=== PATIENT | female | born 1950 | race Caucasian/White ===

== ENCOUNTER 2017-08-21 13:05 | Day surgery (SDC) | payer MEDICARE, OTHER ==
[~2017-08-21] VITALS: Ht 170.2 cm; Wt 83.5 kg
[~2017-08-21 13:05] MED LIST: AMBIEN5 MG PO; GABAPENTIN600 MG PO; IMODIUM A-D2 M1 PO; PRILOSEC20 MG PO; SYNTHROID200 MCG PO; ZOFRAN4 MG PO
[2017-08-21] MEDS ORDERED: TYLENOL WITH C1 EACH PO (13:32)
[2017-08-21] MEDS ORDERED: ESCITALOPRAM OX20 MG PO (13:32)
[2017-08-21] MEDS ORDERED: BUPROPION XL150 MG PO (13:32)
--- NOTE | 2017-08-21 18:18 | NUR ---
08/21/171817 Phyllis Munroe 1813: PT ARRIVES TO PACU. SHE REPSONDS TO STIMULI.
--- NOTE | 2017-08-22 15:03 | OR ---
[facility] [address] [place], [place] [address] Signed DATE OF OPERATION: 08/21/2017 SURGEON: Nata Blandon MD PREOPERATIVE DIAGNOSIS: Persistent diarrhea since Cecilia fundoplication. POSTOPERATIVE DIAGNOSIS: 1. Sigmoid diverticulosis. 2. Mild proctitis. PROCEDURE: Total colonoscopy to cecum with biopsy of cecum and rectum. ANESTHESIA: Intravenous sedation with fentanyl 100 mcg and Versed 6 mg. INDICATION: This debilitated 66-year-old white woman was known to have significant esophageal dysmotility and reflux type symptoms. She was seen by Chemo Ruby MD in [place] and ultimately underwent laparoscopic Cecilia fundoplication. Her reflux symptoms seem to have improved though she still has some dysphagia as would be expected. Since the operation, however, she has had rather persistent unrelenting diarrhea. She is not known to have blood per rectum, family history of inflammatory bowel disease or colon cancer, and it is uncertain if perhaps there has been some affect on her vagal nerve trunks with operative intervention. She is admitted to undergo colonoscopy to assess for other etiologies of her diarrhea problem. She understands the risks of bleeding, infection, and perforation. FINDINGS: The prep was reasonably good. There was a minimal amount of solid stool still present. Complete colonoscopy was undertaken. Biopsies were taken of the cecum and rectum. There were numerous diverticula of the sigmoid colon. No sign of severe inflammation. There was mild proctitis, possibly bowel prep related. PROCEDURE: The patient was brought to the endoscopy suite and placed in lateral decubitus position, given intravenous sedation to the point of slurred speech and nystagmus. Digital rectal examination was normal. An Olympus video colonoscope was passed in the rectum and manipulated throughout the colon. Numerous diverticula were seen in the sigmoid. The scope was passed beyond the transverse colon to the right colon. There was a fair amount of semisolid stool, which required irrigation and so forth, but ultimately it is believed that the cecum was fully seen. Biopsies were taken through somewhat greenish bowel effluent of the cecum and biopsies obtained to assess for occult colitis. The scope was withdrawn from that point, examination throughout showed no abnormality other than the diverticula of the sigmoid. Retroflexed view of the rectum did show mild proctitis of uncertain and unlikely consequence. Biopsies were obtained there as well. The scope was Electronically Signed By: NATA BLANDON MD 08/22/17 1503 PATIENT NAME: BARBARA ROTHMAN OPERATIVE REPORT DATE OF : 50 PHYSICIAN: NATA BLANDON MD REPORT #: [id number] REPORT IS CONFIDENTIAL AND NOT TO BE RELEASED WITHOUT AUTHORIZATION [address] [address] Signed removed and the patient was taken to recovery room in good condition. CONCLUDING DIAGNOSIS: It is uncertain what the source of her diarrhea is. Notably, she does continue to take Prilosec. I would have her discontinue the Prilosec given her operative intervention and initiate Citrucel 1 tablespoon each day. She will see us back in 6 weeks, if she is not improved. MD MADI Amador/DEBBY /[id number] cc: MARIA G Lazaro Electronically Signed By: NATA BLANDON MD 08/22/17 1503 PATIENT NAME: BARBARA ROTHMAN FAUSTINO OPERATIVE REPORT DATE OF : 50 PHYSICIAN: NATA BLANDON MD REPORT #: [id number] REPORT IS CONFIDENTIAL AND NOT TO BE RELEASED WITHOUT AUTHORIZATION
== END 2017-08-21 19:05 | disposition home or self-care (01) ==
LOC: DS 13:05 → OPS 13:05 → DS 14:00 → OPS 14:00
PROVIDERS: Surgery
PROC: 0DBP8ZX Excision of Rectum, Via Natural or Artificial Opening Endoscopic, Diagnostic (ICD-10-PCS; 2017-08-21)
PROC: 0DBH8ZX Excision of Cecum, Via Natural or Artificial Opening Endoscopic, Diagnostic (ICD-10-PCS; principal; 2017-08-21 14:00)
DX: K52.9 Noninfective gastroenteritis and colitis, unspecified (principal); K57.30 Diverticulosis of large intestine without perforation or abscess without bleeding; K62.89 Other specified diseases of anus and rectum; K44.9 Diaphragmatic hernia without obstruction or gangrene; E66.3 Overweight; K21.9 Gastro-esophageal reflux disease without esophagitis; G47.30 Sleep apnea, unspecified; F32.9 Major depressive disorder, single episode, unspecified; D64.9 Anemia, unspecified; E89.0 Postprocedural hypothyroidism; Z90.49 Acquired absence of other specified parts of digestive tract; Z79.899 Other long term (current) drug therapy; Z98.890 Other specified postprocedural states; Z98.41 Cataract extraction status, right eye; Z98.42 Cataract extraction status, left eye; Z99.89 Dependence on other enabling machines and devices; Z68.29 Body mass index [BMI] 29.0-29.9, adult
CPT/HCPCS: 88305; 99152; 99153; J2250; J3010; J7120

== ENCOUNTER 2019-01-25 13:57 | Day surgery (SDC) | payer MEDICARE, OTHER ==
[~2019-01-25] VITALS: Ht 167.6 cm; Wt 69.4 kg
[~2019-01-25 13:57] MED LIST changes: +BUPROPION XL150 MG PO; +ESCITALOPRAM OX20 MG PO; +HYDROCODON-ACE1 EA10 PO; +IBUPROFEN600 MG PO; +LEVOTHYROXINE88 MCG PO; +MAPAP325 MG PO; +NORCO 5-325 TA1 EACH PO; +TYLENOL WITH C1 EACH PO; +ULTRAM50 MG PO
--- NOTE | 2019-01-25 16:20 | NUR ---
01/25/19 1620 Tali Yañez 1613- PT ARRIVES TO PACU EASILY AROUSABLE ALTHOUGH DROWSY. RESP EVEN AND UNLABORED. OXYGEN SAT HIGH 90'S TO 100% ON 2L VIA NC. 1619- OXYGEN TURNED OFF. OXYGEN SAT HIGH 90'S TO 100% ON RA. RESP EVEN AND UNLABORED. PT IS AROUSABLE AND OPENS EYES PERIODICALLY ON HER OWN, INSTANTLY FALLS BACK TO SLEEP.
--- NOTE | 2019-01-26 18:55 | OR ---
[facility] [address] [place], [place] [address] Signed DATE OF OPERATION: 01/25/2019 SURGEON: Nata Blandon MD PREOPERATIVE DIAGNOSES: 1. Persistent diarrhea. 2. Normal colonoscopy on August 21, 2017 (diverticulosis). 3. Recent CT scan with concentric lesion of mid transverse colon. POSTOPERATIVE DIAGNOSIS: No evidence of lesion of transverse colon or elsewhere; diverticulosis. PROCEDURE: Total colonoscopy to cecum with biopsy of rectum. ANESTHESIA: Intravenous sedation, fentanyl 100 mcg, and Versed 4 mg. INDICATION: This 68-year-old white woman is a patient of MARIA G Lazaro. She is known to have esophageal dysmotility and ultimately underwent laparoscopic Cecilia fundoplication in [place], [place] for intractable reflux problems. Since that time, she has had problems with diarrhea, abdominal pain, and so forth. She shows no evidence of gastroparesis on studies. She has undergone cholecystectomy for chronic cholecystitis in the past several months. She recently underwent CT scan under the direction of MARIA G Lazaro, which showed a concentric lesion of the mid transverse colon, highly suspect for cancer, though no sign of surrounding abnormality is noted. She was admitted at this time to undergo colonoscopy to better characterize this lesion if present. The risks of bleeding, infection, perforation, and so forth were reviewed with her. She understands and wished to proceed. FINDINGS: There was no lesion to correspond to the CT scan findings. I suspect the "high shutter speed" of the CT scan captured a segmental contraction. There were numerous diverticula of sigmoid and left colon. There was no sign of polyps, colitis, cancer, or other issues. DESCRIPTION OF PROCEDURE: The patient was brought to the endoscopy suite and placed in lateral decubitus position, given intravenous sedation to the point of slurred speech and nystagmus. Digital rectal Electronically Signed By: NATA BLANDON MD 01/26/19 8123 PATIENT NAME: BARBARA ROTHMAN OPERATIVE REPORT DATE OF : 50 REPORT #: [id number] PHYSICIAN: NATA BLANDON MD PCP: JANNETTE GARCIA REPORT IS CONFIDENTIAL AND NOT TO BE RELEASED WITHOUT AUTHORIZATION [facility] [address] [place], [place] [address] Signed examination was normal. An Olympus video colonoscope was passed in the rectum and manipulated throughout the colon ultimately intubating the cecum itself. The ileocecal valve and appendiceal orifice were normal. The scope was withdrawn from that point and careful inspection upon withdrawal of scope showed no sign of abnormality. Special care was taken in the transverse colon corresponding to the CT scan spurious findings. Further withdrawal visualized diverticulosis of the left colon and sigmoid. Scope was withdrawn to the rectum, which was biopsied to assess for inflammatory bowel disease or other problem. Retroflexed view was normal as well. The scope was removed and the patient was taken to recovery room in good condition. CONCLUDING DIAGNOSIS: Sigmoid diverticulosis. No evidence of transverse colon lesion. Biopsies obtained to assess for collagenous colitis or lymphocytic colitis. PLAN: She will return to the ongoing care of MARIA G Lazaro. We will review her path reports when they are available. MD MADI Amador/DEBBY /[id number] cc: MARIA G Lazaro Copies: JANNETTE GARCIA ~ Electronically Signed By: NATA BLANDON MD 01/26/19 1855 PATIENT NAME: BARBARA ROTHMAN OPERATIVE REPORT DATE OF : 50 REPORT #: [id number] PHYSICIAN: NATA BLANDON MD PCP: JANNETTE GARCIA REPORT IS CONFIDENTIAL AND NOT TO BE RELEASED WITHOUT AUTHORIZATION
== END 2019-01-25 17:25 | disposition home or self-care (01) ==
LOC: OPS 13:57 → DS 13:57 → OPS 14:45
PROVIDERS: Surgery
PROC: 0DBP8ZX Excision of Rectum, Via Natural or Artificial Opening Endoscopic, Diagnostic (ICD-10-PCS; principal; 2019-01-25 14:45)
DX: R19.7 Diarrhea, unspecified (principal); K57.30 Diverticulosis of large intestine without perforation or abscess without bleeding; K21.9 Gastro-esophageal reflux disease without esophagitis; D64.9 Anemia, unspecified; F32.9 Major depressive disorder, single episode, unspecified; E03.9 Hypothyroidism, unspecified; G47.30 Sleep apnea, unspecified; K22.4 Dyskinesia of esophagus; K81.2 Acute cholecystitis with chronic cholecystitis; Z88.5 Allergy status to narcotic agent; Z88.8 Allergy status to other drugs, medicaments and biological substances; Z99.89 Dependence on other enabling machines and devices
CPT/HCPCS: 99153; G0500; J2250; J3010; J7120

== ENCOUNTER 2019-02-03 05:50 | Day surgery (SDC) | payer MEDICARE, OTHER ==
[~2019-02-03] VITALS: Ht 167.6 cm; Wt 69.4 kg
--- NOTE | ~2019-02-03 | OR ---
[facility] [address] [place], [place] [address] Draft DATE OF OPERATION: 02/03/2019 SURGEON: Luz Maria Rojas MD PREOPERATIVE DIAGNOSIS: Endometrial mass. POSTOPERATIVE DIAGNOSIS: Multiple endometrial polyps. PROCEDURE: Hysteroscopy resection of endometrial polyps. ANESTHESIA: General LMA. ESTIMATED BLOOD LOSS: Minimal. DRAINS: None. INDICATIONS AND FINDINGS: The patient is a 68-year-old female who has been having upper abdominal as well as pelvic pain over the last several months. During the course of her evaluation, she was found to have a very thick endometrial stripe. Endometrial biopsy was not possible in the office. She has had no bleeding. It was felt that further evaluation of the endometrium was needed. At the time of hysteroscopy, the uterus was top-normal size. There was significant uterine descent. The cavity sounded to 9 cm. There were multiple large polyps within the cavity on an atrophic background. DESCRIPTION OF PROCEDURE: The patient was prepped and draped in the dorsal lithotomy position. A weighted speculum was placed and the anterior lip of the cervix was visualized and grasped with a single-tooth tenaculum. The cavity sounded to 9 cm. The endocervical canal was then dilated to a #9 dilator. The MyoSure device was placed and the cavity evaluated, and the multiple large polyps were seen. Hysteroscope was removed and polyp forceps were introduced and several large polyps were removed from the uterus just with the polyp forceps. Replacement of the hysteroscope revealed that there were a few polypoid remnants on the posterior aspect and there was one that was fairly flattened at the PATIENT NAME: BARBARA ROTHMAN OPERATIVE REPORT DATE OF : 50 REPORT #: [id number] PHYSICIAN: LUZ MARIA ROJAS MD PCP: JANNETTE GARCIA REPORT IS CONFIDENTIAL AND NOT TO BE RELEASED WITHOUT AUTHORIZATION [facility] [address] [place] [address] Draft fundus in the midline. The MyoSure LITE device was then used and some of the polyp at the fundus could be excised, but given the angle and the fact that it was at the fundus, made it very difficult to completely excise this. The remaining portions of the polyps posteriorly were removed with a MyoSure LITE as well. Following this, the procedure was terminated. The tenaculum was removed and there was no evidence of any ongoing bleeding from the cervix. The patient was then taken to the recovery room in good condition. MD JUAN M Alvarado/MODL /[id number] cc: MARIA G Lazaro Copies: JANNETTE GARCIA ~ PATIENT NAME: BARBARA ROTHMAN OPERATIVE REPORT DATE OF : 50 REPORT #: [id number] PHYSICIAN: LUZ MARIA ROJAS MD PCP: JANNETTE GARCIA REPORT IS CONFIDENTIAL AND NOT TO BE RELEASED WITHOUT AUTHORIZATION
--- NOTE | 2019-02-03 08:03 | NUR ---
02/03/19 0803 Tami,Maia 0753 PT ARRIVED TO PACU ON 6L VIA MASK AND ORAL AIRWAY IN PLACE. PT REACTIVE TO TACTILE STIMULI. RESP EVEN AND UNLABORED. 0755 PT OPENING EYES AND FOLLOWS COMMANDS TO OPEN EYES, ORAL AIRWAY REMOVED. PT ENCOURAGED TO DEEP BREATHE. 0801 MD AT BEDSIDE TALKING TO PT, O2 MASK REMOVED. PT DENIES PAIN AND NAUSEA. PT BACK TO SLEEP.
--- NOTE | 2019-02-03 08:24 | NUR ---
ICED WATER GIVEN. PATIENT DRINKING AND TOLERATING THAT WELL. CALL LIGHT W/IN REACH.
--- NOTE | 2019-02-03 09:32 | NUR ---
LE 0920: PATIENT UP TO BATHROOM WITH RN STANDBY. PATIENT AMBULATES WELL AND VOIDS 500 ML CLEAR YELLOW URINE AND REQ DC HOME. DISCHARGE INSTRUCTIONS ARE GIVEN IN PRESENCE OF HER SON, SHAHEEN AND BOTH VERBALIZE UNDERSTANDING. PATIENT GETTING DRESSED.
--- NOTE | 2019-02-03 09:50 | NUR ---
PT ALERT, ORIENTED AND SEEMS WELL PREPARED FOR TODAY. FELIZ PEACE HAD JUST LEFT PT'S RM, SHE SEEMED AT EASE WITH HIS CARE. PLEASANT VISIT, EXTENDED BLESSING, DR MCCURDY ENTERED WE FINISHED. WILL FOLLOW NEEDED
== END 2019-02-03 09:30 | disposition home or self-care (01) ==
LOC: DS 05:50
PROVIDERS: Obstetrics & Gynecology
PROC: 0UB98ZZ Excision of Uterus, Via Natural or Artificial Opening Endoscopic (ICD-10-PCS; principal; 2019-02-03 06:45)
DX: N84.0 Polyp of corpus uteri (principal); G47.33 Obstructive sleep apnea (adult) (pediatric); E89.0 Postprocedural hypothyroidism; F43.10 Post-traumatic stress disorder, unspecified; F12.90 Cannabis use, unspecified, uncomplicated; K21.9 Gastro-esophageal reflux disease without esophagitis; Z88.5 Allergy status to narcotic agent; Z88.8 Allergy status to other drugs, medicaments and biological substances; Z79.899 Other long term (current) drug therapy
CPT/HCPCS: 00952; J0330; J1100; J1885; J2250; J2405; J2704; J2765; J3010; J7120

== ENCOUNTER 2019-05-18 22:56 | Emergency (ER) | payer MEDICARE, OTHER ==
[~2019-05-18] VITALS: Ht 167.6 cm; Wt 67.6 kg
--- OUTSIDE RECORDS SUMMARY | 2019-05-18 23:00 | XMS ---
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 Paty has no Care Guidelines for this patient. Too VISIT COUNT (12 MO.) 1 GILMA Alvarenga TOTAL 1 NOTE: Visits indicate total known visits. ED/C VISIT TRACKING (12 MO.) 05/18/2019 22:57 GILMA [place] TYPE: Emergency COMPLAINT: - FALL/FOOT PAIN INPATIENT VISIT TRACKING (12 MO.) No inpatient visits to display in this time frame [email or web address]
[2019-05-19] MEDS ORDERED: TRAMADOL HCL50 MG PO (00:04)
== END 2019-05-19 00:31 | disposition home or self-care (01) ==
LOC: ED 22:56
DX: S93.601A Unspecified sprain of right foot, initial encounter (principal); F32.9 Major depressive disorder, single episode, unspecified; Z88.5 Allergy status to narcotic agent; Z88.8 Allergy status to other drugs, medicaments and biological substances; Z79.899 Other long term (current) drug therapy; W18.30XA Fall on same level, unspecified, initial encounter
CPT/HCPCS: 73630; 99284

== ENCOUNTER 2019-08-21 17:44 | Observation (INO) | payer MEDICARE, OTHER ==
[~2019-08-21] VITALS: Ht 167.6 cm; Wt 67.6 kg
--- OUTSIDE RECORDS SUMMARY | ~2019-08-21 | XMS | Encounter Summary ---
Demographics + + + | Address | [address] | | | [place] [address] | + + + | Home Phone | | + + + | Preferred Language | Unknown | + + + | Marital Status | | + + + | Christian Affiliation | 1077 | + + + | Race | Unknown | + + + | Ethnic Group | Unknown | + + + Author + + + | Author | [facility] | | | and Vladislavana | + + + | Organization | [facility] | | | and Vladislavana | + + + | Address | Unknown | + + + | Phone | Unavailable | + + + Support + + +---------+ + | Name | Relationship | Address | Phone | + + +---------+ + | Devonte Nixon | ECON | Unknown | | + + +---------+ + Care Team Providers + +------+ + | Care Treating Plant Pumper Name | Role | Phone | + +------+ + PCP | Unavailable | + +------+ + Encounter Details +--------+ + + + + | Date | Type | Department | Care Team | Description | +--------+ + + + + | 06/21/ | Hospital | [facility] | | | | 1992 | Encounter | MED CTR XRAY [address] | | | | | | [address] | | | | | | [place] [address] | | | | | | [phone] | | | +--------+ + + + + Social History + +-------+ +--------+------+ | Tobacco Use | Types | Packs/Day | Years | Date | | | | | Used | | + +-------+ +--------+------+ | Never Assessed | | | | | + +-------+ +--------+------+ + + + | Sex Assigned at | Date Recorded | | | | + + + | Not on file | | + + + + + + + | Job Start Date | Occupation | Industry | + + + + | Not on file | Not on file | Not on file | + + + + + + + + | Travel History | Travel Start | Travel End | + + + + + + | No recent travel history available. | + + documented as of this encounter Plan of Treatment +--------+---------+ + + + | Date | Type | Specialty | Care Team | Description | +--------+---------+ + + + | 08/26/ | Office | Gastroenterology | [facility] | | 2019 | Visit | | RAJAN [address] | | | | | | [address] | | | | | | [place] | | | | | | [address] | | | | | | | | +--------+---------+ + + + documented as of this encounter Visit Diagnoses Not on filedocumented in this encounter"
--- OUTSIDE RECORDS SUMMARY | ~2019-08-21 | XMS | Encounter Summary ---
Demographics + + + | Address | [address] | | | [place] [address] | + + + | Home Phone | | + + + | Preferred Language | Unknown | + + + | Marital Status | Single | + + + | Jew Affiliation | Unknown | + + + | Race | White | + + + | Ethnic Group | Not or | + + + Author + + + | Author | [facility] | + + + | Organization | [facility] | + + + | Address | Unknown | + + + | Phone | Unavailable | + + + Support + + +---------+ + | Name | Relationship | Address | Phone | + + +---------+ + | Devonte Mustafaons | ECON | Unknown | | + + +---------+ + | Chuy Mustafaons | ECON | Unknown | | + + +---------+ + Care Team Providers + +------+ + | Care Deposit Refund Clerk Name | Role | Phone | + +------+ + | Akilah Phoenix | PCP | | + +------+ + Encounter Details +--------+ + + + + | Date | Type | Department | Care Team | Description | +--------+ + + + + | 10/03/ | MyChart | Digestive Health | Jacquelin Matta MD | Re: Flu Shot | | 2017 | Encounter | [facility] [address] | [address] | | | | | [address] | [address] [place], | | | | | Mailcode: Center | [place] [address] | | | | | for [facility] and | [phone] | | | | | [facility] | | | | | | [place], [place] | | | | | | [address] | | | | | | [phone] | | | +--------+ + + + + Social History + +-------+ +--------+------+ | Tobacco Use | Types | Packs/Day | Years | Date | | | | | Used | | + +-------+ +--------+------+ | Never Smoker | | | | | + +-------+ +--------+------+ + +---+---+---+ | Smokeless Tobacco: | | | | | Never Used | | | | + +---+---+---+ + + +---------+ + | Alcohol Use | Drinks/Week | oz/Week | Comments | + + +---------+ + | No | | | | + + +---------+ + + + + | Sex Assigned at [...] Description | +--------+---------+ + + + | 11/22/ | Office | Gastroenterology | Bogdan Austin, | | | 2019 | Visit | | [address] | | | | | | [address] | | | | | | [place], [place] | | | | | | [address] | | | | | | [phone] | | | | | | | | +--------+---------+ + + + documented as of this encounter Visit Diagnoses Not on filedocumented in this encounter"
--- OUTSIDE RECORDS SUMMARY | ~2019-08-21 | XMS | Encounter Summary ---
Demographics + + + | Address | [address] | | | [place] [address] | + + + | Home Phone | | + + + | Preferred Language | Unknown | + + + | Marital Status | Single | + + + | Evangelical Affiliation | Unknown | + + + | Race | White | + + + | Ethnic Group | Not or | + + + Author + + + | Author | [facility] | + + + | Organization | [facility] | + + + | Address [...] Team Providers + +------+ + | Care Systems Software Specialist Name | Role | Phone | + +------+ + | Akilah Phoenix | PCP | | + +------+ + Reason for Visit Consultation (Routine) +--------+--------+ + + + + | Status | Reason | Specialty | Diagnoses / | Referred By | Referred To | | | | | Procedures | Contact | Contact | +--------+--------+ + + + + | Closed | | Gastroenterol | Diagnoses | [place], | [facility] | | | | ogy | Dysphagia | MD Jacquelin | [address] | | | | | Procedures | [address] | [address] | | | | | CONSULT TO | [address] | [address] | | | | | GI PROCEDURE | [address] | Mailcode: | | | | | UNIT: | [place], [place] | [address] | | | | | ESOPHAGEAL | [address] | [place] | | | | | MANOMETRY | Phone: | [address] | | | | | | [phone] | [place], | | | | | | Fax: | [place] [address] | | | | | | [phone] | Phone: | | | | | | | [phone] | | | | | | | Fax: | | | | | | | [phone] | +--------+--------+ + + + + Encounter Details +--------+ + + + + | Date | Type | Department | Care Team | Description | +--------+ + + + + | 02/21/ | Hospital | [facility] | Nurse, [address] | | | 2015 | Encounter | [facility] [address] | [facility] | | | | | [address] Mailcode: | Road [place], [place] | | | | | [address] | [address] | | | | | [facility], | | | | | | [address] | | | | | | [place], [place] | | | | | | [address] | | | | | | [phone] | | | +--------+ + + + [...] + + documented as of this encounter Last Filed Vital Signs + + + + + | Vital Sign | Reading | Time Taken | Comments | + + + + + | Blood Pressure | 154/81 | 02/21/2015 4:36 PM | | | | | PDT | | + + + + + | Pulse | 74 | 02/21/2015 4:36 PM | | | | | PDT | | + + + + + | Temperature | 37.1 C (98.7 F) | 02/21/2015 4:36 PM | | | | | PDT | | + + + + + | Respiratory Rate | 16 | 02/21/2015 4:36 PM | | | | | PDT | | + + + + + | Oxygen Saturation | 100% | 02/21/2015 4:36 PM | | | | | PDT | | + + + + + | Inhaled Oxygen | - | - | | | Concentration | | | | + + + + + | Weight | 91.6 kg (202 lb) | 02/21/2015 4:36 PM | | | | | PDT | | + + + + + | Height | - | - | | + + + + + | Body Mass Index | 32.6 | 02/21/2015 3:10 PM | | | | | PDT | | + + + + + documented in this encounter Medications at Time of Discharge + + + +---------+ + + | Medication | Sig | Dispensed | Refills | Start | End Date | | | | | | Date | | + + + +---------+ + + | BUPROPION XL 150 | Take 150 mg by mouth | | 0 | 01/26/20 | | | mg oral tablet | once daily. | | | 15 | | | extended release 24 | | | | | | | hr | | | | | | + + + +---------+ + + | GABAPENTIN 300 mg | 600 mg once daily. | | 1 | 02/18/20 | | | oral capsule | | | | 15 | | + + + +---------+ + + | LEVOTHYROXINE 150 | Take 150 mcg by | | 0 | 02/18/20 | | | mcg oral tablet | mouth once daily. | | | 15 | | + + + +---------+ + + | OMEPRAZOLE 20 mg | Take 20 mg by mouth | | 0 | 12/10/19 | | | oral capsule,delayed | once daily at | | | 15 | | | release(DR/EC) | bedtime. | | | | | + + + +---------+ + + | ZOLPIDEM 5 mg oral | | | 0 | 02/18/20 | | | tablet | | | | 15 | | + + + +---------+ + + documented as of this encounter [...] [address] | | | | | | [place], [place] | | | | | | [address] | | | | | | [phone] | | | | | | | | +--------+---------+ + + + documented as of this encounter Procedures + +--------+ + + + | Procedure Name | Priori | Date/Time | Associated Diagnosis | Comments | | | ty | | | | + +--------+ + + + | ESOPHAGEAL MOTILITY | | 02/21/2015 | | Results for this | | | | 12:00 AM | | procedure are in the | | | | PDT | | results section. | + +--------+ + + + | ESOPHAGEAL MOTILITY | | 02/21/2015 | | Results for this | | | | 12:00 AM | | procedure are in the | | | | PDT | | results section. | + +--------+ + + + documented in this encounter Results ESOPHAGEAL MOTILITY (02/21/2015 12:00 AM PDT) + + + | Narrative | Performed At | + + + | | | + + + ESOPHAGEAL MOTILITY (02/21/2015 12:00 AM PDT) + + + | Narrative | Performed At | + + + | | | + + + documented in this encounter Visit Diagnoses Not on filedocumented in this encounter"
--- OUTSIDE RECORDS SUMMARY | ~2019-08-21 | XMS | Encounter Summary ---
Demographics + + + | Address | [address] | | | [place] [address] | + + + | Home Phone | | + + + | Preferred Language | Unknown | + + + | Marital Status | | + + + | Advent Affiliation | 1077 | + + + | Race | Unknown | + + + | Ethnic Group | Unknown | + + + Author + + + | Author | [facility] | | | and Vladislavana | + + + | Organization | [facility] | | | and Vladislavana | [...] Team Providers + +------+ + | Care Allocations Clerk Name | Role | Phone | + +------+ + PCP | Unavailable | + +------+ + Encounter Details +--------+ + + + + | Date | Type | Department | Care Team | Description | +--------+ + + + + | 06/20/ | Hospital | [facility] | | | | 1992 | Encounter | MED CTR LABORATORY | | | | | | [address] | | | | | | [place] | | | | | | [address] | | | | | | [phone] | | | +--------+ + + + [...] | 08/26/ | Office | Gastroenterology | [facility] | | | 2019 | Visit | | RAJAN [address] | | | | | | [address] | | | | | | [place] | | | | | | [id number] | | | | | | | | +--------+---------+ + + + documented as of this encounter Visit Diagnoses Not on filedocumented in this encounter"
--- OUTSIDE RECORDS SUMMARY | ~2019-08-21 | XMS | Encounter Summary ---
Demographics + + + | Address | [address] | | | [place] [address] | + + + | Home Phone | | + + + | Preferred Language | Unknown | + + + | Marital Status | Single | + + + | Hoahaoism Affiliation | Unknown | + + + | Race | White | + + + | Ethnic Group | Not or | + + + Author + + + | Author | [facility] | + + + | Organization | [facility] | + + + | Address | [...] Team Providers + +------+ + | Care Casino Floor Runner Name | Role | Phone | + [...] Closed | | Gastroenterol | Diagnoses | [place], | Gas Endo | | | | ogy | Dysphagia | MD Jacquelin | [address] | | | | | Procedures | [address] | [address] | | | | | CONSULT TO | [address] | [address] | | | | | GI PROCEDURE | [address] | Mailcode: | | | | | UNIT: | [place], [place] | [address] | | | | | ESOPHAGEAL | [address] | [place] | | | | | MANOMETRY | Phone: | [address] [employer] [address] | | | | | | [phone] | [place], | | | | | | Fax: | [place] [address] | | | | | | [phone] | Phone: | | | | | | | [phone] | | | | | | | Fax: | | | | | | | [phone] | +--------+--------+ + + + + Encounter Details +--------+ + + + + | Date | Type | Department | Care Team | Description | +--------+ + + + + | 02/21/ | Hospital | [facility] | Nurse, Gip [address] | | | 2015 | Encounter | [address] | [facility] | | | | | Jarred Lee Mailcode: | Road [place], [place] | | | | | [address] | [address] | | | | | Health and Healing, | | | | | | [address] | | | | | | [place], [place] | | | | | | [address] | | | | | | [phone] | | | +--------+ + + + [...] Rd | | | | | | [place], [place] | | | | | | [address] | | | | | | [phone] | | | | | | | [...]
--- OUTSIDE RECORDS SUMMARY | ~2019-08-21 | XMS | Encounter Summary ---
Demographics + + + | Address | [address] | | | [place] [address] | + + + | Home Phone | | + + + | Preferred Language | Unknown | + + + | Marital Status | | + + + | Uatsdin Affiliation | 1077 | + + + | Race | Unknown | + + + | Ethnic Group | Unknown | + + + Author + + + | Author | [facility] | | | and Vladislavana | + + + | Organization | [facility] | | | and [...] Team Providers + +------+ + | Care Corrugator Machine Operator Name | Role | Phone | + +------+ + PCP | Unavailable | + +------+ + Encounter Details +--------+ + + + + | Date | Type | Department | Care Team | Description | +--------+ + + + + | 09/01/ | Hospital | [facility] | | | | 1993 | Encounter | MED CTR EMERGENCY | | | | | | CENTER [address] | | | | | | [place] | | | | | | [address] | | | | | | [phone] | | | +--------+ + + + [...] | 08/26/ | Office | Gastroenterology | [facility] | | | 2019 | Visit | | RAJAN Ramirez [address] | | | | | | [address] | | | | | | [place] | | | | | | [id number] | | | | | | | | +--------+---------+ + + + documented as of this encounter Visit Diagnoses Not on filedocumented in this encounter"
--- OUTSIDE RECORDS SUMMARY | ~2019-08-21 | XMS | Encounter Summary ---
Demographics + + + | Address | [address] | | | [place] [address] | + + + | Home Phone | | + + + | Preferred Language | Unknown | + + + | Marital Status | | + + + | Scientologist Affiliation | 1077 | + + + | Race | Unknown | + + + | Ethnic Group | Unknown | + + + Author + + + | Author | [facility] | | | and Vladislavana | + + + | Organization | [facility] | | | and [...] Team Providers + +------+ + | Care Mdm Developer Name | Role | Phone | + +------+ + PCP | Unavailable | + +------+ + Encounter Details +--------+ + + + + | Date | Type | Department | Care Team | Description | +--------+ + + + + | 09/01/ | Hospital | [facility] | | | | 1993 | Encounter | MED CTR EMERGENCY | | | | | | CENTER [address] | | | | | | [place] | | | | | | [address] | | | | | | [phone] | | | +--------+ + + + [...] | 08/26/ | Office | Gastroenterology | [facility] | | | 2019 | Visit | | RAJAN [address] | | | | | | [address] | | | | | | [place] | | | | | | [phone] | | | | | | | | +--------+---------+ + + + documented as of this encounter Visit Diagnoses Not on filedocumented in this encounter"
--- OUTSIDE RECORDS SUMMARY | ~2019-08-21 | XMS | Encounter Summary ---
Demographics + + + | Address | [address] | | | [place] [address] | + + + | Home Phone | | + + + | Preferred Language | Unknown | + + + | Marital Status | | + + + | Moravian Affiliation | 1077 | + + + | Race | Unknown | + + + | Ethnic Group | Unknown | + + + Author + + + | Author | [facility] | | | and Vladislavana | + + + | Organization | [facility] | | | and Vladislavana [...] Team Providers + +------+ + | Care Paper Cutting Machine Operator Name | Role | Phone | + +------+ + PCP | Unavailable | + +------+ + Encounter Details +--------+ + + + + | Date | Type | Department | Care Team | Description | +--------+ + + + + | 05/10/ | Hospital | [facility] | | | | 1992 | Encounter | MED CTR EMERGENCY | | | | | | CENTER [address] | | | | | | [place] | | | | | | [address] | | | | | | [phone] | | | +--------+ + + + [...] | 08/26/ | Office | Gastroenterology | [facility] | | | 2019 | Visit | | RAJAN [address] | | | | | | [address] | | | | | | [place] | | | | | | [id number] | | | | | | | | +--------+---------+ + + + documented as of this encounter Visit Diagnoses Not on filedocumented in this encounter"
--- OUTSIDE RECORDS SUMMARY | ~2019-08-21 | XMS | Encounter Summary ---
Demographics + + + | Address | [address] | | | [place] [address] | + + + | Home Phone | | + + + | Preferred Language | Unknown | + + + | Marital Status | Single | + + + | Rastafarian Affiliation | Unknown | + + + | Race | White | + + + | Ethnic Group | Not or | + + + Author + + + | Author | [facility] | + + + | Organization | [facility] | + + + | Address | [...] Team Providers + +------+ + | Care Residential Interior Designer Name | Role | Phone | + +------+ + | Akilah Phoenix | PCP | | + +------+ + Reason for Referral Consultation (Routine) +--------+--------+ + + + + | Status | Reason | Specialty | Diagnoses / | Referred By | Referred To | | | | | Procedures | Contact | Contact | +--------+--------+ + + + + | Closed | | Gastroenterol | Diagnoses | Sigrid, | Gas Endo | | | | ogy | Dysphagia | MD Jacquelin | [address] | | | | | Procedures | [address] | [address] | | | | | CONSULT TO | [address] | [address] | | | | | GI PROCEDURE | [address] | Mailcode: | | | | | UNIT: | [place], [place] | [address] | | | | | ESOPHAGEAL | [address] | [place] | | | | | MANOMETRY | Phone: | [employer] | | | | | | [phone] | [place], | | | | | | Fax: | [place] [address] | | | | | | [phone] | Phone: | | | | | | | [phone] | | | | | | | Fax: | | | | | | | [phone] | +--------+--------+ + + + + Reason for Visit + + + | Reason | Comments | + + + | New patient | | | consultation | | + + + Intake Referral (Routine) +--------+--------+ + + + + | Status | Reason | Specialty | Diagnoses / | Referred By | Referred To | | | | | Procedures | Contact | Contact | +--------+--------+ + + + + | Closed | | Gastroenterol | Diagnoses | Lance, | Gas Faculty | | | | ogy | Dysphagia, | Huy Nunn MD | [facility] [address] | | | | | unspecified( | [address] | | | | | [phone]) | [address] | Mailcode: | | | | | Esophageal | [address] | Center for | | | | | reflux | [place], | Health and | | | | | | [place] [address] | Healing, | | | | | | Phone: | [facility] [address] | | | | | | [phone] | [place], [place] | | | | | | Fax: | [address] | | | | | | [phone] | Phone: | | | | | | | [phone] | | | | | | | Fax: | | | | | | | [phone] | +--------+--------+ + + + + Encounter Details +--------+---------+ + + + | Date | Type | Department | Care Team | Description | +--------+---------+ + + + | 02/21/ | Office | Digestive Health | Jacquelin Matta MD | Dysphagia (Primary | | 2015 | Visit | [facility] at [facility] [address] | [address] | Dx); | | | | [address] | [address] [place], | Gastroesophageal | | | | Mailcode: [place] | [place] [address] | reflux disease with | | | | for Health and | [phone] | esophagitis; Hiatal | | | | Healing, [address] | | hernia with | | | | [place], [place] | | gastroesophageal | | | | [address] | | reflux | | | | [phone] | | | +--------+---------+ + + + Social History + +-------+ [...] + + + | Blood Pressure | 142/76 | 02/21/2015 3:10 PM | | | | | PDT | | + + + + + | Pulse | 77 | 02/21/2015 3:10 PM | | | | | PDT | | + + + + + | Temperature | 37.1 C (98.7 F) | 02/21/2015 3:10 PM | | | | | PDT | | + + + + + | Respiratory Rate | 18 | 02/21/2015 3:10 PM | | | | | PDT | | + + + + + | Oxygen Saturation | 99% | 02/21/2015 3:10 PM | | | | | PDT | | + + + + + | Inhaled Oxygen | - | - | | | Concentration | | | | + + + + + | Weight | 91.7 kg (202 lb 3.2 | 02/21/2015 3:10 PM | | | | oz) | PDT | | + + + + + | Height | 167.6 cm (5' 6") | 02/21/2015 3:10 PM | | | | | PDT | | + + + + + | Body Mass Index | 32.64 | 02/21/2015 3:10 PM | | | | | PDT | | + + + + + documented in this encounter Progress Notes Nikolai Millan MD - 02/22/2015 11:16 AM [facility] have seen and examined the patient o n 02/21/15 and affirmed the julien elements of the history and performed the julien elements of the physical examination. I formulated the assessment and plan with the resident. I agree with Atiya Matta documentation. Jacquelin Walsh MD - 02/20/2015 11:10 AM [facility] - Initial Visit Author: Jacquelin Matta MD Attending: Pete Millan MD IMPRESSION 64 yo female with a known 10 cm hiatal hernia here referred here for high res manometry alexandra or to hernia repair with symptoms of GERD and dysphagia. Able to arrange for high resolution manometry today to evaluate for esophageal motility disorder. RECOMMENDATIONS High res manometry today This plan was discussed and formulated with the gastroenterology attending of record, Dr. Faby jackson, who agrees with the above assessment and recommendations. Reason for Consult: dysphagia, esophageal dysmotility HPI: Patient has 10 cm hiatal hernia, has been seeing Dr. Lucas in [place] who is planning magda stiven to fix the hernia but is requesting work up for esophageal motility disorder prior. Feels like food gets stuck in her mid sternum, food often comes back up. Wakes up at night with GERD. Symptoms have been going on for couple years. Wondering if GERD originated from p urging when she had eating disorder, which she has had for 20 years. Often chokes on meat. S ometimes feels like liquids gets stuck in her chest as well, can't get her breath. Has been intentionally altering her diet to try and lose weight, purges and restricts sometimes. Has lost 12# since September, but thinks it is related to grief from losing her . Appetite is unchanged. Cold foods don't make symptoms worse. More with solids. Often has to purge wh en she feels like the food get stuck. No odynophagia. Takes omeprazole 20 mg BID, before meals. Has had colonoscopy in the past but can't remember when. Has BM every couple days, dependin g on how much she eats. No blood in the stool. GI Relevant PMH / Prior Endoscopy: 11/2008 esophagram 10 cm hiatal hernia and corckscrew esophagus 09/2013 EGD Tortuous esophagus, mild distal esophagitis, mild antral gastritis, large hiatal hernia PATH: mild esophagitis, mild gastritis, no HP, normal small bowel 01/2014 Esophagram Hiatal hernia, corck screwing of esophagus with dysmotility PAST MEDICAL HISTORY Arthritis Hypothyroid HOME MEDICATIONS Ambien Omeprazole 20 mg BID Gabapentin Thyroid ALLERGIES Benadryl SURGICAL HISTORY Low back, neck Appendectomy cataract FAMILY HISTORY No family history of colon cancer SOCIAL HISTORY [facility] in [facility] No tobacco No etoh No drugs REVIEW OF SYSTEMS CONSTITUTIONAL: negative for fatigue, fever, chills, poor appetite, weight gain, and weight loss HEENT: negative for headache, hearing changes, ear pain, rhinorrhea, nasal congestion, sore throat, blurry vision, double vision, and dysphagia RESPIRATORY: negative for shortness of breath, dyspnea on exertion, cough, wheezing, and pl euritic chest pain CARDIOVASCULAR: negative for chest pain, irregular heart beat, rapid heart rate, palpitatio ns, syncope, paroxysmal nocturnal dyspnea and orthopnea GASTROINTESTINAL: negative for abdominal pain, nausea, vomiting, constipation, diarrhea, bl oody stools, melena, BRBPR, and reflux symptoms GENITOURINARY: negative for urinary incontinence, nocturia, painful urination, frequent uri nation, blood in urine and change in urinary volume MUSCULOSKELETAL: negative for joint swelling, joint stiffness, muscle pain and muscular wea kness NEUROLOGICAL: negative for headache, weakness, paralysis, parasthesias, visual changes, beh avior changes, vertigo, and parathesia SKIN: negative for rash and wounds ALLERGY:negative for seasonal/environmental allergies HEME/LYMPH: negative for pallor, bruising, bleeding problems, petechiae, blood clots ENDOCRINE: negative for weight gain, cold intolerance, heat intolerance, polyuria and polyd ipsia PSYCHIATRIC: eating disorder PHYSICAL EXAM BP 142/76 | Pulse 77 | Temp (Src) 37.1 C (98.7 F) (Oral) | RR 18 | Ht 1.676 m (5' 6") | Wt 91.717 kg (202 lb 3.2 oz) | SpO2 99% | BMI 32.65 kg/(m^2) General: Awake, alert, oriented. No distress. Well-appearing. HEENT: Mucous membranes moist. No oral lesions. No scleral incterus. No conjuctival injecti on. Neck: Full painless ROM. No lymphadenopathy, masses or thyromegaly. Cardiovascular: Regular rhythm, normal rate. No murmurs, clicks, or rubs. 2+ pulses. No JVD . Chest:Clear to auscultation bilateral with good air entry. No accessory muscle use. Abdomen: Soft non-tender, non-distended. Normoactive bowel sounds. No hepatosplenomegaly. Extremities: Full painless ROM. No joint swelling or erythema. Skin: No rashes or lesions. documented in this encoun ter Plan of Treatment +--------+---------+ + + + | Date | Type | Specialty | Care Team | Description | +--------+---------+ + + + | 11/22/ | Office | Gastroenterology | Bogdan Austin, | | | 2019 | Visit | | [address] | | | | | | [facility] | | | | | | [place], [place] | | | | | | [address] | | | | | | [phone] | | | | | | | | +--------+---------+ + + + documented as of this encounter Visit Diagnoses + + | Diagnosis | + + | Dysphagia - Primary | + + | Gastroesophageal reflux disease with esophagitis | + + | Hiatal hernia with gastroesophageal reflux Esophageal reflux | + + documented in this encounter
--- OUTSIDE RECORDS SUMMARY | ~2019-08-21 | XMS | Encounter Summary ---
Demographics + + + | Address | [address] | | | [place] [address] | + + + | Home Phone | | + + + | Preferred Language | Unknown | + + + | Marital Status | | + + + | Oriental Orthodox Affiliation | 1077 | + + + | Race | Unknown | + + + | Ethnic Group | Unknown | + + + Author + + + | Author | [facility] | | | and [place]isl[place]ana | + + + | Organization | [facility] | | | and [place]isl[place] [...] Team Providers + +------+ + | Care Climbing Guide Name | Role | Phone | + +------+ + PCP | Unavailable | + +------+ + Encounter Details +--------+ + + + + | Date | Type | Department | Care Team | Description | +--------+ + + + + | 05/21/ | Hospital | [facility] | | | | 1993 - | Encounter | MED CTR GENERIC PSY | | | | | | CONV DEPT [address] | | | | 06/03/ | | [address] [place], | | | | 1993 | | [place] [address] | | | | | | [phone] | | | +--------+ + + + [...] | 08/26/ | Office | Gastroenterology | [facility], | | | 2019 | Visit | | RAJAN [address] | | | | | | [address] | | | | | | [place] | | | | | | [address] | | | | | | | | +--------+---------+ + + + documented as of this encounter Visit Diagnoses Not on filedocumented in this encounter"
--- OUTSIDE RECORDS SUMMARY | ~2019-08-21 | XMS | Encounter Summary ---
Demographics + + + | Address | [address] | | | [place] [address] | + + + | Home Phone | | + + + | Preferred Language | Unknown | + + + | Marital Status | | + + + | Buddhist Affiliation | 1077 | + + + | Race | Unknown | + + + | Ethnic Group | Unknown | + + + Author + + + | Author | [facility] | | | and [place]isl[place] | + + + | Organization | [facility] | | | and [place] [...] Team Providers + +------+ + | Care Board Catcher Name | Role | Phone | + +------+ + PCP | Unavailable | + +------+ + Encounter Details +--------+ + + + + | Date | Type | Department | Care Team | Description | +--------+ + + + + | 11/10/ | Hospital | [facility] | | | | 1993 - | Encounter | MED CTR GENERIC PSY | | | | | | CONV DEPT [address] | | | | 11/16/ | | [address], | | | | 1993 | | [place] [address] | | | | | | [phone] | | | +--------+ + + + [...] | 08/26/ | Office | Gastroenterology | [facility], | | | 2019 | Visit | | RAJAN [address] | | | | | | [address] | | | | | | [place] | | | | | | [address] | | | | | | | | +--------+---------+ + + + documented as of this encounter Visit Diagnoses Not on filedocumented in this encounter"
--- OUTSIDE RECORDS SUMMARY | ~2019-08-21 | XMS | Encounter Summary ---
Demographics + + + | Address | [address] | | | [place] [address] | + + + | Home Phone | | + + + | Preferred Language | Unknown | + + + | Marital Status | | + + + | Orthodoxy Affiliation | 1077 | + + + | Race | Unknown | + + + | Ethnic Group | Unknown | + + + Author + + + | Author | [facility] | | | and [place] | + + + | Organization | [facility] | | | and [place] [...] Team Providers + +------+ + | Care Cytogenetic Technologist Name | Role | Phone | + +------+ + | Valentine Oh MD | PCP | | + +------+ + Encounter Details +--------+ + + + + | Date | Type | Department | Care Team | Description | +--------+ + + + + | 04/09/ | Hospital | [address] | Elham Burkett, | | | 1999 - | Encounter | [facility] | MD Mario Jernigan | | | | | GENERIC OP CONV DEPT | [place] [address] | | | 04/10/ | | [address] | [phone] | | | 1999 | | [place] | | | | | | [address] | | | | | | [phone] | | | +--------+ + + + [...] | 08/26/ | Office | Gastroenterology | [facility], | | | 2019 | Visit | | RAJAN [address] | | | | | | [address] | | | | | | [place] | | | | | | [address] | | | | | | | | +--------+---------+ + + + documented as of this encounter Visit Diagnoses Not on filedocumented in this encounter"
--- OUTSIDE RECORDS SUMMARY | ~2019-08-21 | XMS | Encounter Summary ---
Demographics + + + | Address | [address] | | | [place] [address] | + + + | Home Phone | | + + + | Preferred Language | Unknown | + + + | Marital Status | Single | + + + | Christian Affiliation | Unknown | + + + | Race | White | + + + | Ethnic Group | Not or | + + + Author + + + | Author | [facility] | + + + | Organization | [facility] | + + + | [...] Team Providers + +------+ + | Care Debone Supervisor Name | Role | Phone | + +------+ + | Akilah Phoenix | PCP | | + +------+ + Encounter Details +--------+ + + + + | Date | Type | Department | Care Team | Description | +--------+ + + + + | 08/04/ | MyChart | Digestive Health | Bogdan Austin, | Loperamide | | 2019 | Encounter | [facility] [address] | [address] | | | | | [address] | [address] | | | | | Mailcode: Center | [place], [place] | | | | | for Health and | [address] | | | | | [place] [address] | [phone] | | | | | [place], [place] | | | | | | [address] | | | | | | [phone] | | | +--------+ + + + [...] Rd | | | | | | [place], [place] | | | | | | [address] | | | | | | [phone] | | | | | | | | +--------+---------+ + + + documented as of this encounter Visit Diagnoses Not on filedocumented in this encounter"
--- OUTSIDE RECORDS SUMMARY | ~2019-08-21 | XMS | Encounter Summary ---
Demographics + + + | Address | [address] | | | [place] [address] | + + + | Home Phone | | + + + | Preferred Language | Unknown | + + + | Marital Status | | + + + | Lutheran Affiliation | 1077 | + + + | Race | Unknown | + + + | Ethnic Group | Unknown | + + + Author + + + | Author | [facility] | | | and [place]isl[place] | + + + | Organization | [facility] | | | and [place] | [...] Team Providers + +------+ + | Care Clinical Quality Assurance Specialist Name | Role | Phone | + +------+ + PCP | Unavailable | + +------+ + Encounter Details +--------+ + + + + | Date | Type | Department | Care Team | Description | +--------+ + + + + | 09/12/ | Hospital | [facility] | | | | 1996 | Encounter | MED CTR LABORATORY | | | | | | [address] | | | | | | [place] | | | | | | [address] | | | | | | [phone] | | | +--------+ + + + [...] | 08/26/ | Office | Gastroenterology | [facility] | | | 2019 | Visit | | RAJAN [address] | | | | | | [address] | | | | | | [place] | | | | | | [phone] | | | | | | | | +--------+---------+ + + + documented as of this encounter Visit Diagnoses Not on filedocumented in this encounter"
--- OUTSIDE RECORDS SUMMARY | ~2019-08-21 | XMS | Encounter Summary ---
Demographics + + + | Address | [address] | | | [place] [address] | + + + | Home Phone | | + + + | Preferred Language | Unknown | + + + | Marital Status | | + + + | Jew Affiliation | 1077 | + + + | Race | Unknown | + + + | Ethnic Group | Unknown | + + + Author + + + | Author | [facility] | | | and Vladisl[place]ana | + + + | Organization | [facility] | | | and [place] [...] Team Providers + +------+ + | Care Monitor Car Operator Name | Role | Phone | + +------+ + PCP | Unavailable | + +------+ + Encounter Details +--------+ + + + + | Date | Type | Department | Care Team | Description | +--------+ + + + + | 04/02/ | Hospital | [facility] | | | | 1992 - | Encounter | MED CTR GENERIC IP | | | | | | CONV DEPT [address] | | | | 04/03/ | | [address], | | | | 1992 | | [place] [address] | | | | | | [phone] | | | +--------+ + + + [...] | 08/26/ | Office | Gastroenterology | [facility], | | | 2019 | Visit | | RAJAN [address] | | | | | | [address] | | | | | | [place] | | | | | | [address] | | | | | | | | +--------+---------+ + + + documented as of this encounter Visit Diagnoses Not on filedocumented in this encounter"
--- OUTSIDE RECORDS SUMMARY | ~2019-08-21 | XMS | Encounter Summary ---
Demographics + + + | Address | [address] | | | [place] [address] | + + + | Home Phone | | + + + | Preferred Language | Unknown | + + + | Marital Status | | + + + | Shinto Affiliation | 1077 | + + + | Race | Unknown | + + + | Ethnic Group | Unknown | + + + Author + + + | Author | [facility] | | | and Vladislavana | + + + | Organization | [facility] | | | and Vladislavana [...] Team Providers + +------+ + | Care Leather Etcher Name | Role | Phone | + +------+ + | Valentine Oh MD | PCP | | + +------+ + Encounter Details +--------+ + + + + | Date | Type | Department | Care Team | Description | +--------+ + + + + | 08/26/ | Hospital | [facility] | Adriano, | | | 2000 | Encounter | [facility] | MD [address] | | | | | GENERIC OP CONV DEPT | [address] | | | | | [address] | [place], [place] | | | | | [place], [place] | [address] | | | | | [address] | [phone] | | | | | [phone] | | | +--------+ + + + [...] | 08/26/ | Office | Gastroenterology | [facility], | | | 2019 | Visit | | RAJAN [address] | | | | | | [address] | | | | | | [place] | | | | | | [address] | | | | | | | | +--------+---------+ + + + documented as of this encounter Visit Diagnoses Not on filedocumented in this encounter"
--- OUTSIDE RECORDS SUMMARY | ~2019-08-21 | XMS | Encounter Summary ---
Demographics + + + | Address | [address] | | | [place] [address] | + + + | Home Phone | | + + + | Preferred Language | Unknown | + + + | Marital Status | | + + + | Gnosticism Affiliation | 1077 | + + + | Race | Unknown | + + + | Ethnic Group | Unknown | + + + Author + + + | Author | [facility] | | | and Vladislavana | + + + | Organization | [facility] | | | and Vladislavana [...] Team Providers + +------+ + | Care Editing Computer Publisher Name | Role | Phone | + +------+ + PCP | Unavailable | + +------+ + Encounter Details +--------+ + + + + | Date | Type | Department | Care Team | Description | +--------+ + + + + | 01/13/ | Hospital | [facility] | | | | 1992 | Encounter | MED CTR GENERIC IP | | | | | | CONV DEPT [address] | | | | | | [address], | | | | | | [place] [address] | | | | | | [phone] | | | +--------+ + + + [...] | 08/26/ | Office | Gastroenterology | [facility] | | | 2019 | Visit | | RAJAN [address] | | | | | | [address] | | | | | | [place] | | | | | | [id number] | | | | | | | | +--------+---------+ + + + documented as of this encounter Visit Diagnoses Not on filedocumented in this encounter"
--- OUTSIDE RECORDS SUMMARY | ~2019-08-21 | XMS | Encounter Summary ---
Demographics + + + | Address | [address] | | | [place] [address] | + + + | Home Phone | | + + + | Preferred Language | Unknown | + + + | Marital Status | | + + + | Baptist Affiliation | 1077 | + + + | Race | Unknown | + + + | Ethnic Group | Unknown | + + + Author + + + | Author | [facility] | | | and Vladislavana | + + + | Organization | [facility] | | | and [...] Team Providers + +------+ + | Care Pocket Flap Creasing Machine Operator Name | Role | Phone | + +------+ + PCP | Unavailable | + +------+ + Encounter Details +--------+ + + + + | Date | Type | Department | Care Team | Description | +--------+ + + + + | 08/14/ | Hospital | [facility] | | | | 1996 - | Encounter | MED CTR ICU [address] | | | | | | [address], | | | | 08/16/ | | [place] [address] | | | | 1996 | | [phone] | | | +--------+ + + + [...] | 08/26/ | Office | Gastroenterology | [facility] | | | 2019 | Visit | | RAJAN [address] | | | | | | [address] | | | | | | [place] | | | | | | [id number] | | | | | | | | +--------+---------+ + + + documented as of this encounter Visit Diagnoses Not on filedocumented in this encounter"
--- OUTSIDE RECORDS SUMMARY | ~2019-08-21 | XMS | Encounter Summary ---
Demographics + + + | Address | [address] | | | [place] [address] | + + + | Home Phone [...] + | Organization | [facility] | | | and [...] Team Providers + +------+ + | Care Junior Oracle Dba Name | Role | Phone | + +------+ + | Valentine Oh MD | PCP | | + +------+ + Encounter Details +--------+ + + + + | Date | Type | Department | Care Team | Description | +--------+ + + + + | 05/02/ | Hospital | [facility] [address] | Remigio Irizarry | | | 1999 - | Encounter | [facility] | MD Ferderick [address] | | | | | GENERIC OP CONV DEPT | [place] | | | 07/07/ | | [address] | [id number] | | | 1999 | | [place] | | | | | | [address] | | | | | | [phone] | | | +--------+ + + + [...] | 08/26/ | Office | Gastroenterology | [place], | | | 2019 | Visit | | RAJAN [address] | | | | | | [address] | | | | | | [place] | | | | | | [address] | | | | | | | | +--------+---------+ + + + documented as of this encounter Visit Diagnoses Not on filedocumented in this encounter"
--- OUTSIDE RECORDS SUMMARY | ~2019-08-21 | XMS | Clinical Summary ---
Demographics + + + | Address | [address] | | | [place] [address] | + + + | Home Phone | | + + + | Preferred Language | Unknown | + + + | Marital Status | Single | + + + | Restoration Affiliation | Unknown | + + + | Race | White | + + + | Ethnic Group | Not or | + + + Author + + + | Author | [facility] | + + + | Organization | [facility] | + + + | Address | [...] Team Providers + +------+ + | Care Retail Area Manager Name | Role | Phone | + +------+ + | Akilah Phoenix | PCP | | + +------+ + Source Comments RANI is fully live on both EpicCare Ambulatory and EpicCare InPatient.[facility] Allergies + + + + + + | Active Allergy | Reactions | Severity | Noted | Comments | | | | | Date | | + + + + + + | Diphenhydramine Hcl | Unknown | | 02/22/20 | Pt states "hypes | | | | | 15 | me up" | + + + + + + | Morphine | Nausea and Vomiting | High | 05/23/20 | | | | | | 16 | | + + + + + + Medications + + + +---------+------+------+-------+ | Medication | Sig | Dispensed | Refills | Star | End | Statu | | | | | | t | Date | s | | | | | | Date | | | + + + +---------+------+------+-------+ | LEVOTHYROXINE 150 | Take 150 mcg by | | 0 | 01/21 | | Activ | | mcg oral tablet | mouth once daily. | | | 06/11 | | e | | | | | | 15 | | | + + + +---------+------+------+-------+ | BUPROPION XL 150 | Take 150 mg by mouth | | 0 | 05/0 | | Activ | | mg oral tablet | once daily. | | | 620 | | e | | extended release 24 | | | | 15 | | | | hr | | | | | | | + + + +---------+------+------+-------+ | ZOLPIDEM 5 mg oral | | | 0 | 05/2 | | Activ | | tablet | | | | 20 | | e | | | | | | 15 | | | + + + +---------+------+------+-------+ | GABAPENTIN 300 mg | 600 mg once daily. | | 1 | 05/2 | | Activ | | oral capsule | | | | 920 | | e | | | | | | 15 | | | + + + +---------+------+------+-------+ | OMEPRAZOLE 20 mg | Take 20 mg by mouth | | 0 | 03/2 | | Activ | | oral capsule,delayed | once daily at | | | 0/20 | | e | | release(/MILY) | bedtime. | | | 15 | | | + + + +---------+------+------+-------+ | gabapentin 300 mg | Take 1,200 mg by | | 0 | | | Activ | | oral capsule | mouth once daily. | | | | | e | + + + +---------+------+------+-------+ | ESCITALOPRAM | Take by mouth. | | 0 | | | Activ | | OXALATE ORAL | | | | | | e | + + + +---------+------+------+-------+ | loperamide 2 mg | Take 1 capsule by | 120 | 3 | 10/ | | Activ | | oral | mouth four times | capsule | | 06/11 | | e | | capsuleIndications: | daily. Indications: | | | 19 | | | | diarrhea | diarrhea | | | | | | + + + +---------+------+------+-------+ Active Problems Not on file Encounters +--------+ + + + + | Date | Type | Specialty | Care Team | Description | +--------+ + + + + | 08/04/ | Abstract | Gastroenterology | Bogdan Austin, | Medical Records | | 2018 | | | MD | Review | +--------+ + + + + | 08/04/ | MyChart | Gastroenterology | Bogdan Austin, | Loperamide | | 2018 | Encounter | | MD | | +--------+ + + + + | 07/22/ | Abstract | Gastroenterology | Bogdan Austin, | Medical Records | | 2018 | | | MD | Review | +--------+ + + + + | 07/20/ | Office | Gastroenterology | Bogdan Austin, | Chronic abdominal | | 2018 | Visit | | MD | pain (Primary Dx); | | | | | | Chronic diarrhea | +--------+ + + + + | 07/20/ | Travel | | | | | 2018 | | | | | +--------+ + + + + from Last 3 Months Social History + +-------+ +--------+------+ | Tobacco [...] recent travel history available. | + + Last Filed Vital Signs + + + + + | Vital Sign | Reading | Time Taken | Comments | + + + + + | Blood Pressure | 129/77 | 07/20/2019 1:02 PM | | | | | PDT | | + + + + + | Pulse | 77 | 07/20/2019 1:02 PM | | | | | PDT | | + + + + + | Temperature | 37.1 C (98.7 F) | 07/20/2019 1:02 PM | | | | | PDT | | + + + + + | Respiratory Rate | 16 | 07/20/2019 1:02 PM | | | | | PDT | | + + + + + | Oxygen Saturation | 100% | 02/21/2015 4:36 PM | | | | | PDT | | + + + + + | Inhaled Oxygen | - | - | | | Concentration | | | | + + + + + | Weight | 66.5 kg (146 lb 9.6 | 07/20/2019 1:02 PM | | | | oz) | PDT | | + + + + + | Height | 167.6 cm (5' 6") | 07/20/2019 1:02 PM | | | | | PDT | | + + + + + | Body Mass Index | 23.66 | 07/20/2019 1:02 PM | | | | | PDT | | + + + + + Plan of Treatment +--------+---------+ + + + | Date | Type | Specialty | Care Team | Description | +--------+---------+ + + + | 11/22/ | Office | Gastroenterology | AustinBogdan Aline, | | | 2019 | Visit | | [address] | | | | | | [address] | | | | | | [place], [place] | | | | | | [address] | | | | | | [phone] | | | | | | | | +--------+---------+ + + + + + + + + | Health Maintenance | Due Date | Last Done | Comments | + + + + + | Pneumococcal | | 01/22/2017 | | | vaccination (2 of 2 | 5 | | | | - PPSV23) | | | | + + + + + | Influenza (Flu) | | 07/15/2018, 05/26/2017, | | | vaccination (#1) | 9 | 07/02/2016, Additional history | | | | | exists | | + + + + + Results Not on filefrom Last 3 Months Insurance + +--------+ +--------+ + +--------+ | Payer | Benefi | Subscriber | Effect | Phone | Address | Type | | | t Plan | ID | eva | | | | | | / | | Dates | | | | | | Group | | | | | | + +--------+ +--------+ + +--------+ | MEDICARE | MEDICA | xxxxxxxxxxx | 05/23/19 | [phone] | [address] | | | RE A & | | [address] | [address] | [phone] | re | | | B | | sent | | [place] | | | | | | | | [address] | | + +--------+ +--------+ + +--------+ | | CHAMPV | [phone] | Effect | [phone] | | Indemn | | | A | | eva | 7 | | ity | | | | | for | | | | | | | | all | | | | | | | | dates | | | | + +--------+ +--------+ + +--------+ + +--------+ +--------+ + + | Guarantor Name | Accoun | Relation to | Date | Phone | Billing Address | | | t Type | Patient | of | | | | | | | | | | + +--------+ +--------+ + + | Corrina Nixon O | Person | Self | [birth year] | [address] | | | al/Fam | | 1950 | [phone] | [place] [address] | | | johnathan | | | 8 (Home) | | + +--------+ +--------+ + +
--- OUTSIDE RECORDS SUMMARY | ~2019-08-21 | XMS | Encounter Summary ---
Demographics + + + | Address | [address] | | | [place] [address] | + + + | Home Phone | | + + + | Preferred Language | Unknown | + + + | Marital Status | | + + + | Episcopal Affiliation | 1077 | + + + | Race | Unknown | + + + | Ethnic Group | Unknown | + + + Author + + + | Author | [facility] | | | and Vladislavana | + + + | Organization | [facility] | | | and Vladislavana | [...] Providers + +------+ + | Care Residential Construction Instructor Name | Role | Phone | + +------+ + PCP | Unavailable | + +------+ + Encounter Details +--------+ + + + + | Date | Type | Department | Care Team | Description | +--------+ + + + + | 07/08/ | Hospital | [facility] | | | | 1991 | Encounter | MED CTR EMERGENCY | | | | | | CENTER [address] | | | | | | [place] | | | | | | [address] | | | | | | [phone] | | | +--------+ + + + [...] [place] | | | | | | [id number] | | | | | | | | +--------+---------+ + + + documented as of this encounter Visit Diagnoses Not on filedocumented in this encounter"
--- OUTSIDE RECORDS SUMMARY | ~2019-08-21 | XMS | Encounter Summary ---
Demographics + + + | Address | [address] | | | [place] [address] | + + + | Home Phone | | + + + | Preferred Language | Unknown | + + + | Marital Status | | + + + | Baptism Affiliation | 1077 | + + + | Race | Unknown | + + + | Ethnic Group | Unknown | + + + Author + + + | Author | [facility] | | | and Vladislavana | + + + | Organization | [facility] | | | and [...] Team Providers + +------+ + | Care Offshore Wind Turbine Technician Name | Role | Phone | + +------+ + | Valentine Oh MD | PCP | | + +------+ + Encounter Details +--------+ + + + + | Date | Type | Department | Care Team | Description | +--------+ + + + + | 06/02/ | Hospital | [facility] | Adriano, | | | 2001 | Encounter | [facility] | MD [address] | | | | | GENERIC OP CONV DEPT | [address] | | | | | [address] | [place], [place] | | | | | [place], [place] | [address] | | | | | [address] | [phone] | | | | | [phone] | | | +--------+ + + + [...] | 08/26/ | Office | [facility] | [facility] | | | [facility] | Visit | | RAJAN [address] | | | | | | [address] | | | | | | [place] | | | | | | [address] | | | | | | | | +--------+---------+ + + + documented as of this encounter Visit Diagnoses Not on filedocumented in this encounter"
--- OUTSIDE RECORDS SUMMARY | ~2019-08-21 | XMS | Encounter Summary ---
Demographics + + + | Address | [address] | | | [place] [address] | + + + | Home Phone | | + + + | Preferred Language | Unknown | + + + | Marital Status | Single | + + + | Caodaism Affiliation | Unknown | + + + | Race | White | + + + | Ethnic Group | Not or | + + + Author + + + | Author | [facility] | + + + | Organization | [facility] | + + + | Address [...] Team Providers + +------+ + | Care Mock Up Assembler Name | Role | Phone | + +------+ + | Akilah Phoenix | PCP | | + +------+ + Encounter Details +--------+ + + + + | Date | Type | Department | Care Team | Description | +--------+ + + + + | 03/02/ | MyChart | Digestive Health | Jacquelin Matta MD | RE: Results from GI | | 2015 | Encounter | Center at [facility] [address] | [address] | test | | | | [address] | [address] [place], | | | | | Mailcode: [place] | [place] [address] | | | | | for [facility] and | [phone] | | | | | [facility] [address] | | | | | | [place], [place] | | | | | | [address] | | | | | | [phone] | | | +--------+ + + + [...] [address] | | | | | | [place], [place] | | | | | | [address] | | | | | | [phone] | | | | | | | | +--------+---------+ + + + documented as of this encounter Visit Diagnoses Not on filedocumented in this encounter"
--- OUTSIDE RECORDS SUMMARY | ~2019-08-21 | XMS | Encounter Summary ---
Demographics + + + | Address | [address] | | | [place] [address] | + + + | Home Phone | | + + + | Preferred Language | Unknown | + + + | Marital Status | | + + + | Restorationist Affiliation | 1077 | + + + | Race | Unknown | + + + | Ethnic Group | Unknown | + + + Author + + + | Author | [facility] | | | and Vladislavana | + + + | Organization | [facility] | | | and Vladisl[place]ana [...] Team Providers + +------+ + | Care Information Systems Security Developer Name | Role | Phone | + +------+ + PCP | Unavailable | + +------+ + Encounter Details +--------+ + + + + | Date | Type | Department | Care Team | Description | +--------+ + + + + | 03/31/ | Hospital | [facility] | | | | 1992 | Encounter | MED CTR LABORATORY | | | | | | [address] | | | | | | [place] | | | | | | [address] | | | | | | [phone] | | | +--------+ + + + [...] | 08/26/ | Office | Gastroenterology | [facility] | | | 2019 | Visit | | RAJAN [address] | | | | | | [address] | | | | | | [place] | | | | | | [address] | | | | | | | | +--------+---------+ + + + documented as of this encounter Visit Diagnoses Not on filedocumented in this encounter"
--- OUTSIDE RECORDS SUMMARY | ~2019-08-21 | XMS | Encounter Summary ---
Demographics + + + | Address | [address] | | | [place] [address] | + + + | Home Phone | | + + + | Preferred Language | Unknown | + + + | Marital Status | | + + + | Mandaeism Affiliation | 1077 | + + + | Race | Unknown | + + + | Ethnic Group | Unknown | + + + Author + + + | Author | [facility] | | | and Vladislavana | + + + | Organization | [facility] | | | and [...] Team Providers + +------+ + | Care Mine Exploration Engineer Name | Role | Phone | + +------+ + PCP | Unavailable | + +------+ + Encounter Details +--------+ + + + + | Date | Type | Department | Care Team | Description | +--------+ + + + + | 06/11/ | Hospital | [facility] | | | | 1992 | Encounter | MED CTR XRAY [address] | | | | | | [address] | | | | | | [place] [address] | | | | | | [phone] | | | +--------+ + + + [...] | 08/26/ | Office | Gastroenterology | [facility] | | 2019 | Visit | | RAJAN [address] | | | | | | [address] | | | | | | [place] | | | | | | [address] | | | | | | | | +--------+---------+ + + + documented as of this encounter Visit Diagnoses Not on filedocumented in this encounter"
--- OUTSIDE RECORDS SUMMARY | ~2019-08-21 | XMS | Encounter Summary ---
Demographics + + + | Address | [address] | | | [place] [address] | + + + | Home Phone | | + + + | Preferred Language | Unknown | + + + | Marital Status | | + + + | Mu-Ism Affiliation | 1077 | + + + | Race | Unknown | + + + | Ethnic Group | Unknown | + + + Author + + + | Author | [facility] | | | and [place]isl[place] | + + + | Organization | [facility] | | | and Vladisl[place]ana [...] Team Providers + +------+ + | Care Fisher Line Name | Role | Phone | + +------+ + PCP | Unavailable | + +------+ + Encounter Details +--------+ + + + + | Date | Type | Department | Care Team | Description | +--------+ + + + + | 08/16/ | Hospital | [facility] | | | | 1996 - | Encounter | MED CTR GENERIC PSY | | | | | | CONV DEPT [address] | | | | 08/22/ | | [address], | | | | 1996 | | [place] [address] | | | | | | [phone] | | | +--------+ + + + [...] | 08/26/ | Office | Gastroenterology | [facility], | | | 2019 | Visit | | RAJAN [address] | | | | | | [address] | | | | | | [place] | | | | | | [address] | | | | | | | | +--------+---------+ + + + documented as of this encounter Visit Diagnoses Not on filedocumented in this encounter"
--- OUTSIDE RECORDS SUMMARY | ~2019-08-21 | XMS | Encounter Summary ---
Demographics + + + | Address | [address] | | | [place] [address] | + + + | Home Phone | | + + + | Preferred Language | Unknown | + + + | Marital Status | | + + + | Gnosticist Affiliation | 1077 | + + + | Race | Unknown | + + + | Ethnic Group | Unknown | + + + Author + + + | Author | [facility] | | | and Vladislavana | + + + | Organization | [facility] | | | and [place]isl[place] | [...] Team Providers + +------+ + | Care Adjunct Professor Of Voice Name | Role | Phone | + +------+ + | Valentine Oh MD | PCP | | + +------+ + Encounter Details +--------+ + + + + | Date | Type | Department | Care Team | Description | +--------+ + + + + | 08/26/ | Hospital | [facility] | Adriano, | | | 2000 | Encounter | [facility] | MD [address] | | | | | GENERIC OP CONV DEPT | [address] | | | | | [address] | [place], [place] | | | | | [place], [place] | [address] | | | | | [address] | [phone] | | | | | [phone] | | | +--------+ + + + [...] | 08/26/ | Office | [facility]enterology | [facility] | | | 2019 | Visit | | RAJAN [address] | | | | | | [address] | | | | | | [place] | | | | | | [address] | | | | | | | | +--------+---------+ + + + documented as of this encounter Visit Diagnoses Not on filedocumented in this encounter"
--- OUTSIDE RECORDS SUMMARY | ~2019-08-21 | XMS | Encounter Summary ---
Demographics + + + | Address | [address] | | | [place] [address] | + + + | Home Phone | | + + + | Preferred Language | Unknown | + + + | Marital Status | | + + + | Pentecostal Affiliation | 1077 | + + + | Race | Unknown | + + + | Ethnic Group | Unknown | + + + Author + + + | Author | [facility] | | | and Vladislavana | + + + | Organization | [facility] | | | and [place]isl[place]ana [...] Team Providers + +------+ + | Care Website Designer Name | Role | Phone | + +------+ + | Valentine Oh MD | PCP | | + +------+ + Encounter Details +--------+ + + + + | Date | Type | Department | Care Team | Description | +--------+ + + + + | 04/09/ | Hospital | [facility] [address] | Elham Burkett, | | | 1999 - | Encounter | [facility] | MD Mario Jernigan | | | | | GENERIC OP CONV DEPT | [place] [address] | | | 04/10/ | | [address] | [phone] | | | 1999 | | [place] | | | | | | [address] | | | | | | [phone] | | | +--------+ + + + [...] | 08/26/ | Office | [facility]astroenterology | [facility] | | | 2019 | Visit | | RAJAN [address] | | | | | | [address] | | | | | | [place] | | | | | | [address] | | | | | | | | +--------+---------+ + + + documented as of this encounter Visit Diagnoses Not on filedocumented in this encounter"
--- OUTSIDE RECORDS SUMMARY | ~2019-08-21 | XMS | Encounter Summary ---
Demographics + + + | Address | [address] | | | [place] [address] | + + + | Home Phone | | + + + | Preferred Language | Unknown | + + + | Marital Status | | + + + | Buddhist Affiliation | 1077 | + + + | Race | Unknown | + + + | Ethnic Group | Unknown | + + + Author + + + | Author | [facility] | | | and Vladislavana | + + + | Organization | [facility] | | | and [...] Team Providers + +------+ + | Care Legislative Correspondent Name | Role | Phone | + +------+ + PCP | Unavailable | + +------+ + Encounter Details +--------+ + + + + | Date | Type | Department | Care Team | Description | +--------+ + + + + | 11/05/ | Hospital | [facility] | | | | 1993 | Encounter | MED CTR XRAY [address] | | | | | | [address] | | | | | | [place] [address] | | | | | | [phone] | | | +--------+ + + + [...] | 08/26/ | Office | Gastroenterology | [facility] | | 2019 | Visit | | [address] | | | | | | [address] | | | | | | [place] | | | | | | [phone] | | | | | | | | +--------+---------+ + + + documented as of this encounter Visit Diagnoses Not on filedocumented in this encounter"
--- OUTSIDE RECORDS SUMMARY | ~2019-08-21 | XMS | Encounter Summary ---
Demographics + + + | Address | [address] | | | [place] [address] | + + + | Home Phone | | + + + | Preferred Language | Unknown | + + + | Marital Status | | + + + | Congregational Affiliation | 1077 | + + + | Race | Unknown | + + + | Ethnic Group | Unknown | + + + Author + + + | Author | [facility] | | | and Vladislavana | + + + | Organization | [facility] | | | and Vladislavana [...] Team Providers + +------+ + | Care Carbon Grinder Name | Role | Phone | + +------+ + PCP | Unavailable | + +------+ + Encounter Details +--------+ + + + + | Date | Type | Department | Care Team | Description | +--------+ + + + + | 12/23/ | Hospital | [facility] | | | | 1994 | Encounter | MED CTR EMERGENCY | | | | | | CENTER [address] | | | | | | [place] | | | | | | [address] | | | | | | [phone] | | | +--------+ + + + [...] | 08/26/ | Office | Gastroenterology | [facility] | | | 2019 | Visit | | [address] | | | | | | [address] | | | | | | [place] | | | | | | [phone] | | | | | | | | +--------+---------+ + + + documented as of this encounter Visit Diagnoses Not on filedocumented in this encounter"
--- OUTSIDE RECORDS SUMMARY | ~2019-08-21 | XMS | Encounter Summary ---
Demographics + + + | Address | [address] | | | [place] [address] | + + + | Home Phone | | + + + | Preferred Language | Unknown | + + + | Marital Status | | + + + | Yarsani Affiliation | 1077 | + + + | Race | Unknown | + + + | Ethnic Group | Unknown | + + + Author + + + | Author | [facility] | | | and Vladisl[place]ana | + + + | Organization | [facility] | | | and Vladisl[place]ana [...] Team Providers + +------+ + | Care Rivet Sticker Name | Role | Phone | + +------+ + | Valentine Oh MD | PCP | | + +------+ + Encounter Details +--------+ + + + + | Date | Type | Department | Care Team | Description | +--------+ + + + + | 09/23/ | Hospital | [facility] | Huy Daniels MD | | | 2001 | Encounter | [facility] | | | | | | GENERIC OP CONV DEPT | | | | | | [address] | | | | | | [place] | | | | | | [address] | | | | | | [phone] | | | +--------+ + + + [...] | Office | Gastroenterology | [facility], | | | 2019 | Visit | | [address] | | | | | [address] | | | | | | [place] | | | | | | [address] | | | | | | | | +--------+---------+ + + + documented as of this encounter Visit Diagnoses Not on filedocumented in this encounter"
--- OUTSIDE RECORDS SUMMARY | ~2019-08-21 | XMS | Encounter Summary ---
Demographics + + + | Address | [address] | | | [place] [address] | + + + | Home Phone | | + + + | Preferred Language | Unknown | + + + | Marital Status | Single | + + + | Mormon Affiliation | Unknown | + + + | Race | White | + + + | Ethnic Group | Not or | + + + Author + + + | Organization | Unknown | + + + | Address | Unknown | + + + | Phone | Unavailable | + + + Support + + +---------+ + | Name | Relationship | Address | Phone | + + +---------+ + | Devonte Nixon | ECON | Unknown | | + + +---------+ + | Chuy Nixon | ECON | Unknown | | + + +---------+ + Care Team Providers + +------+ + | Care Customer Account Technician Name | Role | Phone | + +------+ + | Akilah Phoenix | PCP | | + +------+ + Encounter Details +--------+--------+ + + + | Date | Type | Department | Care Team | Description | +--------+--------+ + + + | 07/20/ | Travel | | | | | 2018 | | | | | +--------+--------+ + + + Social History + +-------+ [...] [address] | | | | | | [place], [place] | | | | | | [address] | | | | | | [phone] | | | | | | | | +--------+---------+ + + + documented as of this encounter Visit Diagnoses Not on filedocumented in this encounter"
--- OUTSIDE RECORDS SUMMARY | ~2019-08-21 | XMS | Encounter Summary ---
Demographics + + + | Address | [address] | | | [place] [address] | + + + | Home Phone | | + + + | Preferred Language | Unknown | + + + | Marital Status | | + + + | Tenriism Affiliation | 1077 | + + + | Race | Unknown | + + + | Ethnic Group | Unknown | + + + Author + + + | Author | [facility] | | | and [place]isl[place] | + + + | Organization | [facility] | | | and Vladislavana [...] Team Providers + +------+ + | Care Patent Leather Sorter Name | Role | Phone | + +------+ + PCP | Unavailable | + +------+ + Encounter Details +--------+ + + + + | Date | Type | Department | Care Team | Description | +--------+ + + + + | 01/13/ | Hospital | [facility] | | | | 1992 | Encounter | MED CTR GENERIC IP | | | | | | CONV DEPT [address] | | | | | | [address] [place], | | | | | | [place] [address] | | | | | | [phone] | | | +--------+ + + + [...] | 08/26/ | Office | Gastroenterology | [facility] | | | 2019 | Visit | | RAJAN [address] | | | | | | [address] | | | | | | [place] | | | | | | [phone] | | | | | | | | +--------+---------+ + + + documented as of this encounter Visit Diagnoses Not on filedocumented in this encounter"
--- OUTSIDE RECORDS SUMMARY | ~2019-08-21 | XMS | Encounter Summary ---
Demographics + + + | Address | [address] | | | [place] [address] | + + + | Home Phone | | + + + | Preferred Language | Unknown | + + + | Marital Status | | + + + | Methodist Affiliation | 1077 | + + + | Race | Unknown | + + + | Ethnic Group | Unknown | + + + Author + + + | Author | [facility] | | | and Vladislavana | + + + | Organization | [facility] | | | and Vladislavana [...] Team Providers + +------+ + | Care Houseperson Name | Role | Phone | + +------+ + | Hilary Chowdhury PA-C | PCP | | + +------+ + Reason for Visit Auth/Cert +--------+--------+ + + + + | Status | Reason | Specialty | Diagnoses / | Referred By | Referred To | | | | | Procedures | Contact | Contact | +--------+--------+ + + + + | | | | Diagnoses | | Devika, | | | | | Diarrhea, | | Magnus Son, | | | | | unspecified | | [address] | | | | | type | | [address] | | | | | Unintentiona | | [place], | | | | | l weight | | [place] [address] | | | | | loss | | Phone: | | | | | Abdominal | | [phone] | | | | | pain, | | Fax: | | | | | generalized | | [phone] | | | | | Procedures | | | | | | | HI | | | | | | | COLONOSCOPY | | | | | | | FLX DX | | | | | | | W/COLLJ SPEC | | | | | | | WHEN PFRMD | | | | | | | HI | | | | | | | COLONOSCOPY | | | | | | | W/BIOPSY | | | | | | | SINGLE/MULTI | | | | | | | PLE HI | | | | | | | COLSC FLX | | | | | | | W/RMVL OF | | | | | | | TUMOR POLYP | | | | | | | LESION SNARE | | | | | | | TQ | | | | | | | COLONOSCOPY | | | +--------+--------+ + + + + Encounter Details +--------+---------+ + + + | Date | Type | Department | Care Team | Description | +--------+---------+ + + + | 07/05/ | Surgery | [facility] | [facility] | COLONOSCOPY | | 2019 | | [facility] | MD Huy [address] | | | | [address] | [address] [place] | | | | | [place], [place] | [place] [address] | | | | | [address] | [phone] | | | | | [phone] | | | +--------+---------+ + + + [...] Comments | + + +---------+ + | Never | | | | + + +---------+ + + + + + | Alcohol Habits | Answer | Date Recorded | + + + + | How often do you have a drink containing | Never | 05/10/2019 | | alcohol? | | | + + + + | How many drinks containing alcohol do you | Not asked | | | have on a typical day when you are | | | | drinking? | | | + + + + | How often do you have six or more drinks on | Not asked | | | one occasion? | | | + + + + + + + | Sex Assigned [...] + + + | Blood Pressure | 135/65 | 07/05/2019 11:30 AM | | | | | PDT | | + + + + + | Pulse | 67 | 07/05/2019 11:37 AM | | | | | PDT | | + + + + + | Temperature | 36.6 C (97.9 F) | 07/05/2019 9:29 AM | | | | | PDT | | + + + + + | Respiratory Rate | 17 | 07/05/2019 11:00 AM | | | | | PDT | | + + + + + | Oxygen Saturation | 100% | 07/05/2019 11:37 AM | | | | | PDT | | + + + + + | Inhaled Oxygen | - | - | | | Concentration | | | | + + + + + | Weight | 66.3 kg (146 lb 2.6 | 07/05/2019 9:29 AM | | | | oz) | PDT | | + + + + + | Height | 167.6 cm (5' 6") | 07/05/2019 9:29 AM | | | | | PDT | | + + + + + | Body Mass Index | 23.59 | 07/05/2019 9:29 AM | | | | | PDT | | + + + + + documented in this encounter Discharge Instructions Instructions Cassandra Persaud RN - 07/05/2019 Recovery After Procedural Sedation (Adult) You have been given medicine by vein to make you sleep during your procedure. This may have included both a pain medicine and sleeping medicine. Most of the effects have worn off. But you may still have some drowsiness for the next 6 to 8 hours. Home care Follow these guidelines when you get home: For the next 8 hours, you should be watched by a responsible adult. This person should m franco sure your condition is not getting worse. Don't drink any alcoholfor the next [address], operate dangerous machinery,make important business or personal decisions , or sign legal documentsduring the next 24 hours. Note: Your healthcare provider may tell you not to take any medicine by mouth for pain or s leep in the next 4 hours. These medicines may react with the medicines you were given in the hospital. This could cause a much stronger response than usual. Follow-up care Follow up with your healthcare provider if you are not alert and back to your usual level o f activity within 12 hours. When to seek medical advice Call your healthcare provider right away if any of these occur: Drowsiness gets worse Weakness or dizziness gets worse Repeated vomiting You can't be awakened Date Last Reviewed: 07/09/201619996822-5379 [employer]. [address] [place] [address], [place] [address]. All righ ts reserved. This information is not intended as a substitute for professional medical care. Always follow your healthcare professional's instructions. documented in this encounter Medications at Time of Discharge + + + +---------+ + + | Medication | Sig | Dispensed | Refills | Start | End Date | | | | | | Date | | + + + +---------+ + + | albuterol | Inhale 2 puffs into | | 0 | | | | (VENTOLIN HFA) 90 | the lungs every 6 | | | | | | mcg/puff inhaler | hours as needed for | | | | | | | Wheezing. | | | | | + + + +---------+ + + | buPROPion | Take by mouth every | | 0 | 01/26/20 | | | (WELLBUTRIN XL) 150 | morning. | | | 15 | | | mg 24 hr tablet | | | | | | + + + +---------+ + + | colestipol | Take 2 tablets by | 120 | 2 | 06/08/20 | | | (COLESTID) 1 g | mouth 2 times daily. | tablet | | 19 | | | tablet | | | | | | + + + +---------+ + + | escitalopram | Take 20 mg by mouth | | 0 | | | | (LEXAPRO) 10 mg | Daily. | | | | | | tablet | | | | | | + + + +---------+ + + | gabapentin | Take 600 mg by mouth | | 0 | 02/18/20 | | | (NEURONTIN) 300 mg | every morning. | | | 15 | | | capsule | | | | | | + + + +---------+ + + | levothyroxine | | | 0 | 05/17/20 | | | (SYNTHROID) 88 mcg | | | | 19 | | | tablet | | | | | | + + + +---------+ + + | omeprazole | Take 20 mg by mouth | | 0 | 12/10/19 | | | (PRILOSEC) 20 mg | nightly. | | | 15 | | | capsule | | | | | | + + + +---------+ + + | traMADol (ULTRAM) | Take 50 mg by mouth | | 0 | | | | 50 mg tablet | every 6 hours as | | | | | | | needed. | | | | | + + + +---------+ + + | zolpidem (AMBIEN) | Take 5 mg by mouth | | 0 | 02/18/20 | | | 5 mg tablet | nightly as needed. | | | 15 | | + + + +---------+ + + documented as of this encounter Plan of Treatment +--------+---------+ + + + | Date | Type | Specialty | Care Team | Description | +--------+---------+ + + + | 08/26/ | Office | Gastroenterology | [facility], | | | 2018 | Visit | | RAJAN Ramirez [address] | | | | | [address] | | | | | | [place] | | | | | | [address] | | | | | | | | +--------+---------+ + + + documented as of this encounter Procedures + +--------+ + + + | Procedure Name | Priori | Date/Time | Associated Diagnosis | Comments | | | ty | | | | + +--------+ + + + | COLONOSCOPY | | 07/05/2019 | Diarrhea, | | | | | 10:20 AM | unspecified type | | | | | PDT | Unintentional weight | | | | | | loss Abdominal | | | | | | pain, generalized | | + +--------+ + + + | COLONOSCOPY | Routin | 07/05/2019 | | Results for this | | | e | 10:17 AM | | procedure are in the | | | | PDT | | results section. | + +--------+ + + + | SURGICAL PATHOLOGY | Routin | 07/05/2019 | | Results for this | | EXAM | e | 12:00 AM | | procedure are in the | | | | PDT | | results section. | + +--------+ + + + documented in this encounter Results COLONOSCOPY (07/05/2019 10:17 AM PDT) + + | Specimen | + + | | + + + + ----+ | Narrative | Performed At | + + ----+ | | [facility] | | GastroenterologyPatient Name: Corrina Grover Date: | PROVATION | | 07/05/2019 10:17 AMMRN: [id number] #: [id number] of | | | : 1950Admit Type: AmbulatoryAge: 68Room: Endo Room 2Gender: | | | FemaleNote Status: FinalizedAttending MD: MAGNUS SMITH , | | | MDProcedure: ColonoscopyIndications: Chronic | | | diarrhea, Rectal painProviders: MAGNUS SMITH MD, | | | Tova Yuen, OLIVIA, Brisa Olmedo RN, | | | Loni Arambula, Pharmacy Care Coordinator, Tc Soto, TechnicianReferring MD: | | | Hilary Chowdhury (Referring MD), RAJAN Juarez | | | (Referring MD)Medicines: Fentanyl 150 | | | micrograms IV, Midazolam 4 mg IVComplications: No immediate | | | complications.Procedure: Pre-Anesthesia Assessment: - | | | Prior to the procedure, a History and Physical was performed, and | | | patient medications and allergies were reviewed. The patient is | | | competent. The risks and benefits of the procedure and the | | | sedation options and risks were discussed with the patient. All | | | questions were answered and informed consent was obtained. | | | Patient identification and proposed procedure were verified by | | | the physician and the nurse in the pre-procedure area in the | | | procedure room. Mental Status Examination: alert and oriented. | | | Airway Examination: Mallampati Class II (the uvula but not | | | tonsillar pillars visualized). Respiratory Examination: clear to | | | auscultation. CV Examination: normal. Prophylactic Antibiotics: The | | | patient does not require prophylactic antibiotics. Prior | | | Anticoagulants: The patient has taken no previous anticoagulant | | | or antiplatelet agents. ASA Grade Assessment: II - A patient | | | with mild systemic disease. After reviewing the risks and | | | benefits, the patient was deemed in satisfactory condition to | | | undergo the procedure. The anesthesia plan was to use moderate | | | sedation / analgesia (conscious sedation). Immediately prior to | | | administration of medications, the patient was re-assessed for | | | adequacy to receive sedatives. The heart rate, respiratory | | | rate, oxygen saturations, blood pressure, adequacy of pulmonary | | | ventilation, and response to care were monitored throughout | | | the procedure. The physical status of the patient was | | | re-assessed after the procedure. After I obtained informed | | | consent, the scope was passed under direct vision. Throughout | | | the procedure, the patient's blood pressure, pulse, and oxygen | | | saturations were monitored continuously. The Colonoscope was | | | introduced through the anus and advanced to the terminal ileum. The | | | colonoscopy was performed without difficulty. The patient | | | tolerated the procedure well. The quality of the bowel | | | preparation was evaluated using the BBPS ([place] Bowel | | | Preparation Scale) with scores of: Right Colon = 3, Transverse | | | Colon = 3 and Left Colon = 3 (entire mucosa seen well with no | | | residual staining, small fragments of stool or opaque liquid). The | | | total BBPS score equals 9.Findings: The digital rectal exam | | | findings include decreased sphincter tone. There is no | | | noticeable rectal prolapse at this time. The terminal ileum | | | appeared normal. Biopsies were taken with a cold forceps for | | | histology. An area of granular mucosa was found appendiceal | | | orifice. Biopsies were taken with a cold forceps for histology. | | | The transverse colon, ascending colon and cecum appeared | | | normal. Multiple small-mouthed diverticula were found in the | | | sigmoid colon and descending colon. Biopsies for | | | histology were taken with a cold forceps from the right colon | | | and left colon for evaluation of microscopic colitis. A diffuse | | | area of mildly erythematous mucosa was found in the rectum. | | | Biopsies were taken with a cold forceps for histology. | | | Non-bleeding internal hemorrhoids were found during retroflexion. The | | | hemorrhoids were small and Grade I (internal hemorrhoids that | | | do not prolapse).Moderate Sedation: Moderate (conscious) | | | sedation was administered by the endoscopy nurse and supervised | | | by the endoscopist. The patient's oxygen saturation, heart | | | rate, blood pressure and response to care were monitored. Total | | | physician intraservice time was 35 minutes.Impression: - | | | Decreased sphincter tone found on digital rectal exam. No rectal | | | prolapse visible on this examination. - The examined portion | | | of the ileum was normal. Biopsied. - Granularity at the | | | appendiceal orifice. Biopsied. - The transverse colon, ascending | | | colon and cecum are normal. - Diverticulosis in the sigmoid | | | colon and in the descending colon. - Erythematous mucosa (mild) | | | in the rectum. Biopsied. This could be from prep trauma. | | | - Non-bleeding internal hemorrhoids. - Biopsies were taken with | | | a cold forceps from the right colon and left colon for | | | evaluation of microscopic colitis.Recommendation: - Await | | | pathology results. - Repeat colonoscopy in 10 years for | | | screening purposes. - Return to GI clinic. - Resume | | | previous diet.MAGNUS SMTIH MD07/05/2019 11:10:08 AMThis report | | | has been signed electronically.Number of Addenda: 0Note Initiated On: | | | 07/05/2019 10:17 AMScope Withdrawal Time: 0 hours 18 minutes 7 seconds | | | Scope In: 10:33:01 AMScope Out: 11:02:11 AM [facility] | | | [facility], [facility] [place] [address] | | | [phone] | | | - Biopsies were taken with a cold forceps from the right colon and left | | | colon for evaluation of microscopic colitis. | | |Recommendation: | | | - Await pathology results. | | | - Repeat colonoscopy in 10 years for screening purposes. | | | - Return to GI clinic. | | | - Resume previous diet. | | |MAGNUS SMITH MD | | |07/05/2019 11:10:08 AM | | |This report has been signed electronically. | | |Number of Addenda: 0 | | |Note Initiated On: 07/05/2019 10:17 AM | | |Scope Withdrawal Time: 0 hours 18 minutes 7 seconds | | |Scope In: 10:33:01 AM | | |Scope Out: 11:02:11 AM | | | [facility], [address] [facility], [place], [place] | | | [address] | | + + ----+ + +---------+ + + | Performing | Address | City/State/[place] Service Unitcode | Phone Number | | Organization | | | | + +---------+ + + | [facility] | | | | + +---------+ + + Surgical Pathology Exam (07/05/2019 12:00 AM PDT) + + | Specimen | + + | | + + + + + | Narrative | Performed At | + + + | SPECIMEN(S): A APPENDICEAL ORIFICE SPECIMEN(S): B TERMINAL ILEUM | [facility] | | SPECIMEN(S): C RIGHT COLON ASCENDING CECUM TRANSVERSE SPECIMEN(S): D | [facility] | | LEFT COLON DESCENDING SIGMOID, RECTUM SPECIMEN(S): E RECTAL | | | SPECIMEN SOURCE: A. APPENDICEAL ORIFICE B. TERMINAL ILEUM C. RIGHT | | | COLON ASCENDING CECUM TRANSVERSE D. LEFT COLON DESCENDING SIGMOID, | | | RECTUM E. RECTAL CLINICAL HISTORY: R19.7 (diarrhea, | | | unspecified), R63.4 (unintentional weight loss), R10.84 (generalized | | | abdominal pain). Rule out MC MICROSCOPIC DESCRIPTION: Histologic | | | sections of all submitted blocks are examined by light microscopy. | | | These findings, together with the gross examination, support the | | | pathologic diagnosis. FINAL PATHOLOGIC DIAGNOSIS: A. Colon, | | | appendiceal orifice, biopsy: - Fragments of hyperplastic polyp(s). | | | B. Small bowel, terminal ileum, biopsy: - Fragments of small | | | bowel mucosa with no significant diagnostic abnormality. C. Colon, | | | right ascending cecum transverse, biopsy: - Fragments of colonic | | | mucosa with no significant diagnostic abnormality. D. Colon, left | | | descending sigmoid rectum, biopsy: - Fragments of colonic mucosa | | | with no significant diagnostic abnormality. E. Rectal biopsy: - | | | Fragments of colonic mucosa with no significant diagnostic | | | abnormality. CLR:[facility]:C2NR GROSS DESCRIPTION: Five specimens | | | are received in five containers, labeled "MP." A. The specimen, | | | labeled "MP, appendiceal orifice," is received in formalin and | | | consists of a 0.2 cm in greatest dimension irregular hutchinson-white soft | | | tissue fragment. The specimen is entirely submitted in cassette | | | (A1). B. The specimen, labeled "MP, terminal ileum," is received | | | in formalin and consists of a 0.2 cm in greatest dimension irregular | | | hutchinson-white soft tissue fragment. The specimen is entirely submitted | | | in cassette (B1). C. The specimen, labeled "MP, right colon BX: | | | Ascending, cecum, transverse," is received in formalin and consists | | | of five hutchinson-white soft tissue fragments ranging from 0.1-0.3 cm in | | | greatest dimension. The specimen is entirely submitted in cassette | | | (C1). D. The specimen, labeled "MP, left colon: Descending, | | | sigmoid, rectum," is received in formalin and consists of six | | | hutchinson-white soft tissue fragments ranging from your 0.1-0.3 cm in | | | greatest dimension. The specimen is entirely submitted in cassette | | | (D1). E. The specimen, labeled "MP, rectum," is received in | | | formalin and consists of four hutchinson-white soft tissue fragments ranging | | | from 0.1-0.2 cm in greatest dimension. The specimen is entirely | | | submitted in cassette (E1). AR (under the direct supervision of a | | | pathologist) The Gross Description was prepared using a voice | | | recognition system. The report was reviewed for accuracy; however, | | | sound-alike word errors, addition and/or deletions may occur. If | | | there is any question about this report, please contact Client | | | Services. PERFORMING LABORATORY: The technical component was | | | performed by [facility], [address] [place] [address] | | | (Curtain Drier: Lurdes Saul MD; CLIA# [id number]). Professional | | | interpretation was performed by [facility], [facility]. | | | [facility], [address] [place] [address] | | | (Curtain Drier: Thom Bright M.D.; IA#: | | | [id number]). Diagnostician: Thom Bright MD | | | Pathologist Electronically Signed 07/06/2019 | | + + + + +---------+ + + | Performing | Address | City/State/Zipcode | Phone Number | | Organization | | | | + +---------+ + + | [facility] | | | | | [facility] | | | | + +---------+ + + documented in this encounter Visit Diagnoses + + | Diagnosis | + + | Diarrhea, unspecified type | + + | Unintentional weight loss Loss of weight | + + | Abdominal pain, generalized | + + documented in this encounter Admitting Diagnoses + + | Diagnosis | + + | Diarrhea, unspecified type | + + | Unintentional weight loss Loss of weight | + + | Abdominal pain, generalized | + + documented in this encounter Administered Medications + +--------+ +--------+------+------+ | Medication Order | MAR | Action | Dose | Rate | Site | | | Action | Date | | | | + +--------+ +--------+------+------+ | fentaNYL (PF) injection PRN, | Given | 07/05/20 | 25 mcg | | | | Starting 07/05/19 at 1028 | | 19 10:52 | | | | | | | AM PDT | | | | + +--------+ +--------+------+------+ +-------+ +--------+---+---+ | Given | 07/05/20 | 25 mcg | | | | | 19 10:41 | | | | | | AM PDT | | | | +-------+ +--------+---+---+ | Given | 07/05/20 | 25 mcg | | | | | 19 10:32 | | | | | | AM PDT | | | | +-------+ +--------+---+---+ + +---+ | | | + +---+ | lactated ringers (LR) infusion | | | at 100 mL/hr, Intravenous, | | | CONTINUOUS, Starting 07/05/19 | | | at 0915, Pre-op | | + +---+ | | | + +---+ + +-------+ +------+---+---+ | midazolam (VERSED) 5 mg/mL | Given | 07/05/20 | 1 mg | | | | injection PRN, Starting Fri | | 19 10:32 | | | | | 07/05/19 at 1026 | | AM PDT | | | | + +-------+ +------+---+---+ +-------+ +------+---+---+ | Given | 07/05/20 | 1 mg | | | | | 19 10:30 | | | | | | AM PDT | | | | +-------+ +------+---+---+ | Given | 07/05/20 | 2 mg | | | | | 19 10:26 | | | | | | AM PDT | | | | +-------+ +------+---+---+ +---+---+ | | | +---+---+ documented in this encounter
--- OUTSIDE RECORDS SUMMARY | ~2019-08-21 | XMS | Clinical Summary ---
Demographics + + + | Address | [address] | | | [place] [address] | + + + | Home Phone | | + + + | Preferred Language | Unknown | + + + | Marital Status | | + + + | Hindu Affiliation | 1077 | + + + | Race | Unknown | + + + | Ethnic Group | Unknown | + + + Author + + + | Author | [facility] | | | and Vladislavana | + + + | Organization | [facility] | | | and [...] Team Providers + +------+ + | Care Feedmobile Driver Name | Role | Phone | + +------+ + | Hilary Chowdhury PA-C | PCP | | + +------+ + Allergies + + + + + + | Active Allergy | Reactions | Severity | Noted | Comments | | | | | Date | | + + + + + + | Diphenhydramine | Other (See | High | 02/23/20 | Pt states "hypes | | | Comments), Unknown | | 14 | me up" Heart races | | | | | | tachycardia | + + + + + + | Morphine | Nausea And Vomiting | | 05/23/20 | | | | | | 16 | | + + + + + + | Cholestyramine | GI Upset | Medium | 05/10/20 | | | | | | 19 | | + + + + + + Medications + + + +---------+------+------+-------+ | Medication | Sig | Dispensed | Refills | Star | End | Statu | | | | | | t | Date | s | | | | | | Date | | | + + + +---------+------+------+-------+ | buPROPion | Take by mouth every | | 0 | 05/0 | | Activ | | (WELLBUTRIN XL) 150 | morning. | | | 03/11 | | e | | mg 24 hr tablet | | | | 15 | | | + + + +---------+------+------+-------+ | escitalopram | Take 20 mg by mouth | | 0 | | | Activ | | (LEXAPRO) 10 mg | Daily. | | | | | e | | tablet | | | | | | | + + + +---------+------+------+-------+ | gabapentin | Take 600 mg by mouth | | 0 | 05/2 | | Activ | | (NEURONTIN) 300 mg | every morning. | | | 06/11 | | e | | capsule | | | | 15 | | | + + + +---------+------+------+-------+ | omeprazole | Take 20 mg by mouth | | 0 | 03/2 | | Activ | | (PRILOSEC) 20 mg | nightly. | | | 0/20 | | e | | capsule | | | | 15 | | | + + + +---------+------+------+-------+ | zolpidem (AMBIEN) | Take 5 mg by mouth | | 0 | 05/2 | | Activ | | 5 mg tablet | nightly as needed. | | | 9/20 | | e | | | | | | 15 | | | + + + +---------+------+------+-------+ | albuterol | Inhale 2 puffs into | | 0 | | | Activ | | (VENTOLIN HFA) 90 | the lungs every 6 | | | | | e | | mcg/puff inhaler | hours as needed for | | | | | | | | Wheezing. | | | | | | + + + +---------+------+------+-------+ | levothyroxine | | | 0 | 08/2 | | Activ | | (SYNTHROID) 88 mcg | | | | 6/20 | | e | | tablet | | | | 19 | | | + + + +---------+------+------+-------+ | traMADol (ULTRAM) | Take 50 mg by mouth | | 0 | | | Activ | | 50 mg tablet | every 6 hours as | | | | | e | | | needed. | | | | | | + + + +---------+------+------+-------+ | colestipol | Take 2 tablets by | 120 | 2 | 05/23 | | Activ | | (COLESTID) 1 g | mouth 2 times daily. | tablet | | 04/10 | | e | | tablet | | | | 19 | | | + + + +---------+------+------+-------+ Active Problems + + + | Problem | Noted Date | + + + | Diarrhea, unspecified type | 06/30/2019 | + + + + + | Overview: Added automatically from request for surgery | | [id number] | + + + + + | Unintentional weight loss | 06/30/2019 | + + + + + | Overview: Added automatically from request for surgery | | [id number] | + + + + + | Abdominal pain, generalized | 06/30/2019 | + + + + + | Overview: Added automatically from request for surgery | | [id number] | + + + + + | Abdominal bloating | 10/02/2018 | + + + | Acute on chronic cholecystitis | 10/02/2018 | + + + | Upper abdominal pain | 07/26/2018 | + + + | 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 | + + + | Hiatal hernia | 02/06/2016 | + + + | Paraesophageal hernia | 02/06/2016 | + + + | 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 | + + + Encounters +--------+ + + + + | Date | Type | Specialty | Care Team | Description | +--------+ + + + + | 08/05/ | Abstract | Gastroenterology | Provider, | | | 2018 | | | MD Grace | | +--------+ + + + + | 07/06/ | Telephone | Gastroenterology | [facility] | Abdominal Pain | | 2018 | | | MD Huy | | +--------+ + + + + | 07/05/ | Surgery | | [facility] | COLONOSCOPY | | 2018 | | | MD Huy | | +--------+ + + + + | 07/05/ | Hospital | | [facility] | Diarrhea, | | 2018 | Encounter | | MD Huy | unspecified type; | | | | | | Unintentional weight | | | | | | loss; Abdominal | | | | | | pain, generalized | +--------+ + + + + | 06/23/ | Telephone | Gastroenterology | [facility], | LABS | | 2018 | | | RAJAN Ramirez | | +--------+ + + + + | 06/08/ | [facility] | Diarrhea, | | 2018 | Visit | | RAJAN Ramirez | unspecified type | | | | | | (Primary Dx); | | | | | | Unintentional weight | | | | | | loss; Abdominal | | | | | | pain, generalized | +--------+ + + + + from Last 3 Months Family History + + +---------+ + | Medical History | Relation | Name | Comments | + + +---------+ + | Other (see comment) | Maternal | | Malignant neoplastic disease - unsure of | | | Aunt | | type | + + +---------+ + | Diabetes | Mother | | | + + +---------+ + | Heart disease | Mother | | | + + +---------+ + | Cancer | Other | Family | Unspecified type | | | | HX | | + + +---------+ + | Other (see comment) | Paternal | | Malignant neoplastic disease - unsure of | | | Aunt | | type | + + +---------+ + | Stroke | Paternal | | | | | Aunt | | | + + +---------+ + | Stroke | Paternal | | | | | Aunt | | | + + +---------+ + | Diabetes | Sister | | | + + +---------+ + | Heart disease | Sister | | | + + +---------+ + | Hypertension | Sister | | | + + +---------+ + + + + + + | Relation | Name | Status | Comments | + + + + + | Father | | | | + + + + + | Maternal Aunt | | | | + + + + + | Mother | | | | + + + + + | Other | Family HX | Alive | | + + + + + | Paternal Aunt | | | | + + + + + | Paternal Aunt | | | | + + + + + | Sister | | | | + + + + + Social History + [...] | 08/26/ | Office | Gastroenterology | [facility] | | 2019 | Visit | | RAJAN Ramirez [address] | | | | | [address] | | | | | | [place] | | | | | | [id number] | | | | | | | | +--------+---------+ + + + + + + + + | Health Maintenance | Due Date | Last Done | Comments | + + + + + | Hepatitis C | | | | | Screening | 0 | | | + + + + + | Urine Drug Screening | | | | | | 6 | | | + + + + + | Vaccine: | | | | | Dtap/Tdap/Td (1 - | 9 | | | | Tdap) | | | | + + + + + | Breast Cancer | | | | | Screening | 5 | | | + + + + + | Vaccine: | | | | | Pneumococcal 65+ (1 | 5 | | | | of 2 - PCV13) | | | | + + + + + | Vaccine: Zoster (2 | | 01/22/2017 | | | of 3) | 7 | | | + + + + + | Adult Annual | | | | | Wellness Visit | 9 | | | + + + + + | Vaccine: Influenza | | 07/15/2018, 05/26/2017, | | | (#1) | 9 | 07/02/2016, Additional history | | | | | exists | | + + + + + | Colorectal Cancer | | 07/05/2019, 07/05/2019, | | | Screening | 9 | 08/21/2017 | | | (Colonoscopy) | | | | + + + + + Procedures + +--------+ + + + | Procedure Name | Priori | Date/Time | Associated Diagnosis | Comments | | | ty | | | | + +--------+ + + + | LABS - EXTERNAL SCAN | | 07/23/2019 | | Results for this | | | | 12:00 AM | | procedure are in the | | | | PDT | | results section. | + +--------+ + + + | LABS - EXTERNAL SCAN | | 07/23/2019 | | Results for this | | [...] | + +--------+ + + + | EXTERNAL: | Routin | 07/05/2019 | | Results for this | | COLONOSCOPY | e | | | procedure are in the | | | | | | results section. | + +--------+ + + + | LABS - EXTERNAL SCAN | | 06/28/2019 | | Results for this | | | | 12:00 AM | | procedure are in the | | | | PDT | | results section. | + +--------+ + + + | LABS - EXTERNAL SCAN | | 05/28/2019 | | Results for this | | | | 12:00 AM | | procedure are in the | | | | PDT | | results section. | + +--------+ + + + from Last 3 Months Results LABS - EXTERNAL SCAN (07/23/2019 12:00 AM PDT)Only the most recent of 4 results within the time period is included. + + + | Narrative | Performed At | + + + | Ordered by an | | | unspecified provider. | | + + + COLONOSCOPY (07/05/2019 10:17 AM PDT) + + | Specimen | + + | | + + + + ----+ | Narrative | Performed At | + + ----+ | | [facility] | | GastroenterologyPatient Name: Corrina Grover Date: | PROVATION | | 07/05/2019 10:17 AMMRN: [id number] #: [id number] of | | | : 1950Admit Type: AmbulatoryAge: 68Room: Endo Room 2Gender: | | | FemaleNote Status: FinalizedAttending MD: MAGNUS SMITH , | | | MDProcedure: ColonoscopyIndications: Chronic | | | diarrhea, Rectal painProviders: MAGNUS SMITH MD, | | | Tova Yuen RN, Brisa Olmedo RN, | | | Loni Arambula, Gospel Worker, Tc Soto, TechnicianReferring MD: | | | [...] | preparation was evaluated using the BBPS ([place] Bowel | | | Preparation Scale) with [...] - Resume | | | previous diet.MAGNUS SMITH MD07/05/2019 11:10:08 AMThis report | | | has been signed electronically.Number of Addenda: 0Note Initiated On: | | | 07/05/2019 10:17 AMScope Withdrawal Time: 0 hours 18 minutes 7 seconds | | | Scope In: 10:33:01 AMScope Out: 11:02:11 AM [facility] | | | [facility], [address] [place] [address] | | | [phone] | | | - Biopsies were taken [...] |Scope Out: 11:02:11 AM | | | [facility], [address] [place] | | | [address] | | + + ----+ + +---------+ + + | Performing | Address | City/State/Zipcode | Phone Number | | Organization | | | | + +---------+ + + | [facility] | | | | + +---------+ + + EXTERNAL: COLONOSCOPY (07/05/2019) + + + + + + | Component | Value | Ref Range | Performed | Pathologist | | | | | At | Signature | + + + + + + | Colonoscopy | See Full Report~ [facility] | | | | | | Dr. Smith | | | | | Impression, | | | | | | External | | | | | + + + + + + Surgical Pathology Exam (07/05/2019 12:00 [...] significant diagnostic | | | abnormality. CLR:[facility]:C2NR GROSS DESCRIPTION: Five specimens | | | [...] component was | | | performed by [facility] [address] | | | (Silk Screen Frame Assembler: Lurdes Saul MD; CLIA# [id number]). Professional | | | [facility] | | | [address] [address] | | | (Silk Screen Frame Assembler: Thom Bright M.D.; CLIA#: | | | [id number]). Diagnostician: Thom Bright MD | | | Pathologist Electronically Signed 07/06/2019 | | + + + + +---------+ + + | Performing | Address | City/State/Zipcode | Phone Number | | Organization | | | | + +---------+ + + | [facility] | | | | | [facility] | | | | + +---------+ + + from Last 3 Months Insurance + +--------+ +--------+ +---------+--------+ | Payer | Benefi | Subscriber | Effect | Phone | Address | Type | | | t Plan | ID | eva | | | | | | / | | Dates | | | | | | Group | | | | | | + +--------+ +--------+ +---------+--------+ | MEDICARE | MEDICA | [id number] | 05/23/19 | [phone] | | Medica | | | RE | | 99-Pre | 5 | | re | | | PART A | | sent | | | | | | AND B | | | | | | + +--------+ +--------+ +---------+--------+ | | CHAM[employer] | [id number] | 04/29/20 | [phone] | | Indemn | | | A | | 04-Pre | 7 | | ity | | | | | sent | | | | + +--------+ +--------+ +---------+--------+ + +--------+ +--------+ + + | Guarantor Name | Accoun | Relation to | Date | Phone | Billing Address | | | t Type | Patient | of | | | | | | | | | | + +--------+ +--------+ + + | Corrina Nixon | Person | Self | [birth year] | [address] | | | al/Fam | | 1950 | [phone] | [place] [address] | | | johnathan | | | 8 (Home) | | + +--------+ +--------+ + + Advance Directives + + + + + | Type | Date Recorded | Patient | Explanation | | | | Parachute Taper | | + + + + + | Power of | | | | | Chief Mechanical Engineer | | | | + + + + + | Advance | 07/05/2019 | | | | Directive | 7:57 AM | | | + + + + +
--- OUTSIDE RECORDS SUMMARY | ~2019-08-21 | XMS | Encounter Summary ---
Demographics + + + | Address | [address] | | | [place] [address] | + + + | Home Phone | | + + + | Preferred Language | Unknown | + + + | Marital Status | | + + + | Religion Affiliation | 1077 | + + + | Race | Unknown | + + + | Ethnic Group | Unknown | + + + Author + + + | Author | [facility] | | | and Vladislavana | + + + | Organization | [facility] | | | and [...] Team Providers + +------+ + | Care Flexo Press Operator Name | Role | Phone | + +------+ + PCP | Unavailable | + +------+ + Encounter Details +--------+ + + + + | Date | Type | Department | Care Team | Description | +--------+ + + + + | 01/13/ | Hospital | [facility] | | | | 1992 | Encounter | MED CTR GENERIC IP | | | | | | CONV DEPT [address] | | | | | | [address], | | | | | | [place] [id number] | | | | | | [phone] | | | +--------+ + + + [...] | 08/26/ | Office | Gastroenterology | [facility] | | | 2019 | Visit | | RAJAN Ramirez [address] | | | | | [address] | | | | | | [place] | | | | | | [phone] | | | | | | | | +--------+---------+ + + + documented as of this encounter Visit Diagnoses Not on filedocumented in this encounter"
--- OUTSIDE RECORDS SUMMARY | ~2019-08-21 | XMS | Encounter Summary ---
Demographics + + + | Address | [address] | | | [place] [address] | + + + | Home Phone | | + + + | Preferred Language | Unknown | + + + | Marital Status | | + + + | Cheondoism Affiliation | 1077 | + + + | Race | Unknown | + + + | Ethnic Group | Unknown | + + + Author + + + | Author | [facility] | | | and Vladislavana | + + + | Organization | [facility] | | | and [...] Team Providers + +------+ + | Care Computer Trainer Name | Role | Phone | + +------+ + | Hilary Chowdhury PA-C | PCP | | + +------+ + Reason for Visit Evaluate & Treat (Routine) +--------+--------+ + + + + | Status | Reason | Specialty | Diagnoses / | Referred By | Referred To | | | | | Procedures | Contact | Contact | +--------+--------+ + + + + | Closed | | Gastroenterol | Diagnoses | [place] [facility] | | | [facility] | Functional | ANALI Richard | Gastroenterol | | | | | diarrhea | [address] | | | | | Epigastric | [address] | | | | | pain | [address] | [address] [place] | | | | | | [place], | [place], [place] | | | | | | [place] [address] | [address] | | | | | | Phone: | Phone: | | | | | | [phone] | [phone] | | | | | | Fax: | Fax: | | | | | | [phone] | [phone] | +--------+--------+ + + + + Encounter Details +--------+---------+ + + + | Date | Type | Department | Care Team | Description | +--------+---------+ + + + | 06/08/ | Office | [facility] [place] | [place], | Diarrhea, | | 2019 | Visit | GASTROENTEROLOGY | RAJAN Ramirez [address] | unspecified type | | | | [address] [place] | [place] [place] [address] | (Primary Dx); | | | | [address] [place], [place] | [place], [place] | Unintentional weight | | | | [address] | [address] | loss; Abdominal | | | | [phone] | | pain, generalized | +--------+---------+ + + + Social History [...] + + + | Blood Pressure | 100/70 | 06/08/2019 8:43 AM | | | | | PDT | | + + + + + | Pulse | 74 | 06/08/2019 8:43 AM | | | | | PDT | | + + + + + | Temperature | 37.2 C (98.9 F) | 06/08/2019 8:43 AM | | | | | PDT | | + + + + + | Respiratory Rate | 14 | 06/08/2019 8:43 AM | | | | | PDT | | + + + + + | Oxygen Saturation | 99% | 06/08/2019 8:43 AM | | | | | PDT | | + + + + + | Inhaled Oxygen | - | - | | | Concentration | | | | + + + + + | Weight | 67.6 kg (149 lb 0.5 | 06/08/2019 8:43 AM | | | | oz) | PDT | | + + + + + | Height | - | - | | + + + + + | Body Mass Index | 24.8 | 04/13/2019 9:05 AM | | | | | PDT | | + + + + + documented in this encounter Progress Notes Korin Tobias RN - 06/08/2019 9:00 AM PDTScheduled patient for colon IVCS on Friday at [address] Fortune at [facility]. Reviewed surgical history, medications and allergies, reviewed bowel prep instructions, Rx sent to [facility] in [place], [facility] ormation given to patient. Case request submitted. Ashley Mak ARNP - 06/08/2019 9:00 AM PDT PATIENT NAME: Corrina Nixon : 1950: AGE: 68 y.o. REFERRED BY: Hilary Chowdhury PA-C PRIMARY CARE: Hilary Chowdhury PA-C Subjective: CHIEF COMPLAINT: Corrina Nixon is a 68 y.o. female referred by Hilary Chowdhury PA-C for evaluation and tr eatment of diarrhea with weight loss. HISTORY OF PRESENT ILLNESS: Patient notes that following surgery to repair a paraesophageal hernia, she developed diarr hea. She states that she would sit on the toilet up to 5 hours. She was seen by the GI in [facility]. She has also had colonoscopy with Dr Lucas in [facility]. There is a history of eating disorder, but she states that she wants to eat, but eating wor sens diarrhea. She is having about 4 BM per day without eating much. She has lost about 65 l bs since diarrhea started. The worst day she can remember, she had 10-15 stools. She does have abdominal pain across mid abdomen. Describes as sharp that is worse with some touching. Pain improved some with Zofran and resting. She is now feeling like her rectum is large and prolapsing. Records indicate that she has had multiple CTs in the past in addition to 2 colonoscopies, and gastric emptying study. She has tried cholestyramine, loperamide, lomotil, and psyllium. None of these have helped the diarrhea. MEDICAL, SURGICAL, AND PERSONAL HISTORY: BP 100/70 | Pulse 74 | Temp 37.2 C (98.9 F) (Temporal) | Resp 14 | Wt 67.6 kg (149 lb 0.5 oz) | SpO2 99% | BMI 24.80 kg/m Allergies Allergen Reactions Diphenhydramine Other (See Comments) and Unknown Pt states "hypes me up" Heart races tachycardia Questran [Cholestyramine] GI Upset Morphine Nausea And Vomiting Past Medical History: Diagnosis Date Abdominal pain, epigastric Abnormal Hepatic enzymes Acute and chronic Cholecystitis Adverse effect of antiallergic or antiemetic drug, reglan Anemia associated with nutritional deficiency Anorexia nervosa Arthralgia of knee / Patella / Tibia / Fibula Right Arthralgia- Pelvis/ Hip / Femur Right Chronic depression Diarrhea Diverticular disease of colon Dorsalgia of thoracic region Dysphasia Eating disorder Endometrial hyperplasia Esophageal dysmotility Esophageal reflux improved Fatigue Fecal urgency Functional diarrhea Hoarseness Hypernatremia Resolved Hypothyroidism Joint ache Major depression, chronic Muscle ache Nausea and vomiting Painful swallowing Paraesophageal hernia 2015 PTSD (post-traumatic stress disorder) Risk: Angina Sensation of chest tightness Sigmoid diverticulosis Sleep apnea Has BIPap SOB (shortness of breath) on exertion Tremor Uterovaginal prolapse Past Surgical History: Procedure Laterality Date APPENDECTOMY 1969 BACK SURGERY 1979 CATARACT REMOVAL 2013 CHOLECYSTECTOMY 08/27/2018 Dr. Lance LAGOS COLONOSCOPY 08/21/2017 Normal colonoscopy (diverticulosis). COLONOSCOPY Normal except for diverticula, biopsy was negative. 2019 EGD 06/11/2018 PROCEDURE: Good flap valve of [place], no esophagitis, retained food suggestive of gas troparesis. ~Huy Lucas MD EGD 03/21/2017 PO DX: Bile Gastritis ~Chemo Ruby MD [facility] EGD 09/23/2013 No esophagitis, tortuous esophagus, large hiatal hernia ENDOMETRIAL BIOPSY 2019 Negative ENDOSCOPY 01/25/2019 PROCEDURE FINDINGS: No lesion to correspond to CT Scan findings. Suspected the "high jayden er speed: of the CT scan captured a segmental contraction. There were numerous diverticula o f sigmoid and left colon. There was no sign of polyps, colitis, cancer, or other issues. ~Huy Dillon MD ESOPHAGEAL MOTILITY STUDY 02/22/2015 GASTRIC FUNDOPLICATION [place] GASTRIC MOTILITY STUDY 12/29/2017 Gastric emptying study. Normal Study. ~Maverick Ulrich MD [facility] HERNIA REPAIR 01/2016 Laparoscopic repair of paraesophageal hernia, Heller myotomy, Liza gastroplasty, partial fundoplication [facility] NECK SURGERY 1995 UPPER GASTROINTESTINAL ENDOSCOPY 12/11/2016 IMPRESSION: Mildly disordered esophageal motility. Small sliding type hiatal hernia. Moder yky0adtde diverticulum arising from the horizontal portion of the duodenum. ~Ganga Riley [facility] UPPER GASTROINTESTINAL ENDOSCOPY 05/13/2017 Impression: No significant dysmotility seen today. Mild dilation of the distalmost esophag us, from which a small amount of barium refluxed. No hiatal hernia. No reflux fro the stoma ch. At least 3 large duodenal diverticula. Family History Problem Relation Age of Onset Diabetes Mother Heart disease Mother Cancer Other Unspecified type Other (see comment) Maternal Aunt Malignant neoplastic disease - unsure of type Other (see comment) Paternal Aunt Malignant neoplastic disease - unsure of type Stroke Paternal Aunt Hypertension Sister Heart disease Sister Diabetes Sister Stroke Paternal Aunt Social History Socioeconomic History Marital status: Spouse name: Not on file Number of children: Not on file Years of education: Not on file Highest education level: Not on file Social Needs Financial resource strain: Not on file Food insecurity - worry: Not on file Food insecurity - inability: Not on file Transportation needs - medical: Not on file Transportation needs - non-medical: Not on file Occupational History Not on file Tobacco Use Smoking status: Never Smoker Smokeless tobacco: Never Used Substance and Sexual Activity Alcohol use: Never Frequency: Never Drug use: Never Sexual activity: Not Currently Other Topics Concern Not on file Social History Narrative Not on file Review of Systems Constitutional: Positive for unexpected weight change. Negative for diaphoresis, fatigue an d fever. HENT: Positive for tinnitus. Negative for congestion, hearing loss, mouth sores, rhinorrhea and trouble swallowing. Eyes: Negative for redness and visual disturbance. Respiratory: Positive for shortness of breath. Negative for cough, choking, chest tightness and wheezing. Cardiovascular: Positive for chest pain. Negative for palpitations and leg swelling. Gastrointestinal: Positive for abdominal pain and diarrhea. Negative for abdominal distenti on, anal bleeding, blood in stool, constipation, nausea, rectal pain and vomiting. Endocrine: Denies enlarged thyroid Genitourinary: Negative for dysuria, flank pain and frequency. Musculoskeletal: Positive for arthralgias, back pain and joint swelling. Skin: Positive for rash. Negative for color change. Neurological: Positive for weakness, numbness and headaches. Negative for seizures and sync ope. Hematological: Does not bruise/bleed easily. Denies anemia or enlarged lymph glands. Psychiatric/Behavioral: Positive for dysphoric mood. The patient is nervous/anxious. Objective: Physical Exam Constitutional: She is oriented to person, place, and time. She appears well-developed and well-nourished. HENT: Head: Normocephalic and atraumatic. Eyes: EOM are normal. No scleral icterus. Neck: Normal range of motion. Neck supple. Cardiovascular: Normal rate, regular rhythm and normal heart sounds. Pulmonary/Chest: Effort normal and breath sounds normal. No respiratory distress. She has n o wheezes. Abdominal: Soft. Normal appearance and bowel sounds are normal. She exhibits no ascites and no mass. There is no splenomegaly or hepatomegaly. There is no tenderness. There is no rigi dity, no rebound, no guarding and negative Benoit's sign. Musculoskeletal: Normal range of motion. She exhibits no edema or deformity. Neurological: She is alert and oriented to person, place, and time. Skin: Skin is warm and dry. No rash noted. Psychiatric: She has a normal mood and affect. Her behavior is normal. Nursing note and vitals reviewed. Abstract on 05/10/2019 Component Date Value Ref Range Status Path Final Diagnosis A 02/03/2019 Endometrial polyp, biopsy: Simple hyperplasia without atypia with cystic change. Endometrial polyp. Negative for atypia and malignancy. Final Path Final Diagnosis A 01/26/2019 Rectum biopsy: Benign colonic mucosa with slight poly poid features and slight hyperplastic change (two fragments). Negative for significant epith elial atypia. Final Ova + Parasite Exam 01/22/2019 Result #1 02/19/2019 No ova and parasites seen.; (Direct , concentrate, and trichrome performed as indicated.) Final WBC, External 01/25/2019 4.1* 4.5 - 11 Final HGB, External 01/25/2019 13.4 12 - 16 Final HCT, External 01/25/2019 40.9 35 - 45 Final PLT, External 01/25/2019 138* 140 - 440 Final Neutrophils %, External 01/25/2019 62.9 39 - 80 Final Lymphocytes %, External 01/25/2019 27.3 24 - 44 Final Monocytes %, External 01/25/2019 6.8 0 - 12 Final Eosinophils %, External 01/25/2019 2.1 0 - 6 Final RBC, External 01/25/2019 4.47 3.8 - 5.1 Final MCV, External 01/25/2019 92 81 - 99 Final RDW, External 01/25/2019 13.7 10.5 - 15 Final MCH 01/25/2019 30.0 27.0 - 33.0 pg Final MCHC 01/25/2019 33.0 30.0 - 36.0 g/dL Final % Basophils 01/25/2019 0.9 0.0 - 2.0 % Final Anion Gap 01/25/2019 12 7 - 21 mmol/L Final Bun/Creatinine 01/25/2019 15.8 6.0 - 28.6 Ratio Final Albumin/Globulin Ratio 01/25/2019 1.6 1.1 - 2.4 Ratio Final Globulin 01/25/2019 2.8 1.8 - 3.5 g/dl Final Creatinine, External 01/25/2019 0.95 0.7 - 1.25 Final eGFR, External 01/25/2019 58* 60 - 99,999 Final Sodium, External 01/25/2019 141 132 - 143 Final Potassium, External 01/25/2019 3.8 3.6 - 5.1 Final Chloride, External 01/25/2019 104 95 - 112 Final Carbon Dioxide, External 01/25/2019 29 19 - 31 Final Calcium, External 01/25/2019 9.6 8.5 - 10.3 Final Protein, Total, External 01/25/2019 7.3 6 - 8.3 Final Albumin, External 01/25/2019 4.5 3.5 - 5 Final Bilirubin, Total, External 01/25/2019 1.2 0 - 1.2 Final ALP, External 01/25/2019 99 31 - 130 Final AST, External 01/25/2019 18 13 - 39 Final ALT, External 01/25/2019 12 7 - 52 Final Glucose, External 01/25/2019 86 70 - 100 Final BUN, External 01/25/2019 15 6 - 23 Final Path Final Diagnosis A 09/23/2013 MUCOSA,DUODENUM,BIOPSY: No pathologic diagnosis Fin al Path Final Diagnosis B 09/23/2013 MUCOSA, ANTRUM, BIOPSY: Mild chronic gastritis, Immun ostain negative for the presence of Helicobacter. Final Path Final Diagnosis C 09/23/2013 MUCOSA, DISTAL ESOPHAGUS, BIOPSY: Mild chronic esopha gitis with features consistent with reflux. Final Path Final Diagnosis D 09/23/2013 MUCOSA, MID ESOPHAGUS, BIOPSY: No pathologic diagnosi s. Final Assessment: 1. Diarrhea, unspecified type Calprotectin, Stool Fat, Fecal, Qual Pancreatic elastase, fecal Lactoferrin, Fecal, Qual Tissue Transglutaminase (IgA + IgG) CBC with Differential Sedimentation Rate 2. Unintentional weight loss Calprotectin, Stool Fat, Fecal, Qual Pancreatic elastase, fecal Lactoferrin, Fecal, Qual Tissue Transglutaminase (IgA + IgG) CBC with Differential Sedimentation Rate 3. Abdominal pain, generalized Calprotectin, Stool Fat, Fecal, Qual Pancreatic elastase, fecal Lactoferrin, Fecal, Qual Tissue Transglutaminase (IgA + IgG) CBC with Differential Sedimentation Rate Plan: Patient to have colonoscopy for further evaluation. The procedural techniques, risks, indic ations, and alternatives were discussed. Among the risks, are perforation, bleeding, infect ion, allergic/adverse reactions to medications, and cardiovascular complications. Each of t hese could result in hospitalization, additional procedures (including surgery), or other li fe threatening complications. Patient verbalized understanding. Risk factors to colo-rectal cancer discussed with patient including smoking, obesity, excessive red meat ingestion, adv ancing age and first degree family relative with history of colo-rectal cancer discussed wit h patient. Patient to call with any questions or concerns prior to procedure. Discussed that previous colonoscopy did not have random colon biopsied done. Need to determ ine if evidence of microscopic colitis. Labs and stools tests ordered to determine if evidence of celiac disease or pancreatic insu fficiency as a cause for diarrhea. Patient given Colestid tablets. She is to start with 2 tablets twice a day. She can gradu ally increase to a total of 16 g daily if needed. Will follow up with results. Patient is to call with any question or concerns. Any fevers, chills, chest pain, SOB or other serious symptoms patient is to call the office or go to ER . CC: Hilary Chowdhury PA-C This note was dictated using voice recognition software. Please contact me if there are an y questions regarding its content.Electronically signed by RAJAN Juarez at 06/08 12:02 PM PDTdocumented in this encounter Plan of Treatment +--------+---------+ + + + | Date | Type | Specialty | Care Team | Description | +--------+---------+ + + + | 08/26/ | Office | Gastroenterology | [place], | | | 2018 | Visit | | RAJAN Ramirez [address] | | | | | | [address] | | | | | | [place] | | | | | | [address] | | | | | | | | +--------+---------+ + + + + + +--------+ + + | Name | Type | Priori | Associated Diagnoses | Order Schedule | | | | ty | | | + + +--------+ + + | Calprotectin, Stool | Lab | Routin | Diarrhea, | Ordered: 06/08/2019 | | | | e | unspecified type | | | | | | Unintentional weight | | | | | | loss Abdominal | | | | | | pain, generalized | | + + +--------+ + + | Fat, Fecal, Qual | Lab | Routin | Diarrhea, | Ordered: 06/08/2019 | | | | e | unspecified type | | | | | | Unintentional weight | | | | | | loss Abdominal | | | | | | pain, generalized | | + + +--------+ + + | Pancreatic elastase, | Lab | Routin | Diarrhea, | Ordered: 06/08/2019 | | fecal | | e | unspecified type | | | | | | Unintentional weight | | | | | | loss Abdominal | | | | | | pain, generalized | | + + +--------+ + + | Lactoferrin, Fecal, | Microbiolog | Routin | Diarrhea, | 1 Occurrences | | Qual | y | e | unspecified type | starting 06/08/2019 | | | | | Unintentional weight | until 06/08/2020 | | | | | loss Abdominal | | | | | | pain, generalized | | + + +--------+ + + | Tissue | Lab | Routin | Diarrhea, | 1 Occurrences | | Transglutaminase | | e | unspecified type | starting 06/08/2019 | | (IgA + IgG) | | | Unintentional weight | until 06/08/2020 | | | | | loss Abdominal | | | | | | pain, generalized | | + + +--------+ + + | CBC with | Lab | Routin | Diarrhea, | Expected: | | Differential | | e | unspecified type | 06/08/2019, Expires: | | | | | Unintentional weight | 10/06/2019 | | | | | loss Abdominal | | | | | | pain, generalized | | + + +--------+ + + | Sedimentation Rate | Lab | Routin | Diarrhea, | Expected: | | | | e | unspecified type | 06/08/2019, Expires: | | | | | Unintentional weight | 10/06/2019 | | | | | loss Abdominal | | | | | | pain, generalized | | + + +--------+ + + documented as of this encounter [...] + + documented in this encounter Results LABS - EXTERNAL SCAN (05/28/2019 12:00 AM PDT) + + + | Narrative | Performed At | + + + | Ordered by an | | | unspecified provider. | | + + + documented in this encounter Visit Diagnoses + + | Diagnosis | + + | Diarrhea, unspecified type - Primary | + + | Unintentional weight loss Loss of weight | + + | Abdominal pain, generalized | + + documented in this encounter
--- OUTSIDE RECORDS SUMMARY | ~2019-08-21 | XMS | Encounter Summary ---
Demographics + + + | Address | [address] | | | [place] [address] | + + + | Home Phone | | + + + | Preferred Language | Unknown | + + + | Marital Status | | + + + | Orthodoxy Affiliation | 1077 | + + + | Race | Unknown | + + + | Ethnic Group | Unknown | + + + Author + + + | Author | [facility] | | | and Vladislavana | + + + | Organization | [facility] | | | and [...] Team Providers + +------+ + | Care Dietitian Teacher Name | Role | Phone | + [...] | | l weight | | [place] [address] | | | | | loss | | Phone: | | | | | Abdominal | | [phone] | | | | | pain, | | Fax: | | | | | generalized | | [phone] | | | | | Procedures | | | | | | | DE | | | | | | | COLONOSCOPY | | | | | | | FLX DX | | | | | | | W/COLLJ SPEC | | | | | | | WHEN PFRMD | | | | | | | DE | | | | | | | COLONOSCOPY | | | | | | | W/BIOPSY | | | | | | | SINGLE/MULTI | | | | | | | PLE DE | | | | | | | [...] | Surgery | [facility] | [facility] | COLONOSCOPY | | 2019 | | [facility] | MD Huy [address] | | | | | [address] | [address] [place] | | | | | [place], [place] | [place] [address] | | | | | [address] | [phone] | | | | | [phone] | | | +--------+---------+ + + + [...] You can't be awakened Date Last Reviewed: 07/09/[id number] [employer]. [address] [place] [address], [place] [address]. All righ ts reserved. This information is [...] | 08/26/ | Office | Gastroenterology | [facility], | | | 2018 | Visit | | RAJAN Ramirez [address] | | | | | | [address] | | | | | | [place] | | | | | | [address] | | | | | | | [...] | PROVATION | | 07/05/2019 10:17 AMMRN: [id number] #: [id number] of | | | : 1950Admit Type: AmbulatoryAge: 68Room: Endo Room 2Gender: | | | FemaleNote Status: FinalizedAttending MD: MAGNUS SMITH , | | | MDProcedure: ColonoscopyIndications: Chronic | | | diarrhea, Rectal painProviders: MAGNUS SMITH MD, | | | Tova Yuen, OLIVIA, Brisa Olmedo RN, | | | Loni Arambula, Experimental Welder, Tc Soto, TechnicianReferring MD: | | | [...] | preparation was evaluated using the BBPS ([place] Bowel | | | Preparation Scale) with [...] Scope In: 10:33:01 AMScope Out: 11:02:11 AM [facility] | | | [facility], [facility] [place] [address] | | | [phone] | | | - Biopsies were taken [...] |Scope Out: 11:02:11 AM | | | [facility], [address], [place], [place] | | | [address] | | + + ----+ + +---------+ + + | Performing | Address | City/State/[facility] Medical Centercode | Phone Number | | Organization | [...] no significant diagnostic | | | abnormality. CLR:[place]:C2NR GROSS DESCRIPTION: Five specimens | | | [...] component was | | | performed by [facility], [address] [place] [id number] | | | (Automobile Leasing Supervisor: Lurdes Saul MD; CLIA# [id number]). Professional | | | interpretation was performed by [facility], [facility]. | | | [facility], [address] [place] [address] | | | (Automobile Leasing Supervisor: Thom Bright M.D.; IA#: | | | [id number]). Diagnostician: Thom Bright MD | | | [...]
--- OUTSIDE RECORDS SUMMARY | ~2019-08-21 | XMS | Encounter Summary ---
Demographics + + + | Address | [address] | | | [place] [address] | + + + | Home Phone | | + + + | Preferred Language | Unknown | + + + | Marital Status | | + + + | Amish Affiliation | 1077 | + + + | Race | Unknown | + + + | Ethnic Group | Unknown | + + + Author + + + | Author | [facility] | | | and Vladislavana | + + + | Organization | [facility] | | | and [...] Team Providers + +------+ + | Care Burling And Joining Supervisor Name | Role | Phone | + +------+ + PCP | Unavailable | + +------+ + Encounter Details +--------+ + + + + | Date | Type | Department | Care Team | Description | +--------+ + + + + | 05/10/ | Hospital | [facility] | | | | 1992 | Encounter | [facility] | | | | | | CENTER [address] | | | | | | [place] | | | | | | [address] | | | | | | [phone] | | | +--------+ + + + [...] | 08/26/ | Office | Gastroenterology | [facility] | | | 2019 | Visit | | RAJAN Ramirez [address] | | | | | | [address] [place] [address] | | | | | | [place] | | | | | | [id number] | | | | | | | | +--------+---------+ + + + documented as of this encounter Visit Diagnoses Not on filedocumented in this encounter"
--- OUTSIDE RECORDS SUMMARY | ~2019-08-21 | XMS | Encounter Summary ---
Demographics + + + | Address | [address] | | | [place] [address] | + + + | Home Phone | | + + + | Preferred Language | Unknown | + + + | Marital Status | Single | + + + | Jainism Affiliation | Unknown | + + + | Race | White | + + + | Ethnic Group | Not or | + + + Author + + + | Author | [facility] | + + + | Organization | [facility] | + + + | Address [...] Team Providers + +------+ + | Care Bet Taker Name | Role | Phone | + [...] | Dysphagia | MD Jacquelin | [address] | | | | | Procedures | [address] | [address] | | | | | CONSULT TO | [address] | [address] | | | | | GI PROCEDURE | [address] | Mailcode: | | | | | UNIT: | [place], [place] | [address] | | | | | ESOPHAGEAL | [address] | [place] | | | | | MANOMETRY | Phone: | [address] | | | | | | [phone] | [place], | | | | | | Fax: | [place] [address] | | | | | | [phone] | Phone: | | | | | | | [phone] | | | | | | | Fax: | | | | | | | [phone] | +--------+--------+ + + + + Reason [...] | | | | | | [place] [address] | Healing, | | | | | | Phone: | [facility] | | | | | | [phone] | [place], [place] | | | | | | Fax: | [address] | | | | | | [phone] | Phone: | | | | | | | [phone] | | | | | | | Fax: | | | | | | | [phone] | +--------+--------+ + + + + Encounter [...] | | RON Lee | [address] [place], | Gastroesophageal | | | | Mailcode: [place] | [place] [address] | reflux disease with | | | | for Health and | [phone] | esophagitis; Hiatal | | | | Healing, [address] | | hernia with | | | | [place], [place] | | gastroesophageal | | | | [address] | | reflux | | | | [phone] | | | +--------+---------+ + + + [...] patient o n 02/21/15 and affirmed the ujlien elements of the history and performed the [...] hernia, has been seeing Dr. Lucas in [place] who is planning magda stiven to fix [...] of colon cancer SOCIAL HISTORY Lives in [facility] No tobacco No etoh No drugs REVIEW [...] | 2019 | Visit | | [address] | | | | | | [facility] | | | | | | [place], [place] | | | | | | [address] | | | | | | [phone] | | | | | | | [...]
--- OUTSIDE RECORDS SUMMARY | ~2019-08-21 | XMS | Encounter Summary ---
Demographics + + + | Address | [address] | | | [place] [address] | + + + | Home Phone | | + + + | Preferred Language | Unknown | + + + | Marital Status | | + + + | Spiritism Affiliation | 1077 | + + + | Race | Unknown | + + + | Ethnic Group | Unknown | + + + Author + + + | Author | [facility] | | | and [place] | + + + | Organization | [facility] | | | and [place] | [...] Team Providers + +------+ + | Care Electrician Substation Name | Role | Phone | + +------+ + PCP | Unavailable | + +------+ + Encounter Details +--------+ + + + + | Date | Type | Department | Care Team | Description | +--------+ + + + + | 06/20/ | Hospital | [facility] | | | | 1992 | Encounter | MED CTR LABORATORY | | | | | | [address] | | | | | | [place] | | | | | | [address] | | | | | | [phone] | | | +--------+ + + + [...] 08/26/ | Office | Gastroenterology | [facility] | | | 2019 | Visit | | RAJAN Ramirez [address] | | | | | | [address] | | | | | | [place] | | | | | | [address] | | | | | | | | +--------+---------+ + + + documented as of this encounter Visit Diagnoses Not on filedocumented in this encounter"
--- OUTSIDE RECORDS SUMMARY | ~2019-08-21 | XMS | Encounter Summary ---
Demographics + + + | Address | [address] | | | [place] [address] | + + + | Home Phone | | + + + | Preferred Language | Unknown | + + + | Marital Status | | + + + | Mandaen Affiliation | 1077 | + + + | Race | Unknown | + + + | Ethnic Group | Unknown | + + + Author + + + | Author | [facility] | | | and [place] | + + + | Organization | [facility] | | [...] Team Providers + +------+ + | Care Store Facility Technician Name | Role | Phone | + +------+ + | Valentine Oh MD | PCP | | + +------+ + Encounter Details +--------+ + + + + | Date | Type | Department | Care Team | Description | +--------+ + + + + | 01/23/ | [facility] | [facility] | Jose Borrego MD | | | 2008 | Encounter | MED CTR GENERIC OP | [address] | | | | | CONV DEPT [address] | [address] [place] | | | | | [address] [place], | [address] | | | | | [place] [address] | | | | | | [phone] | | | +--------+ + + + [...] [place] | | | | | | [address] | | | | | | | | +--------+---------+ + + + documented as of this encounter Visit Diagnoses Not on filedocumented in this encounter"
--- OUTSIDE RECORDS SUMMARY | ~2019-08-21 | XMS | Encounter Summary ---
Demographics + + + | Address | [address] | | | [place] [address] | + + + | Home Phone | | + + + | Preferred Language | Unknown | + + + | Marital Status | | + + + | Restorationism Affiliation | 1077 | + + + | Race | Unknown | + + + | Ethnic Group | Unknown | + + + Author + + + | Author | [facility] | | | and [place] | + + + | Organization | [facility] | | | and [...] Team Providers + +------+ + | Care Grades 6 Through 8 Teacher Name | Role | Phone | + +------+ + PCP | Unavailable | + +------+ + Encounter Details +--------+ + + + + | Date | Type | Department | Care Team | Description | +--------+ + + + + | 09/12/ | Hospital | [facility] | | | | 1996 | Encounter | MED CTR LABORATORY | | | | | | [address] | | | | | | [place] | | | | | | [address] | | | | | | [phone] | | | +--------+ + + + [...] | 08/26/ | Office | Gastroenterology | [facility] | | | 2019 | Visit | | RAJAN Ramirez [address] | | | | | | [address] | | | | | | [place] | | | | | | [address] | | | | | | | | +--------+---------+ + + + documented as of this encounter Visit Diagnoses Not on filedocumented in this encounter"
--- OUTSIDE RECORDS SUMMARY | ~2019-08-21 | XMS | Encounter Summary ---
Demographics + + + | Address | [address] | | | [place] [address] | + + + | Home Phone | | + + + | Preferred Language | Unknown | + + + | Marital Status | | + + + | Presybeterian Affiliation | 1077 | + + + | Race | Unknown | + + + | Ethnic Group | Unknown | + + + Author + + + | Author | [facility] | | | and [place] | + + + | Organization | [facility] | | | and [place] | [...] Team Providers + +------+ + | Care Medical Laboratory Specialist Name | Role | Phone | + +------+ + | Valentine Oh MD | PCP | | + +------+ + Encounter Details +--------+ + + + + | Date | Type | Department | Care Team | Description | +--------+ + + + + | 01/13/ | Hospital | [facility] | Adriano, | | | 2001 - | Encounter | [facility] | MD [address] | | | | | GENERIC OP CONV DEPT | [address] | | | 01/14/ | | [address] | [place] | | | 2001 | | [place] | [address] | | | | | [address] | [phone] | | | | | [phone] | | | +--------+ + + + [...] | 08/26/ | Office | Gastroenterology | [facility], | | | 2019 | Visit | | Ashley, CAISSON WORKER [address] | | | | | | [address] | | | | | | [place] | | | | | | [address] | | | | | | | | +--------+---------+ + + + documented as of this encounter Visit Diagnoses Not on filedocumented in this encounter"
--- OUTSIDE RECORDS SUMMARY | ~2019-08-21 | XMS | Encounter Summary ---
Demographics + + + | Address | [address] | | | [place] [address] | + + + | Home Phone | | + + + | Preferred Language | Unknown | + + + | Marital Status | | + + + | Evangelical Affiliation | 1077 | + + + | Race | Unknown | + + + | Ethnic Group | Unknown | + + + Author + + + | Author | [facility] | | | and [place] | + + + | Organization | [facility] [...] Team Providers + +------+ + | Care Masonry Contractor Name | Role | Phone | + +------+ + PCP | Unavailable | + +------+ + Encounter Details +--------+ + + + + | Date | Type | Department | Care Team | Description | +--------+ + + + + | 09/27/ | Hospital | [facility] | | | | 1993 - | Encounter | MED CTR GENERIC PSY | | | | | | CONV DEPT [address] | | | | 10/24/ | | [address] [place], | | | | 1993 | | [place] [address] | | | | | | [phone] | | | +--------+ + + + [...] | 08/26/ | Office | Gastroenterology | [facility], | | | 2019 | Visit | | RAJAN [address] | | | | | | [address] | | | | | | [place] | | | | | | [address] | | | | | | | | +--------+---------+ + + + documented as of this encounter Visit Diagnoses Not on filedocumented in this encounter"
--- OUTSIDE RECORDS SUMMARY | ~2019-08-21 | XMS | Encounter Summary ---
Demographics + + + | Address | [address] | | | [place] [address] | + + + | Home Phone | | + + + | Preferred Language | Unknown | + + + | Marital Status | | + + + | Mormon Affiliation | 1077 | + + + | Race | Unknown | + + + | Ethnic Group | Unknown | + + + Author + + + | Author | [facility] | | | and [place] | + + + | Organization | [facility] | | | [...] Team Providers + +------+ + | Care Photograph Mounter Name | Role | Phone | + +------+ + | Hilary Chowdhury PA-C | PCP | | + +------+ + Reason for Visit + + + | Reason | Comments | + + + | Abdominal Pain | | + + + Encounter Details +--------+ + + + + | Date | Type | Department | Care Team | Description | +--------+ + + + + | 07/06/ | Telephone | [facility] [place] | Magnus Fortune | Abdominal Pain | | 2019 | | GASTROENTEROLOGY | MD Huy [address] | | | | | [address] | [address] [place] | | | | | [address] [place], [place] | [place] [address] | | | | | [address] | [phone] | | | | | [phone] | | | +--------+ + + + [...] | 08/26/ | Office | Gastroenterology | [facility], | | | 2019 | Visit | | RAJAN Ramirez [address] | | | | | | [address] | | | | | | [place] | | | | | | [address] | | | | | | | | +--------+---------+ + + + + +---------+--------+ + + | Name | Type | Priori | Associated Diagnoses | Order Schedule | | | | ty | | | + +---------+--------+ + + | XR Abdomen Supine | Imaging | Routin | Abdominal pain, | Expected: 07/06/2019 | | and Upright | | e | generalized | (Approximate), | | | | | | Expires: 07/06/2020 | + +---------+--------+ + + documented as of this encounter Visit Diagnoses + + | Diagnosis | + + | Abdominal pain, generalized - Primary | + + documented in this encounter"
--- OUTSIDE RECORDS SUMMARY | ~2019-08-21 | XMS | Encounter Summary ---
Demographics + + + | Address | [address] | | | [place] [address] | + + + | Home Phone | | + + + | Preferred Language | Unknown | + + + | Marital Status | | + + + | Hinduism Affiliation | 1077 | + + + | Race | Unknown | + + + | Ethnic Group | Unknown | + + + Author + + + | Author | [facility] | | | and [place] | + + + | Organization | [facility] | | | and [...] Team Providers + +------+ + | Care Traffic Attendant Name | Role | Phone | + +------+ + | Valentine Oh MD | PCP | | + +------+ + Encounter Details +--------+ + + + + | Date | Type | Department | Care Team | Description | +--------+ + + + + | 05/02/ | Hospital | [facility] | Remigio Irizarry | | | 1999 - | Encounter | [facility] | MD Frederick [address] | | | | | GENERIC OP CONV DEPT | [place] | | | 07/07/ | | [address] | [id number] | | | 1999 | | [place] | | | | | | [address] | | | | | | [phone] | | | +--------+ + + + [...] [place] | | | | | | [address] | | | | | | | | +--------+---------+ + + + documented as of this encounter Visit Diagnoses Not on filedocumented in this encounter"
--- OUTSIDE RECORDS SUMMARY | ~2019-08-21 | XMS | Encounter Summary ---
Demographics + + + | Address | [address] | | | [place] [address] | + + + | Home Phone | | + + + | Preferred Language | Unknown | + + + | Marital Status | | + + + | Yazidi Affiliation | 1077 | + + + | Race | Unknown | + + + | Ethnic Group | Unknown | + + + Author + + + | Author | [facility] | | | and [place] | + + + | Organization | [facility] [...] Team Providers + +------+ + | Care Care Mgr Name | Role | Phone | + [...] | Epigastric | [address] | | | | | pain | [address] | [address] [place] | | | | | | [place], | [place], [place] | | | | | | [place] [address] | [address] | | | | | | Phone: | Phone: | | | | | | [phone] | [phone] | | | | | | Fax: | Fax: | | | | | | [phone] | [phone] | +--------+--------+ + + + + Encounter [...] | [address] | [place], [address] | (Primary Dx); | | | | [address] [place], [place] | [place], [place] | Unintentional weight | | | | [address] | [address] | loss; Abdominal | | | | [phone] | | pain, generalized | +--------+---------+ + [...] [address] Fortune at [facility]. Reviewed surgical history, medications and allergies, reviewed bowel prep instructions, Rx sent to [facility] in [place], [facility] ormation given to patient. Case request submitted. [...] She was seen by the GI in [facility]. She has also had colonoscopy with Dr Lucas in [facility]. There is a history of eating [...] DX: Bile Gastritis ~Chemo Ruby MD OPH [facility] EGD 09/23/2013 No esophagitis, tortuous esophagus, large [...] MD ESOPHAGEAL MOTILITY STUDY 02/22/2015 GASTRIC FUNDOPLICATION [place] GASTRIC MOTILITY STUDY 12/29/2017 Gastric emptying study. Normal Study. ~Maverick Ulrich MD [facility] HERNIA REPAIR 01/2016 Laparoscopic repair of paraesophageal hernia, Heller myotomy, Liza gastroplasty, partial fundoplication [facility] Mcl[facility] NECK SURGERY 1995 UPPER GASTROINTESTINAL ENDOSCOPY 12/11/2016 IMPRESSION: Mildly disordered esophageal motility. Small sliding type hiatal hernia. 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 ~Ganga Riley [facility] UPPER GASTROINTESTINAL ENDOSCOPY 05/13/2017 Impression: No significant [...] | | | | | [place] | | | | | | [address] | | | | | | | [...]
--- OUTSIDE RECORDS SUMMARY | ~2019-08-21 | XMS | Encounter Summary ---
Demographics + + + | Address | [address] | | | [place] [address] | + + + | Home Phone | | + + + | Preferred Language | Unknown | + + + | Marital Status | | + + + | Shinto Affiliation | 1077 | + + + | Race | Unknown | + + + | Ethnic Group | Unknown | + + + Author + + + | Author | [facility] | | | and [place] | + + + | Organization | [facility] | | | and [...] Team Providers + +------+ + | Care Claims Configuration Analyst Name | Role | Phone | + +------+ + PCP | Unavailable | + +------+ + Encounter Details +--------+ + + + + | Date | Type | Department | Care Team | Description | +--------+ + + + + | 05/10/ | Hospital | [facility] | | | | 1992 | Encounter | MED CTR EMERGENCY | | | | | | CENTER [address] | | | | | | [place] | | | | | | [address] | | | | | | [phone] | | | +--------+ + + + [...] | 08/26/ | Office | Gastroenterology | [facility] | | | 2019 | Visit | | RAJAN Ramirez [address] | | | | | | [address] | | | | | | [place] | | | | | | [address] | | | | | | | | +--------+---------+ + + + documented as of this encounter Visit Diagnoses Not on filedocumented in this encounter"
--- OUTSIDE RECORDS SUMMARY | ~2019-08-21 | XMS | Encounter Summary ---
Demographics + + + | Address | [address] | | | [place] [address] | + + + | Home Phone | | + + + | Preferred Language | Unknown | + + + | Marital Status | Single | + + + | Congregation Affiliation | Unknown | + + + | Race | White | + + + | Ethnic Group | Not or | + + + Author + + + | Author | [facility] | + + + | Organization | [facility] | + + + | Address [...] Team Providers + +------+ + | Care Respiratory Care Program Director Name | Role | Phone | + +------+ + | Akilah Phoenix | PCP | | + +------+ + Reason for Visit + + + | Reason | Comments | + + + | Medical Records | | | Review | | + + + Encounter Details +--------+ + + + + | Date | Type | Department | Care Team | Description | +--------+ + + + + | 07/22/ | Abstract | Digestive Health | [place], | Medical Records | | 2019 | | Center at [facility] [address] | MD [address] | Review | | | | RON [address] | [facility] | | | | | Mailcode: Center | [place], [place] | | | | | [facility] and | [address] | | | | | [facility] | [phone] | | | | | [place], [place] | | | | | | [address] | | | | | | [phone] | | | +--------+ + + + [...] | | 2019 | Visit | | [address] | | | | | | [place] | | | | | | [place], [place] | | | | | | [address] | | | | | | [phone] | | | | | | | | +--------+---------+ + + + documented as of this encounter Visit Diagnoses Not on filedocumented in this encounter"
--- OUTSIDE RECORDS SUMMARY | ~2019-08-21 | XMS | Encounter Summary ---
Demographics + + + | Address | [address] | | | [place] [address] | + + + | Home Phone | | + + + | Preferred Language | Unknown | + + + | Marital Status | | + + + | Uatsdin Affiliation | 1077 | + + + | Race | Unknown | + + + | Ethnic Group | Unknown | + + + Author + + + | Author | [facility] | | | and [place]isl[place] | + + + | Organization | [facility] | | | and [...] Team Providers + +------+ + | Care Fire Lieutenant Name | Role | Phone | + +------+ + PCP | Unavailable | + +------+ + Encounter Details +--------+ + + + + | Date | Type | Department | Care Team | Description | +--------+ + + + + | 02/05/ | Hospital | [facility] | | | | 1997 - | Encounter | MED CTR GENERIC PSY | | | | | | CONV DEPT [address] | | | | 02/09/ | | [address], | | | | 1997 | | [place] [address] | | | | | | [phone] | | | +--------+ + + + [...] 08/26/ | Office | Gastroenterology | [facility], | | | 2019 | Visit | | RAJAN [address] | | | | | | [address] | | | | | | [place] | | | | | | [address] | | | | | | | | +--------+---------+ + + + documented as of this encounter Visit Diagnoses Not on filedocumented in this encounter"
--- OUTSIDE RECORDS SUMMARY | ~2019-08-21 | XMS | Encounter Summary ---
Demographics + + + | Address | [address] | | | [place] [address] | + + + | Home Phone [...] + | Organization | [facility] | | | and [place]isl[place] | [...] Team Providers + +------+ + | Care Container Washer Name | Role | Phone | + +------+ + | Valentine Oh MD | PCP | | + +------+ + Encounter Details +--------+ + + + + | Date | Type | Department | Care Team | Description | +--------+ + + + + | 04/17/ | Hospital | [facility] | Huy Daniels MD | | | 1999 - | Encounter | [facility] | Rafael Valladares, | | | | | GENERIC OP CONV DEPT | [address] | | | 05/12/ | | [address] | [place] | | | 1999 | | [place] | [address] | | | | | [address] | | | | | | [phone] | | | +--------+ + + + [...] | 08/26/ | Office | Gastroenterology | [facility], | | | 2019 | Visit | | RAJAN [address] | | | | | | [address] | | | | | | [place] | | | | | | [address] | | | | | | | | +--------+---------+ + + + documented as of this encounter Visit Diagnoses Not on filedocumented in this encounter"
--- OUTSIDE RECORDS SUMMARY | ~2019-08-21 | XMS | Clinical Summary ---
Demographics + + + | Address | [address] | | | [place] [address] | + + + | Home Phone | | + + + | Preferred Language | Unknown | + + + | Marital Status | Single | + + + | Zoroastrian Affiliation | Unknown | + + + [...] Team Providers + +------+ + | Care Director Talent Name | Role | Phone | + +------+ + | Akilah Phoenix | PCP | | + +------+ + Source Comments RANI is fully live on both EpicCare Ambulatory and EpicCare InPatient.[facility] Allergies + + + + + + [...] [address] | | | | | | [place], [place] | | | | | | [address] | | | | | | [phone] | | | | | | | [...] | MEDICA | xxxxxxxxxxx | 05/23/19 | [phone] | [address] | [employer] | | | RE A & | | [address] | [address] | [address] | re | | | B | | sent | | [place] | | | | | | | | [address] | | + +--------+ +--------+ + +--------+ [...] | 1950 | [phone] | [place] [address] | | | johnathan | | | 8 (Home) | | + +--------+ +--------+ + +
--- OUTSIDE RECORDS SUMMARY | ~2019-08-21 | XMS | Encounter Summary ---
Demographics + + + | Address | [address] | | | [place] [address] | + + + | Home Phone [...] Author + + + | Author | [facility] | + + + | Organization | [facility] | + + + | Address | [...] Team Providers + +------+ + | Care Development Lead Name | Role | Phone | + +------+ + | Akilah Phoenxi | PCP | | + +------+ + Encounter Details +--------+ + + + + | Date | Type | Department | Care Team | Description | +--------+ + + + + | 03/02/ | MyChart | Digestive Health | Jacquelin Matta MD | RE: Results from GI | | 2015 | Encounter | Center at [facility] [address] | [address] | test | | | | [address] | [address] [place], | | | | | Mailcode: [place] | [place] [address] | | | | | for [facility] and | [phone] | | | | | [facility] [address] | | | | | | [place], [place] | | | | | | [address] | | | | | | [phone] | | | +--------+ + + + [...] Rd | | | | | | [place], [place] | | | | | | [address] | | | | | | [phone] | | | | | | | | +--------+---------+ + + + documented as of this encounter Visit Diagnoses Not on filedocumented in this encounter"
--- OUTSIDE RECORDS SUMMARY | ~2019-08-21 | XMS | Encounter Summary ---
Demographics + + + | Address | [address] | | | [place] [address] | + + + | Home Phone | | + + + | Preferred Language | Unknown | + + + | Marital Status | | + + + | Taoist Affiliation | 1077 | + + + | Race | Unknown | + + + | Ethnic Group | Unknown | + + + Author + + + | Author | [facility] | | | and Vladislavana | + + + | Organization | [facility] | | | and [...] Team Providers + +------+ + | Care Manager Of Sustainability Name | Role | Phone | + +------+ + | Valentine Oh MD | PCP | | + +------+ + Encounter Details +--------+ + + + + | Date | Type | Department | Care Team | Description | +--------+ + + + + | 06/02/ | Hospital | [facility] | Adriano, | | | 2001 | Encounter | [facility] | MD [address] | | | | | GENERIC OP CONV DEPT | [address] | | | | | [address] | [place], [place] | | | | | [place], [place] | [address] | | | | | [address] | [phone] | | | | | [phone] | | | +--------+ + + + [...] | 08/26/ | Office | Gastroenterology | [facility] | | | 2019 | Visit | | RAJAN Ramirez [address] | | | | | | [address] | | | | | | [place] | | | | | | [address] | | | | | | | | +--------+---------+ + + + documented as of this encounter Visit Diagnoses Not on filedocumented in this encounter"
--- OUTSIDE RECORDS SUMMARY | ~2019-08-21 | XMS | Encounter Summary ---
Demographics + + + | Address | [address] | | | [place] [address] | + + + | Home Phone | | + + + | Preferred Language | Unknown | + + + | Marital Status | | + + + | Samaritan Affiliation | 1077 | + + + | Race | Unknown | + + + | Ethnic Group | Unknown | + + + Author + + + | Author | [facility] | | | and Vladislavana | + + + | Organization | [facility] | | | and [...] Team Providers + +------+ + | Care Organ Pipe Finisher Name | Role | Phone | + [...] | | l weight | | [place] [address] | | | | | loss | | Phone: | | | | | Abdominal | | [phone] | | | | | pain, | | Fax: | | | | | generalized | | [phone] | | | | | Procedures | | | | | | | NE | | | | | | | COLONOSCOPY | | | | | | | FLX DX | | | | | | | W/COLLJ SPEC | | | | | | | WHEN PFRMD | | | | | | | NE | | | | | | | COLONOSCOPY | | | | | | | W/BIOPSY | | | | | | | SINGLE/MULTI | | | | | | | PLE NE | | | | | | | [...] | | | | | [address] | [address] [place] | | | | | [place], [place] | [place] [address] | | | | | [address] | [phone] | | | | | [phone] | | | +--------+---------+ + + + [...] You can't be awakened Date Last Reviewed: 07/09/201619992691-8687 [employer] [address] [place] [address], [place] [address]. All righ ts reserved. This information is [...] | 08/26/ | Office | Gastroenterology | [facility], | | | 2018 | Visit | | RAJAN Ramirez [address] | | | | | | [address] | | | | | | [place] | | | | | | [address] | | | | | | | [...] | PROVATION | | 07/05/2019 10:17 AMMRN: [id number] #: [id number] of | | | : 1950Admit Type: AmbulatoryAge: 68Room: Endo Room 2Gender: | | | FemaleNote Status: FinalizedAttending MD: MAGNUS SMITH , | | | MDProcedure: ColonoscopyIndications: Chronic | | | diarrhea, Rectal painProviders: MAGNUS SMITH MD, | | | Tova Yuen, OLIVIA, Brisa Olmedo RN, | | | Loni Arambula, Limb Driver, Tc Soto, TechnicianReferring MD: | | | [...] | preparation was evaluated using the BBPS ([place] Bowel | | | Preparation Scale) with [...] Scope In: 10:33:01 AMScope Out: 11:02:11 AM [facility] | | | [facility], [facility] [place] [address] | | | [phone] | | | - Biopsies were taken [...] |Scope Out: 11:02:11 AM | | | [facility], [address], [place], [place] | | | [address] | | + + ----+ + +---------+ + + | Performing | Address | City/State/[facility] Hospitalcode | Phone Number | | Organization | [...] no significant diagnostic | | | abnormality. CLR:[facility]:C2NR GROSS DESCRIPTION: Five specimens | | [...] component was | | | performed by [facility], [address] [place] [address] | | | (Deposition Operator: Lurdes Saul MD; CLIA# [id number]). Professional | | | interpretation was performed by [facility], [facility]. | | | [facility], [address] [place] [address] | | | (Deposition Operator: Thom Bright M.D.; [place]#: | | | [id number]). Diagnostician: Thom Bright MD | | | [...]
--- OUTSIDE RECORDS SUMMARY | ~2019-08-21 | XMS | Encounter Summary ---
Demographics + + + | Address | [address] | | | [place] [address] | + + + | Home Phone | | + + + | Preferred Language | Unknown | + + + | Marital Status | | + + + | Worship Affiliation | 1077 | + + + | Race | Unknown | + + + | Ethnic Group | Unknown | + + + Author + + + | Author | [facility] | | | and Vladislavana | + + + | Organization | [facility] | | [...] Team Providers + +------+ + | Care Marine Rigger Name | Role | Phone | + +------+ + | Valentine Oh MD | PCP | | + +------+ + Encounter Details +--------+ + + + + | Date | Type | Department | Care Team | Description | +--------+ + + + + | 05/02/ | Hospital | [address] | Remigio Irizarry | | | 1999 - | Encounter | [facility] | MD Frederick [address] | | | | | GENERIC OP CONV DEPT | [place] | | | 07/07/ | | [address] | [id number] | | | 1999 | | [place] | | | | | | [address] | | | | | | [phone] | | | +--------+ + + + [...] [place] | | | | | | [address] | | | | | | | | +--------+---------+ + + + documented as of this encounter Visit Diagnoses Not on filedocumented in this encounter"
--- OUTSIDE RECORDS SUMMARY | ~2019-08-21 | XMS | Encounter Summary ---
Demographics + + + | Address | [address] | | | [place] [address] | + + + | Home Phone | | + + + | Preferred Language | Unknown | + + + | Marital Status | | + + + | Yarsanism Affiliation | 1077 | + + + | Race | Unknown | + + + | Ethnic Group | Unknown | + + + Author + + + | Author | [facility] | | | and Vladislavana | + + + | Organization | [facility] | | | and Vladislavana [...] Team Providers + +------+ + | Care Personal Property Appraiser Name | Role | Phone | + +------+ + PCP | Unavailable | + +------+ + Encounter Details +--------+ + + + + | Date | Type | Department | Care Team | Description | +--------+ + + + + | 08/29/ | Hospital | [facility] | | | | 1996 | Encounter | MED CTR LABORATORY | | | | | | [address] | | | | | | [place] | | | | | | [address] | | | | | | [phone] | | | +--------+ + + + [...] | 08/26/ | Office | Gastroenterology | [facility] | | | 2019 | Visit | | RAJAN Ramirez [address] | | | | | | [address] | | | | | | [place] | | | | | | [phone] | | | | | | | | +--------+---------+ + + + documented as of this encounter Visit Diagnoses Not on filedocumented in this encounter"
--- OUTSIDE RECORDS SUMMARY | ~2019-08-21 | XMS | Encounter Summary ---
Demographics + + + | Address | [address] | | | [place] [address] | + + + | Home Phone | | + + + | Preferred Language | Unknown | + + + | Marital Status | | + + + | Confucianism Affiliation | 1077 | + + + | Race | Unknown | + + + | Ethnic Group | Unknown | + + + Author + + + | Author | [facility] | | | and Vldaislavana | + + + | Organization | [facility] | [...] Team Providers + +------+ + | Care Jewelry Bearing Maker Name | Role | Phone | + +------+ + PCP | Unavailable | + +------+ + Encounter Details +--------+ + + + + | Date | Type | Department | Care Team | Description | +--------+ + + + + | 10/25/ | Hospital | [facility] | | | | 1992 | Encounter | MED CTR XRAY [address] | | | | | | [address] | | | | | | [place] [address] | | | | | | [phone] | | | +--------+ + + + [...] | 08/26/ | Office | Gastroenterology | [facility] | | 2019 | Visit | | RAJAN Ramirez [address] | | | | | | [address] | | | | | | [place] | | | | | | [address] | | | | | | | | +--------+---------+ + + + documented as of this encounter Visit Diagnoses Not on filedocumented in this encounter"
--- OUTSIDE RECORDS SUMMARY | ~2019-08-21 | XMS | Encounter Summary ---
Demographics + + + | Address | [address] | | | [place] [address] | + + + | Home Phone | | + + + | Preferred Language | Unknown | + + + | Marital Status | | + + + | Worship Affiliation | 1077 | + + + | Race | Unknown | + + + | Ethnic Group | Unknown | + + + Author + + + | Author | [facility] | | | and Vladislavana | + + + | Organization | [facility] | [...] Team Providers + +------+ + | Care Bindery Chief Name | Role | Phone | + +------+ + | Valentine Oh MD | PCP | | + +------+ + Encounter Details +--------+ + + + + | Date | Type | Department | Care Team | Description | +--------+ + + + + | 09/23/ | Hospital | [facility] | Huy Daniels MD | | | 2001 | Encounter | [facility] | | | | | | GENERIC OP CONV DEPT | | | | | | [address] | | | | | | [place] | | | | | | [address] | | | | | | [phone] | | | +--------+ + + + [...] | 08/26/ | Office | Gastroenterology | [facility], | | | 2019 | Visit | | RAJAN [address] | | | | | | [address] | | | | | | [place] | | | | | | [address] | | | | | | | | +--------+---------+ + + + documented as of this encounter Visit Diagnoses Not on filedocumented in this encounter"
--- OUTSIDE RECORDS SUMMARY | ~2019-08-21 | XMS | Encounter Summary ---
Demographics + + + | Address | [address] | | | [place] [address] | + + + | Home Phone | | + + + | Preferred Language | Unknown | + + + | Marital Status | Single | + + + | Faith Affiliation | Unknown | + + + [...] Team Providers + +------+ + | Care Certified Pathology Assistant Name | Role | Phone | + [...] [address] | | | | | | [place], [place] | | | | | | [address] | | | | | | [phone] | | | | | | | | +--------+---------+ + + + documented as of this encounter Visit Diagnoses Not on filedocumented in this encounter"
--- OUTSIDE RECORDS SUMMARY | ~2019-08-21 | XMS | Encounter Summary ---
Demographics + + + | Address | [address] | | | [place] [address] | + + + | Home Phone | | + + + | Preferred Language | Unknown | + + + | Marital Status | | + + + | Holiness Affiliation | 1077 | + + + | Race | Unknown | + + + | Ethnic Group | Unknown | + + + Author + + + | Author | [facility] | | | and Vladislavana | + + + | Organization | [facility] | | | and Vladisl[place]ana [...] Team Providers + +------+ + | Care Commercial Construction Superintendent Name | Role | Phone | + +------+ + PCP | Unavailable | + +------+ + Encounter Details +--------+ + + + + | Date | Type | Department | Care Team | Description | +--------+ + + + + | 02/05/ | Hospital | [facility] | | | | 1997 | Encounter | MED CTR EMERGENCY | | | | | | CENTER [address] | | | | | | [place] | | | | | | [address] | | | | | | [phone] | | | +--------+ + + + [...] | 08/26/ | Office | Gastroenterology | [facility] | | | 2019 | Visit | | RAJAN [address] | | | | | | [address] | | | | | | [place] | | | | | | [address] | | | | | | | | +--------+---------+ + + + documented as of this encounter Visit Diagnoses Not on filedocumented in this encounter"
--- OUTSIDE RECORDS SUMMARY | ~2019-08-21 | XMS | Encounter Summary ---
Demographics + + + | Address | [address] | | | [place] [address] | + + + | Home Phone | | + + + | Preferred Language | Unknown | + + + | Marital Status | | + + + | Alevism Affiliation | 1077 | + + + | Race | Unknown | + + + | Ethnic Group | Unknown | + + + Author + + + | Author | [facility] | | | and Vladislavana | + + + | Organization | [facility] | | | and [...] Team Providers + +------+ + | Care Massage Therapy Instructor Name | Role | Phone | + +------+ + PCP | Unavailable | + +------+ + Encounter Details +--------+ + + + + | Date | Type | Department | Care Team | Description | +--------+ + + + + | 06/14/ | Hospital | [facility] | | | | 1992 | Encounter | MED CTR LABORATORY | | | | | | [address] | | | | | | [place] | | | | | | [address] | | | | | | [phone] | | | +--------+ + + + [...] | 08/26/ | Office | Gastroenterology | [facility] | | | 2019 | Visit | | RAJAN [address] | | | | | | [address] | | | | | | [place] | | | | | | [phone] | | | | | | | | +--------+---------+ + + + documented as of this encounter Visit Diagnoses Not on filedocumented in this encounter"
--- OUTSIDE RECORDS SUMMARY | ~2019-08-21 | XMS | Encounter Summary ---
Demographics + + + | Address | [address] | | | [place] [address] | + + + | Home Phone [...] | Organization | [facility] | | | and [place]isl[place]ana [...] Team Providers + +------+ + | Care Edge Grinder Machine Name | Role | Phone | + +------+ + PCP | Unavailable | + +------+ + Encounter Details +--------+ + + + + | Date | Type | Department | Care Team | Description | +--------+ + + + + | 09/13/ | Hospital | [facility] | | | | 1992 - | Encounter | MED CTR GENERIC PSY | | | | | | CONV DEPT [address] | | | | 09/26/ | | [address] [place], | | | | 1993 | | [place] [address] | | | | | | [phone] | | | +--------+ + + + [...] | 08/26/ | Office | Gastroenterology | [facility], | | | 2019 | Visit | | RAJAN [address] | | | | | | [address] | | | | | | [place] | | | | | | [address] | | | | | | | | +--------+---------+ + + + documented as of this encounter Visit Diagnoses Not on filedocumented in this encounter"
--- OUTSIDE RECORDS SUMMARY | ~2019-08-21 | XMS | Encounter Summary ---
Demographics + + + | Address | [address] | | | [place] [address] | + + + | Home Phone | | + + + | Preferred Language | Unknown | + + + | Marital Status | | + + + | Church Affiliation | 1077 | + + + | Race | Unknown | + + + | Ethnic Group | Unknown | + + + Author + + + | Author | [facility] | | | and Vladislavana | + + + | Organization | [facility] | | | [...] Team Providers + +------+ + | Care Audio Visual Technician Name | Role | Phone | + +------+ + PCP | Unavailable | + +------+ + Encounter Details +--------+ + + + + | Date | Type | Department | Care Team | Description | +--------+ + + + + | 01/05/ | Hospital | [facility] | | | | 1996 | Encounter | MED CTR EMERGENCY | | | | | | CENTER [address] | | | | | | [place] | | | | | | [address] | | | | | | [phone] | | | +--------+ + + + [...] | 08/26/ | Office | Gastroenterology | [facility] | | | 2019 | Visit | | RAJAN [address] | | | | | [address] | | | | | | [place] | | | | | | [phone] | | | | | | | | +--------+---------+ + + + documented as of this encounter Visit Diagnoses Not on filedocumented in this encounter"
--- OUTSIDE RECORDS SUMMARY | ~2019-08-21 | XMS | Encounter Summary ---
Demographics + + + | Address | [address] | | | [place] [address] | + + + | Home Phone [...] Author + + + | Author | [facility] | + + + | Organization | [facility] | + + + | Address [...] Team Providers + +------+ + | Care T Rail Turner Name | Role | Phone | + [...] Closed | | Gastroenterol | Diagnoses | [place], | Molly Faculty | | | | ogy | Epigastric | MARIA G Richard | [facility] [address] | | | | | pain | Donnie | [address] | | | | | Functional | Family | Mailcode: | | | | | diarrhea | medicine | [facility] | | | | | | [address] | Health and | | | | | | [address] | Healing, | | | | | | [address] | [address] | | | | | | [place], | [place], [place] | | | | | | [place] [address] | [address] | | | | | | Phone: | Phone: | | | | | | [phone] | [phone] | | | | | | Fax: | Fax: | | | | | | [phone] | [phone] | +--------+--------+ + + + + Encounter Details +--------+---------+ + + + | Date | Type | Department | Care Team | Description | +--------+---------+ + + + | 07/20/ | Office | Digestive Health | Bogdan Austin, | Chronic abdominal | | 2019 | Visit | [facility] at [facility] [address] | [address] | pain (Primary Dx); | | | | RON Lee | [address] | Chronic diarrhea | | | | Mailcode: Center | [place], [place] | | | | | for Health and | [address] | | | | | [facility], [facility] [address] | [phone] | | | | | [place], [place] | | | | | | [address] | | | | | | [phone] | | | +--------+---------+ + + + [...] + + + | Oxygen Saturation | - | - | | + [...] + + + documented in this encounter Patient Instructions Patient Instructions Bogdan Austin MD - 07/20/2019 1:00 PM PDTIt was great to meet you. I would like to wait on your stool tests before making any huge changes. In the meantime, we will prescribe a medication called loperamide, which is designed to slo w down stool transit and stop diarrhea. You will take a 2 mg capsule four times a day. Give this 2-3 weeks for effect. Should your pain and diarrhea still presist, we can try an antispasmodic drug. I will also discuss the ability start nortriptyline with Dr. Chowdhury, as I think this would be a very beneficial drug for you. I will plan to see you back back in 3 months. Electronically signed by MD theresa Self 07/20/2019 2:08 PM PDT documented in this encounter Progress Notes Bogdan Austin MD - 07/20/2019 1:00 PM PDTFormatting of this note might be different fro m the original. Gastroenterology Clinic [facility] ~ Initial Consultation / New Patient Evaluation Referring Physician: Hilary Chowdhury Chief Complaint: Chief Complaint Patient presents with New patient consultation Patient Identification: Corrina Nixon is a 68 y.o. female with a history of hypothyroi dism, major depressive disorder and remote anorexia nervosa who presents to the [facility] for evaluation and treatment recommendations for chronic abdominal pain and post prandial diarrhea, and to establish care in our clinic. History of Present Illness: Corrina underwent an extensive surgical course in 2016 that included Heller myotomy with pa raesophageal hernia repair, Liza gastrectomy and partial fundoplication. I am unclear what the indication for this was, as she is unsure herself. Regardless, the symptoms that she pr esents with today started during that time. Most concerning for her is her post prandial karri rrhea, which occurs after ingestion of every meal approximately minutes to half hour after e ating. He stools are watery but brown without any blood or melena. They do not float, they d o not smell particularly foul and are not hard to flush. These bouts can last up to 5 hours, and she notes that she will have to strain significantly as she feels that she does not com pletely evacuate. She reports the straining has resulted in a rectal prolapse which she will manually have to decompress from time to time. She has tried cholestyramine, loperamide, lo motil, and psyllium. None of these have helped the diarrhea. No dietary changes have ever he lped. Has tried low fiber diets, high fiber diets, dairy and gluten holidays for several we eks without resolution. Her diarrhea can wake her from sleep 3x weekly. She also notes constant abdominal pain 7/10 in the umbilical region. Debilitating flares ca n come on suddenly, can be exacerbated by food but aside from that there are no other define d triggers. She has been seen by several gastroenterologists in the past with extensive work ups. Most recently seen by a Brenda GOLDBERG on 07/05. Underwent colonoscopy with random biopsies that s howed no diagnostic abnormality. She was started on colestid which did not help symptoms but exacerbated abdominal pain. Her extended work-up history is as follows: UPPER/LOWER ENDOSCOPY 01/25/2019 PROCEDURE FINDINGS: No lesion to correspond to CT Scan findings. Suspected the "high shutte r speed: of the CT scan captured a segmental contraction. There were numerous diverticula of sigmoid and left colon. There was no sign of polyps, colitis, cancer, or other issues. ~Huy Tello MD [facility] ESOPHAGEAL MOTILITY STUDY 02/22/2015 (presume some abnormality though I have leonora records ) GASTRIC FUNDOPLICATION 2015 GASTRIC MOTILITY STUDY 12/29/2017 Gastric emptying study. Normal Study. ~Maverick Ulrich MD [facility] HERNIA REPAIR 01/2016 Laparoscopic repair of paraesophageal hernia, Heller myotomy, Liza gastroplasty, partial fundoplication Dr. Mclain Swanstrom NECK SURGERY 1995 UPPER GASTROINTESTINAL ENDOSCOPY 12/11/2016 IMPRESSION: Mildly disordered esophageal motility. Small sliding type hiatal hernia. Modera te sized diverticulum arising from the horizontal portion of the duodenum. ~Ganga Riley [facility] UPPER GASTROINTESTINAL ENDOSCOPY 05/13/2017 Impression: No significant dysmotility seen today. Mild dilation of the distalmost esophagu s, from which a small amount of barium refluxed. No hiatal hernia. No reflux fro the stomach . At least 3 large duodenal diverticula. Other Current GI Symptoms: Weight loss: 65 lbs in 3 years Nausea/vomiting: None Appetite: Minimal. Reports desire to eat food, but limits intake given adverse reactions NSAIDs: None Review of Systems: See HPI, all others reviewed and negative Past Medical, Family & Social History: I reviewed the history below with the patient and made any relevant updates or changes in t he medical record. Past Medical History: Diagnosis Date Cataract bilat GERD (gastroesophageal reflux disease) Hernia, hiatal Other general symptoms(780.99) arthritis Unspecified disorder of thyroid Unspecified sleep apnea Noncontributory family history - No GI cancers, IBD Social History Socioeconomic History Marital status: Single Spouse name: Not on file Number of children: Not on file Years of education: Not on file Highest education level: Not on file Occupational History Not on file Social Needs Financial resource strain: Not on file Food insecurity: Worry: Not on file Inability: Not on file Transportation needs: Medical: Not on file Non-medical: Not on file Tobacco Use Smoking status: Never Smoker Smokeless tobacco: Never Used Substance and Sexual Activity Alcohol use: No Drug use: No Sexual activity: Not on file Lifestyle Physical activity: Days per week: Not on file Minutes per session: Not on file Stress: Not on file Relationships Social connections: Talks on phone: Not on file Gets together: Not on file Attends gnosticism service: Not on file Active member of club or organization: Not on file Attends meetings of clubs or organizations: Not on file Relationship status: Not on file Other Topics Concern Not on file Social History Narrative Not on file Allergies Allergen Reactions Morphine Nausea and Vomiting Benadryl [Diphenhydramine Hcl] Unknown Pt states "hypes me up" Current Outpatient Medications Medication BUPROPION XL 150 mg oral tablet extended release 24 hr ESCITALOPRAM OXALATE ORAL gabapentin 300 mg oral capsule GABAPENTIN 300 mg oral capsule LEVOTHYROXINE 150 mcg oral tablet loperamide 2 mg oral capsule OMEPRAZOLE 20 mg oral capsule,delayed release(DR/EC) ZOLPIDEM 5 mg oral tablet No current facility-administered medications for this visit. Physical Exam: BP 129/77 | Pulse 77 | Temp 37.1 C (98.7 F) (Oral) | Resp 16 | Ht 1.676 m (5' 6") | Wt 66.5 kg (146 lb 9.6 oz) | BMI 23.66 kg/m | BSA 1.76 m Appearance: Pleasant female who appears comfortable and in no apparent distress. Somewhat e motional when discussing diagnoses. Psychological: Appropriate mood and affect. Eyes: Sclera anicteric without injection. HENT: Oropharynx visualized and benign without visible ulceration. Neck: No cervical lymphadenopathy. Lung: Clear to Auscultation Bilaterally. CV: Regular Rate and Rhythm. No murmurs. Extremities: No edema. Musculoskeletal: No joint induration or tenderness appreciated. Skin: No lesions or rashes noted. Abdomen: Normoactive bowel Sounds, Soft, Nondistended, difusely tender, worst in upper quad rants today, with voluntary guarding Labs Procedures: Colonoscopy 07/05/2019: Impression: - Decreased sphincter tone found on digital rectal exam. No rectal prolapse visible on this examination. - The examined portion of the ileum was normal. Biopsied. - Granularity at the appendiceal orifice. Biopsied. - The transverse colon, ascending colon and cecum are normal. - Diverticulosis in the sigmoid colon and in the descending colon. - Erythematous mucosa (mild) in the rectum. Biopsied. This could be from prep trauma. - Non-bleeding internal hemorrhoids. - Biopsies were taken with a cold forceps from the right colon and left colon for evaluation of microscopic colitis. Path: FINAL PATHOLOGIC DIAGNOSIS: A. Colon, appendiceal orifice, biopsy: -Fragments of hyperplastic polyp(s). B. Small bowel, terminal ileum, biopsy: -Fragments of small bowel mucosa with no significant diagnostic abnormality. C. Colon, right ascending cecum transverse, biopsy: -Fragments of colonic mucosa with no significant diagnostic abnormality. D. Colon, left descending sigmoid rectum, biopsy: -Fragments of colonic mucosa with no significant diagnostic abnormality. E. Rectal biopsy: -Fragments of colonic mucosa with no significant diagnostic abnormality. Assessment: Corrina Nixon is a 68 y.o. female, who presents for evaluation of chronic abdominal francisco n and post-prandial diarrhea. Given her extensive surgical history it is certainly possible that she is experiening the effects of an inadvertent vagotomy, as the time course and respo nse to food is similar. Unfortunately there are no good treatments for this and management i s aimed at symptom control. All other organic causes for her symptoms have been extensively explored with no positive findings, which puts functional abdominal pain and IBS-D at the to p of my differential. She does not express to me warning signs of recurrent anorexia nervosa , however I imaging that her prior struggles with food and her current symptoms are intimate ly connected. We discussed in detail what functional bowel disorders are, highlighting our evolving under standing of the pathology. I reassured her that despite many "normal results" on her prior t ests, this matthews not mean that there is nothing wrong. She was greatly relieved to hear this a nd felt validated. We discussed the evolving understanding between brain-gut axis and how th is would be a good target for symptom relief in the future with TCA medication. Unfortunatel y she is already on several centrally acting meds and I hesitate to start another one withou t her PCP's input (or perhaps assistance from psychiatry as well). For the time being, we will await the recent stool studies that were obtained on 07/05 at [facility], start QUID scheduled loperamide. If this does not provide relief, we can try dicy clomine prior to meals as an anti-spasmodic agent. Ultimately I feel she would benefit from a TCA if possible. Plan and Recommendations: - discontinue colestid - await outside stool studies - start QID loperamide - we will consider dicyclomine if loperamide provides no relief - would like to consider TCA in the future if no concerns from PCP Follow-Up: 3 months The patient was seen and staffed with Dr. Turk, who agrees with my assessment and plan. Bogdan Austin MD MS GI and Hepatology Fellow Pager [phone] Associated attestation - Ronald Turk MD - 07/27/2019 12:51 PM PSTI saw and examined the patient and discussed the case with Dr. Bogdan Austin.. I agree with the resident's findings and plan as written. documented in this encounter Plan of Treatment +--------+---------+ + + + | Date | Type | Specialty | Care Team | Description | +--------+---------+ + + + | 11/22/ | Office | Gastroenterology | Bogdan Austin, | | | 2019 | Visit | | [address] | | | | | | [facility] | | | | | | [place], [place] | | | | | | [address] | | | | | | [phone] | | | | | | | | +--------+---------+ + + + documented as of this encounter Visit Diagnoses + + | Diagnosis | + + | Chronic abdominal pain - Primary Abdominal pain, unspecified site | + + | Chronic diarrhea Diarrhea | + + documented in this encounter
--- OUTSIDE RECORDS SUMMARY | ~2019-08-21 | XMS | Encounter Summary ---
Demographics + + + | Address | [address] | | | [place] [address] | + + + | Home Phone | | + + + | Preferred Language | Unknown | + + + | Marital Status | | + + + | Congregational Affiliation | 1077 | + + + | Race | Unknown | + + + | Ethnic Group | Unknown | + + + Author + + + | Author | [facility] | | | and [place] | + + + | Organization | [facility] [...] Team Providers + +------+ + | Care Window Sash Installer Name | Role | Phone | + +------+ + PCP | Unavailable | + +------+ + Encounter Details +--------+ + + + + | Date | Type | Department | Care Team | Description | +--------+ + + + + | 09/17/ | Hospital | [facility] | | | | 1993 | Encounter | MED CTR EMERGENCY | | | | | | CENTER [address] | | | | | | [place] | | | | | | [address] | | | | | | [phone] | | | +--------+ + + + [...] | 08/26/ | Office | Gastroenterology | [facility] | | | 2019 | Visit | | RAJAN [address] | | | | | | [address] | | | | | | [place] | | | | | | [id number] | | | | | | | | +--------+---------+ + + + documented as of this encounter Visit Diagnoses Not on filedocumented in this encounter"
--- OUTSIDE RECORDS SUMMARY | ~2019-08-21 | XMS | Encounter Summary ---
Demographics + + + | Address | [address] | | | [place] [address] | + + + | Home Phone | | + + + | Preferred Language | Unknown | + + + | Marital Status | | + + + | Mandaen Affiliation | 1077 | + + + | Race | Unknown | + + + | Ethnic Group | Unknown | + + + Author + + + | Author | [facility] | | | and [place] | + + + | Organization | [facility] | | | and [...] Team Providers + +------+ + | Care Bulb Inspector Name | Role | Phone | + +------+ + PCP | Unavailable | + +------+ + Encounter Details +--------+ + + + + | Date | Type | Department | Care Team | Description | +--------+ + + + + | 09/05/ | Hospital | [facility] | | | | 1996 | Encounter | MED CTR XRAY [address] | | | | | | [address] | | | | | | [place] [address] | | | | | | [phone] | | | +--------+ + + + [...] | 08/26/ | Office | Gastroenterology | [facility] | | 2019 | Visit | | RAJAN [address] | | | | | | [address] | | | | | | [place] | | | | | | [address] | | | | | | | | +--------+---------+ + + + documented as of this encounter Visit Diagnoses Not on filedocumented in this encounter"
--- OUTSIDE RECORDS SUMMARY | ~2019-08-21 | XMS | Encounter Summary ---
Demographics + + + | Address | [address] | | | [place] [address] | + + + | Home Phone | | + + + | Preferred Language | Unknown | + + + | Marital Status | | + + + | Rastafari Affiliation | 1077 | + + + | Race | Unknown | + + + | Ethnic Group | Unknown | + + + Author + + + | Author | [facility] | | | and [place] | + + + | Organization | [facility] | | | [...] Team Providers + +------+ + | Care Gravity Prospecting Observer Helper Name | Role | Phone | + +------+ + PCP | Unavailable | + +------+ + Encounter Details +--------+ + + + + | Date | Type | Department | Care Team | Description | +--------+ + + + + | 06/13/ | Hospital | [facility] | | | | 1993 | Encounter | MED CTR LABORATORY | | | | | | [address] | | | | | | [place] | | | | | | [address] | | | | | | [phone] | | | +--------+ + + + [...] | 08/26/ | Office | Gastroenterology | [facility] | | | 2019 | Visit | | RJAAN [address] | | | | | | [address] | | | | | | [place] | | | | | | [phone] | | | | | | | | +--------+---------+ + + + documented as of this encounter Visit Diagnoses Not on filedocumented in this encounter"
--- OUTSIDE RECORDS SUMMARY | ~2019-08-21 | XMS | Encounter Summary ---
Demographics + + + | Address | [address] | | | [place] [address] | + + + | Home Phone | | + + + | Preferred Language | Unknown | + + + | Marital Status | | + + + | Jehovah'S Witness Affiliation | 1077 | + + + | Race | Unknown | + + + | Ethnic Group | Unknown | + + + Author + + + | Author | [facility] | | | and [place] | + + + | Organization | [facility] | | | and [...] Team Providers + +------+ + | Care Bisque Grader Name | Role | Phone | + +------+ + PCP | Unavailable | + +------+ + Encounter Details +--------+ + + + + | Date | Type | Department | Care Team | Description | +--------+ + + + + | 06/14/ | Hospital | [facility] | | | | 1992 | Encounter | MED CTR LABORATORY | | | | | | [address] | | | | | | [place] | | | | | | [address] | | | | | | [phone] | | | +--------+ + + + [...] | 08/26/ | Office | Gastroenterology | [facility] | | | 2019 | Visit | | RAJAN [address] | | | | | | [address] | | | | | | [place] | | | | | | [phone] | | | | | | | | +--------+---------+ + + + documented as of this encounter Visit Diagnoses Not on filedocumented in this encounter"
--- OUTSIDE RECORDS SUMMARY | ~2019-08-21 | XMS | Encounter Summary ---
Demographics + + + | Address | [address] | | | [place] [address] | + + + | Home Phone | | + + + | Preferred Language | Unknown | + + + | Marital Status | | + + + | Evangelical Affiliation | 1077 | + + + | Race | Unknown | + + + | Ethnic Group | Unknown | + + + Author + + + | Author | [facility] | | | and [place] | + + + | Organization | [facility] | | | and [...] Team Providers + +------+ + | Care Cutting Department Supervisor Name | Role | Phone | [...] [place] | | | | | [address] [place], [place] | [place] [address] | | | | | [address] | [phone] | | | | | [phone] | | | +--------+ + + + [...] | 08/26/ | Office | Gastroenterology | [facility], | | | 2019 | Visit | | RAJAN Ramirez [address] | | | | | | [address] | | | | | | [place] | | | | | | [address] | | | | | | | [...]
--- OUTSIDE RECORDS SUMMARY | ~2019-08-21 | XMS | Encounter Summary ---
Demographics + + + | Address | [address] | | | [place] [address] | + + + | Home Phone | | + + + | Preferred Language | Unknown | + + + | Marital Status | | + + + | Faith Affiliation | 1077 | + + + | Race | Unknown | + + + | Ethnic Group | Unknown | + + + Author + + + | Author | [facility] | | | and [place] | + + + | Organization | [facility] | | | and [place] [...] Team Providers + +------+ + | Care Production Analyst Name | Role | Phone | + +------+ + PCP | Unavailable | + +------+ + Encounter Details +--------+ + + + + | Date | Type | Department | Care Team | Description | +--------+ + + + + | 04/02/ | Hospital | [facility] | | | | 1992 - | Encounter | MED CTR GENERIC IP | | | | | | CONV DEPT [address] | | | | 04/03/ | | [address], | | | | 1992 | | [place] [address] | | | | | | [phone] | | | +--------+ + + + [...] | 08/26/ | Office | Gastroenterology | [facility], | | | 2019 | Visit | | RAJAN [address] | | | | | | [address] | | | | | | [place] | | | | | | [address] | | | | | | | | +--------+---------+ + + + documented as of this encounter Visit Diagnoses Not on filedocumented in this encounter"
--- OUTSIDE RECORDS SUMMARY | ~2019-08-21 | XMS | Encounter Summary ---
Demographics + + + | Address | [address] | | | [place] [address] | + + + | Home Phone [...] Organization | [facility] | | | and [place] [...] Team Providers + +------+ + | Care Assembler Camper Name | Role | Phone | + +------+ + PCP | Unavailable | + +------+ + Encounter Details +--------+ + + + + | Date | Type | Department | Care Team | Description | +--------+ + + + + | 09/13/ | Hospital | [facility] | | | | 1992 - | Encounter | MED CTR GENERIC PSY | | | | | | CONV DEPT [address] | | | | 09/26/ | | [address], | | | | 1993 | | [place] [address] | | | | | | [phone] | | | +--------+ + + + [...] | 08/26/ | Office | Gastroenterology | [facility], | | | 2019 | Visit | | RAJAN [address] | | | | | | [address] | | | | | | [place] | | | | | | [address] | | | | | | | | +--------+---------+ + + + documented as of this encounter Visit Diagnoses Not on filedocumented in this encounter"
--- OUTSIDE RECORDS SUMMARY | ~2019-08-21 | XMS | Encounter Summary ---
Demographics + + + | Address | [address] | | | [place] [address] | + + + | Home Phone | | + + + | Preferred Language | Unknown | + + + | Marital Status | | + + + | Mu-Ism Affiliation | 1077 | + + + | Race | Unknown | + + + | Ethnic Group | Unknown | + + + Author + + + | Author | [facility] | | | and [place] | + + + | Organization | [facility] | | | and [place] [...] Team Providers + +------+ + | Care Client Account Specialist Name | Role | Phone | + +------+ + PCP | Unavailable | + +------+ + Encounter Details +--------+ + + + + | Date | Type | Department | Care Team | Description | +--------+ + + + + | 02/05/ | Hospital | [facility] | | | | 1997 - | Encounter | MED CTR GENERIC PSY | | | | | | CONV DEPT [address] | | | | 02/09/ | | [address], | | | | 1997 | | [place] [address] | | | | | | [phone] | | | +--------+ + + + [...] | 08/26/ | Office | Gastroenterology | [facility], | | | 2019 | Visit | | RAJAN [address] | | | | | | [address] | | | | | | [place] | | | | | | [address] | | | | | | | | +--------+---------+ + + + documented as of this encounter Visit Diagnoses Not on filedocumented in this encounter"
--- OUTSIDE RECORDS SUMMARY | ~2019-08-21 | XMS | Encounter Summary ---
Demographics + + + | Address | [address] | | | [place] [address] | + + + | Home Phone [...] + + | Author | [facility] | | | and Vladislavana | + + + | Organization | [facility] | | | and Vladislavana [...] Team Providers + +------+ + | Care Control Systems Eng Name | Role | Phone | + +------+ + PCP | Unavailable | + +------+ + Encounter Details +--------+ + + + + | Date | Type | Department | Care Team | Description | +--------+ + + + + | 11/05/ | Hospital | [facility] | | | | 1993 | Encounter | MED CTR XRAY [address] | | | | | | [address] | | | | | | [place] [address] | | | | | | [phone] | | | +--------+ + + + [...] | 08/26/ | Office | Gastroenterology | [facility] | | 2019 | Visit | | RAJAN Ramirez [address] | | | | | | [address] | | | | | | [place] | | | | | | [address] | | | | | | | | +--------+---------+ + + + documented as of this encounter Visit Diagnoses Not on filedocumented in this encounter"
--- OUTSIDE RECORDS SUMMARY | ~2019-08-21 | XMS | Encounter Summary ---
Demographics + + + | Address | [address] | | | [place] [address] | + + + | Home Phone [...] Organization | [facility] | | | and Vladislavana [...] Team Providers + +------+ + | Care Power Plant Superintendent Name | Role | Phone | + +------+ + PCP | Unavailable | + +------+ + Encounter Details +--------+ + + + + | Date | Type | Department | Care Team | Description | +--------+ + + + + | 05/08/ | Hospital | [facility] | | | | 1992 - | Encounter | MED CTR OP REHAB | | | | | | [address] | | | | 08/22/ | | [place] [address] | | | | 1992 | | [phone] | | | +--------+ + + + [...] | 08/26/ | Office | Gastroenterology | [facility] | | | 2019 | Visit | | RAJAN [address] | | | | | | [address] | | | | | | [place] | | | | | | [id number] | | | | | | | | +--------+---------+ + + + documented as of this encounter Visit Diagnoses Not on filedocumented in this encounter"
--- OUTSIDE RECORDS SUMMARY | ~2019-08-21 | XMS | Encounter Summary ---
Demographics + + + | Address | [address] | | | [place] [address] | + + + | Home Phone | | + + + | Preferred Language | Unknown | + + + | Marital Status | | + + + | Voodoo Affiliation | 1077 | + + + | Race | Unknown | + + + | Ethnic Group | Unknown | + + + Author + + + | Author | [facility] | | | and Vladislavana | + + + | Organization | [facility] | | | and [...] Team Providers + +------+ + | Care Cupola Liner Name | Role | Phone | + +------+ + | Valentine Oh MD | PCP | | + +------+ + Encounter Details +--------+ + + + + | Date | Type | Department | Care Team | Description | +--------+ + + + + | 01/23/ | [facility] | [facility] | Jose Borrego MD | | | 2008 | Encounter | MED CTR GENERIC OP | [address] | | | | | CONV DEPT [address] | [address] [place] | | | | | [address], | [address] | | | | | [place] [address] | | | | | | [phone] | | | +--------+ + + + [...] [place] | | | | | | [id number] | | | | | | | | +--------+---------+ + + + documented as of this encounter Visit Diagnoses Not on filedocumented in this encounter"
--- OUTSIDE RECORDS SUMMARY | ~2019-08-21 | XMS | Encounter Summary ---
Demographics + + + | Address | [address] | | | [place] [address] | + + + | Home Phone | | + + + | Preferred Language | Unknown | + + + | Marital Status | | + + + | Pentecostalism Affiliation | 1077 | + + + | Race | Unknown | + + + | Ethnic Group | Unknown | + + + Author + + + | Author | [facility] | | | and Vladislavana | + + + | Organization | [facility] | | | and [place]isl[place]ana [...] Team Providers + +------+ + | Care Ball Worker Name | Role | Phone | + +------+ + PCP | Unavailable | + +------+ + Encounter Details +--------+ + + + + | Date | Type | Department | Care Team | Description | +--------+ + + + + | 05/08/ | Hospital | [facility] | | | | 1992 - | Encounter | MED CTR OP REHAB | | | | | | [address] | | | | 08/22/ | | [place] [address] | | | | 1992 | | [phone] | | | +--------+ + + + [...] | 08/26/ | Office | Gastroenterology | [facility] | | | 2019 | Visit | | RAJAN [address] | | | | | | [address] | | | | | | [place] | | | | | | [id number] | | | | | | | | +--------+---------+ + + + documented as of this encounter Visit Diagnoses Not on filedocumented in this encounter"
--- OUTSIDE RECORDS SUMMARY | ~2019-08-21 | XMS | Encounter Summary ---
Demographics + + + | Address | [address] | | | [place] [address] | + + + | Home Phone | | + + + | Preferred Language | Unknown | + + + | Marital Status | | + + + | Jehovah'S Witness Affiliation | 1077 | + + + | Race | Unknown | + + + | Ethnic Group | Unknown | + + + Author + + + | Author | [facility] | | | and [place]isl[place]ana | + + + | Organization | [facility] | | | and [place]isl[place]ana [...] Team Providers + +------+ + | Care Tape Controlled Machine Stitcher Name | Role | Phone | + +------+ + PCP | Unavailable | + +------+ + Encounter Details +--------+ + + + + | Date | Type | Department | Care Team | Description | +--------+ + + + + | 06/14/ | Hospital | [facility] | | | | 1992 | Encounter | MED CTR LABORATORY | | | | | | [address] | | | | | | [place] | | | | | | [address] | | | | | | [phone] | | | +--------+ + + + [...] | 08/26/ | Office | Gastroenterology | [facility] | | | 2019 | Visit | | RAJAN [address] | | | | | | [address] | | | | | | [place] | | | | | | [id number] | | | | | | | | +--------+---------+ + + + documented as of this encounter Visit Diagnoses Not on filedocumented in this encounter"
--- OUTSIDE RECORDS SUMMARY | ~2019-08-21 | XMS | Encounter Summary ---
Demographics + + + | Address | [address] | | | [place] [address] | + + + | Home Phone | | + + + | Preferred Language | Unknown | + + + | Marital Status | | + + + | Mormonism Affiliation | 1077 | + + + | Race | Unknown | + + + | Ethnic Group | Unknown | + + + Author + + + | Author | [facility] | | | and [place]isl[place]ana | + + + | Organization | [facility] | | | and [place] [...] Team Providers + +------+ + | Care Talent Director Name | Role | Phone | + +------+ + PCP | Unavailable | + +------+ + Encounter Details +--------+ + + + + | Date | Type | Department | Care Team | Description | +--------+ + + + + | 07/14/ | Hospital | [facility] | | | | 1997 | Encounter | MED CTR GENERIC OP | | | | | | CONV DEPT [address] | | | | | | [address], | | | | | | [place] [address] | | | | | | [phone] | | | +--------+ + + + [...] | 08/26/ | Office | Gastroenterology | [facility] | | | 2019 | Visit | | RAJAN [address] | | | | | | [address] | | | | | | [place] | | | | | | [id number] | | | | | | | | +--------+---------+ + + + documented as of this encounter Visit Diagnoses Not on filedocumented in this encounter"
--- OUTSIDE RECORDS SUMMARY | ~2019-08-21 | XMS | Encounter Summary ---
Demographics + + + | Address | [address] | | | [place] [address] | + + + | Home Phone | | + + + | Preferred Language | Unknown | + + + | Marital Status | | + + + | Sabianist Affiliation | 1077 | + + + | Race | Unknown | + + + | Ethnic Group | Unknown | + + + Author + + + | Author | [facility] | | | and [place]isl[place]ana | + + + | Organization | [facility] | | [...] Team Providers + +------+ + | Care Marble Setter Helper Name | Role | Phone | + +------+ + PCP | Unavailable | + +------+ + Encounter Details +--------+ + + + + | Date | Type | Department | Care Team | Description | +--------+ + + + + | 09/27/ | Hospital | [facility] | | | | 1993 - | Encounter | MED CTR GENERIC PSY | | | | | | CONV DEPT [address] | | | | 10/24/ | | [address], | | | | 1993 | | [place] [address] | | | | | | [phone] | | | +--------+ + + + [...] | Office | Gastroenterology | [facility], | | | 2019 | Visit | | RAJAN [address] | | | | | | [address] | | | | | | [place] | | | | | | [address] | | | | | | | | +--------+---------+ + + + documented as of this encounter Visit Diagnoses Not on filedocumented in this encounter"
--- OUTSIDE RECORDS SUMMARY | ~2019-08-21 | XMS | Encounter Summary ---
Demographics + + + | Address | [address] | | | [place] [address] | + + + | Home Phone | | + + + | Preferred Language | Unknown | + + + | Marital Status | | + + + | Anglican Affiliation | 1077 | + + + | Race | Unknown | + + + | Ethnic Group | Unknown | + + + Author + + + | Author | [facility] | | | and [place]islavana | + + + | Organization | [facility] | | | and [...] Team Providers + +------+ + | Care Strip Stamp Straightener Name | Role | Phone | + +------+ + PCP | Unavailable | + +------+ + Encounter Details +--------+ + + + + | Date | Type | Department | Care Team | Description | +--------+ + + + + | 09/12/ | Hospital | [facility] | | | | 1996 | Encounter | MED CTR LABORATORY | | | | | | [address] | | | | | | [place] | | | | | | [address] | | | | | | [phone] | | | +--------+ + + + [...] Office | Gastroenterology | [facility] | | | 2019 | Visit | | RAJAN [address] | | | | | | [address] | | | | | | [place] | | | | | | [phone] | | | | | | | | +--------+---------+ + + + documented as of this encounter Visit Diagnoses Not on filedocumented in this encounter"
--- OUTSIDE RECORDS SUMMARY | ~2019-08-21 | XMS | Encounter Summary ---
Demographics + + + | Address | [address] | | | [place] [address] | + + + | Home Phone | | + + + | Preferred Language | Unknown | + + + | Marital Status | | + + + | Yazidi Affiliation | 1077 | + + + | Race | Unknown | + + + | Ethnic Group | Unknown | + + + Author + + + | Author | [facility] | | | and Vladislavana | + + + | Organization | [facility] | | | and Vladislavana [...] Team Providers + +------+ + | Care Simulation Software Engineer Name | Role | Phone | [...] | | l weight | | [place] [address] | | | | | loss | | Phone: | | | | | Abdominal | | [phone] | | | | | pain, | | Fax: | | | | | generalized | | [phone] | | | | | Procedures | | | | | | | [place] | | | | | | | COLONOSCOPY | | | | | | | FLX DX | | | | | | | W/COLLJ SPEC | | | | | | | WHEN PFRMD | | | | | | | [place] | | | | | | | COLONOSCOPY | | | | | | | W/BIOPSY | | | | | | | SINGLE/MULTI | | | | | | | PLE UT | | | | | | | [...] + + | 07/05/ | Hospital | [facility] | Magnus Smith | Diarrhea, | | 2019 | Encounter | MED CTR MP INTRA OP | MD [address] | unspecified type; | | | | [address] | [address] [place] | Unintentional weight | | | | [place], [place] | [place] [address] | loss; Abdominal | | | | [address] | [phone] | pain, generalized | | | | [phone] | | | +--------+ + + + [...] You can't be awakened Date Last Reviewed: 07/09/201619998648-1251 [employer]. [address] [place] [address], [place] [address]. All righ ts reserved. This information is [...] by mouth every | | 0 | /03/11 | | | (WELLBUTRIN XL) 150 | [...] | 08/26/ | Office | Gastroenterology | [facility], | | | 2019 | Visit | | RAJAN Ramirez [address] | | | | | | [address] | | | | | | [place] | | | | | | [address] | | | | | | | [...] | [facility] | | GastroenterologyPatient Name: Corrina NixonProcedabraham Date: | PROVATION | | 07/05/2019 10:17 AMMRN: [id number] #: [id number] of | | | : 1950Admit Type: AmbulatoryAge: 68Room: Endo Room 2Gender: | | | FemaleNote Status: FinalizedAttending MD: MAGNUS SMITH , | | | MDProcedure: ColonoscopyIndications: Chronic | | | diarrhea, Rectal painProviders: MAGNUS SMITH MD, | | | Tova Yuen RN, Brisa Olmedo RN, | | | Loin Arambula, Operations Assistant, Tc Soto TechnicianReferring MD: | | | Hilary Chowdhury (Referring ), RAJAN Juarez | | | (Referring )Medicines: Fentanyl 150 | | | micrograms IV, [...] | preparation was evaluated using the BBPS ([place] Bowel | | | Preparation Scale) with [...] Scope In: 10:33:01 AMScope Out: 11:02:11 AM [facility] | | | [facility], [facility] [place] [address] | | | [phone] | | | - Biopsies were taken [...] | - Resume previous diet. | | |MGANUS SMITH MD | | |07/05/2019 11:10:08 AM | | |This report has been signed electronically. | | |Number of Addenda: 0 | | |Note Initiated On: 07/05/2019 10:17 AM | | |Scope Withdrawal Time: 0 hours 18 minutes 7 seconds | | |Scope In: 10:33:01 AM | | |Scope Out: 11:02:11 AM | | | [facility], [facility] [place], [place] | | | [address] | | + + ----+ + +---------+ + + | Performing | Address | City/State[facility] | Phone Number | | Organization [...] no significant diagnostic | | | abnormality. CLR:[facility]:C2NR GROSS DESCRIPTION: Five specimens | | [...] component was | | | performed by [facility], [address] [place] [address] | | | (Auto Body Mechanic: Lurdes Saul MD; CLIA# [id number]). Professional | | | interpretation was performed by [facility], [place]. | | | [facility], [place] [address] | | | (Auto Body Mechanic: Thom Bright M.D.; CLIA#: | | | [id number]). Diagnostician: Thom Bright MD | | | Pathologist Electronically Signed 07/06/2019 | | + + + + +---------+ + + | Performing | Address | City/State/[facility] | Phone Number | | Organization | | | | + +---------+ + + | [place] [facility] | | | | | [employer] | | | | + +---------+ + [...]
--- OUTSIDE RECORDS SUMMARY | ~2019-08-21 | XMS | Encounter Summary ---
Demographics + + + | Address | [address] | | | [place] [address] | + + + | Home Phone | | + + + | Preferred Language | Unknown | + + + | Marital Status | | + + + | Confucianism Affiliation | 1077 | + + + | Race | Unknown | + + + | Ethnic Group | Unknown | + + + Author + + + | Author | [facility] | | | and [place]isl[place]ana | + + + | Organization | [facility] | | | and [place]isl[place]ana [...] Team Providers + +------+ + | Care Automation Qa Analyst Name | Role | Phone | + +------+ + PCP | Unavailable | + +------+ + Encounter Details +--------+ + + + + | Date | Type | Department | Care Team | Description | +--------+ + + + + | 11/10/ | Hospital | [facility] | | | | 1993 - | Encounter | MED CTR GENERIC PSY | | | | | | CONV DEPT [address] | | | | 11/16/ | | [address], | | | | 1993 | | [place] [address] | | | | | | [phone] | | | +--------+ + + + [...] [place] | | | | | | [address] | | | | | | | | +--------+---------+ + + + documented as of this encounter Visit Diagnoses Not on filedocumented in this encounter"
--- OUTSIDE RECORDS SUMMARY | ~2019-08-21 | XMS | Encounter Summary ---
Demographics + + + | Address | [address] | | | [place] [address] | + + + | Home Phone | | + + + | Preferred Language | Unknown | + + + | Marital Status | | + + + | Mandaen Affiliation | 1077 | + + + | Race | Unknown | + + + | Ethnic Group | Unknown | + + + Author + + + | Author | [facility] | | | and Vladisl[place]ana | + + + | Organization | [facility] | | | and [...] Team Providers + +------+ + | Care Gambling Cashier Name | Role | Phone | + +------+ + PCP | Unavailable | + +------+ + Encounter Details +--------+ + + + + | Date | Type | Department | Care Team | Description | +--------+ + + + + | 08/16/ | Hospital | [facility] | | | | 1996 - | Encounter | MED CTR GENERIC PSY | | | | | | CONV DEPT [address] | | | | 08/22/ | | [address], | | | | 1996 | | [place] [address] | | | | | | [phone] | | | +--------+ + + + [...] | 08/26/ | Office | Gastroenterology | [facility], | | | 2019 | Visit | | RAJAN Ramirez [address] | | | | | | [address] | | | | | | [place] | | | | | | [address] | | | | | | | | +--------+---------+ + + + documented as of this encounter Visit Diagnoses Not on filedocumented in this encounter"
--- OUTSIDE RECORDS SUMMARY | ~2019-08-21 | XMS | Encounter Summary ---
Demographics + + + | Address | [address] | | | [place] [address] | + + + | Home Phone | | + + + | Preferred Language | Unknown | + + + | Marital Status | | + + + | Episcopalian Affiliation | 1077 | + + + | Race | Unknown | + + + | Ethnic Group | Unknown | + + + Author + + + | Author | [facility] | | | and [place]isl[place] | + + + | Organization | [facility] | | | and [place] [...] Team Providers + +------+ + | Care Sand Technologist Name | Role | Phone | + +------+ + PCP | Unavailable | + +------+ + Encounter Details +--------+ + + + + | Date | Type | Department | Care Team | Description | +--------+ + + + + | 04/02/ | Hospital | [facility] | | | | 1992 - | Encounter | MED CTR GENERIC IP | | | | | | CONV DEPT [address] | | | | 04/03/ | | [address], | | | | 1992 | | [place] [address] | | | | | | [phone] | | | +--------+ + + + [...] | 08/26/ | Office | Gastroenterology | [facility], | | | 2019 | Visit | | RAJAN [address] | | | | | | [address] | | | | | | [place] | | | | | | [address] | | | | | | | | +--------+---------+ + + + documented as of this encounter Visit Diagnoses Not on filedocumented in this encounter"
--- OUTSIDE RECORDS SUMMARY | ~2019-08-21 | XMS | Encounter Summary ---
Demographics + + + | Address | [address] | | | [place] [address] | + + + | Home Phone | | + + + | Preferred Language | Unknown | + + + | Marital Status | | + + + | Roman Catholic Affiliation | 1077 | + + + | Race | Unknown | + + + | Ethnic Group | Unknown | + + + Author + + + | Author | [facility] | | | and [place]isl[place] | + + + | Organization | [facility] | | [...] Team Providers + +------+ + | Care Doctor Of Veterinary Medicine Name | Role | Phone | + +------+ + PCP | Unavailable | + +------+ + Encounter Details +--------+ + + + + | Date | Type | Department | Care Team | Description | +--------+ + + + + | 10/25/ | Hospital | [facility] | | | | 1992 | Encounter | MED CTR XRAY [address] | | | | | | [address] | | | | | | [place] [address] | | | | | | [phone] | | | +--------+ + + + [...] | 08/26/ | Office | Gastroenterology | [facility] | | 2019 | Visit | | RAJAN Ramirez [address] | | | | | | [address] | | | | | | [place] | | | | | | [address] | | | | | | | | +--------+---------+ + + + documented as of this encounter Visit Diagnoses Not on filedocumented in this encounter"
--- OUTSIDE RECORDS SUMMARY | ~2019-08-21 | XMS | Encounter Summary ---
Demographics + + + | Address | [address] | | | [place] [address] | + + + | Home Phone | | + + + | Preferred Language | Unknown | + + + | Marital Status | | + + + | Anabaptist Affiliation | 1077 | + + + | Race | Unknown | + + + | Ethnic Group | Unknown | + + + Author + + + | Author | [facility] | | | and [place]isl[place] | + + + | Organization | [facility] | | | and [place] [...] Team Providers + +------+ + | Care Well Services Operator Name | Role | Phone | + +------+ + PCP | Unavailable | + +------+ + Encounter Details +--------+ + + + + | Date | Type | Department | Care Team | Description | +--------+ + + + + | 09/05/ | Hospital | [facility] | | | | 1996 | Encounter | MED CTR XRAY [address] | | | | | | [address] | | | | | | [place] [address] | | | | | | [phone] | | | +--------+ + + + [...] [place] | | | | | | [address] | | | | | | | | +--------+---------+ + + + documented as of this encounter Visit Diagnoses Not on filedocumented in this encounter"
--- OUTSIDE RECORDS SUMMARY | ~2019-08-21 | XMS | Encounter Summary ---
Demographics + + + | Address | [address] | | | [place] [address] | + + + | Home Phone [...] + + | Author | [facility] | | | and Vladislavana | + + + | Organization | [facility] | | | and [...] Team Providers + +------+ + | Care Railroad Car Inspector Name | Role | Phone | [...] | | l weight | | [place] [address] | | | | | loss | | Phone: | | | | | Abdominal | | [phone] | | | | | pain, | | Fax: | | | | | generalized | | [phone] | | | | | Procedures | | | | | | | ME | | | | | | | COLONOSCOPY | | | | | | | FLX DX | | | | | | | W/COLLJ SPEC | | | | | | | WHEN PFRMD | | | | | | | ME | | | | | | | COLONOSCOPY | | | | | | | W/BIOPSY | | | | | | | SINGLE/MULTI | | | | | | | PLE ME | | | | | | | [...] + + | 07/05/ | Hospital | [facility] | Magnus Smith | Diarrhea, | | 2019 | Encounter | MED CTR MP INTRA OP | MD Huy [address] | unspecified type; | | | | [address] | [address] [place] | Unintentional weight | | | | [place], [place] | [place] [address] | loss; Abdominal | | | | [address] | [phone] | pain, generalized | | | | [phone] | | | +--------+ + + + [...] You can't be awakened Date Last Reviewed: 07/09/[id number] [employer]. [address] [place] [address], [place] [address]. All righ ts reserved. This information is [...] | 08/26/ | Office | Gastroenterology | [facility], | | | 2019 | Visit | | RAJAN Ramirez [address] | | | | | | [address] | | | | | | [place] | | | | | | [address] | | | | | | | [...] | PROVATION | | 07/05/2019 10:17 AMMRN: [id number] #: [id number] of | | | : 1950Admit Type: AmbulatoryAge: 68Room: Endo Room 2Gender: | | | FemaleNote Status: FinalizedAttending MD: MAGNUS SMITH , | | | MDProcedure: ColonoscopyIndications: Chronic | | | diarrhea, Rectal painProviders: MAGNUS SMITH MD, | | | Tova Yuen RN, Brisa Olmedo RN, | | | Loni Arambula, Pump Room Operator, Tc Soto TechnicianReferring MD: | | | [...] | preparation was evaluated using the BBPS ([place] Bowel | | | Preparation Scale) with [...] Scope In: 10:33:01 AMScope Out: 11:02:11 AM [facility] | | | [facility], [facility] [place][note 2] [place] [address] | | | [phone] | | | - Biopsies were taken [...] |Scope Out: 11:02:11 AM | | | [facility], [facility] [place][note 2] [place], [place] | | | [address] | | + + ----+ + +---------+ + + | Performing | Address | City/State/Inscription House Health Centercode | Phone Number | | Organization [...] no significant diagnostic | | | abnormality. CLR:[facility]:C2NR GROSS DESCRIPTION: Five [...] component was | | | performed by [email or web address], [address] [place] [id number] | | | (National Sales Associate: Lurdes Saul MD; CLIA# [id number]). Professional | | | interpretation was performed by [email or web address], [facility]. | | | [facility], [facility] [place][note 2] [place] [address] | | | (National Sales Associate: Thom Bright M.D.; CLIA#: | | | [id number]). Diagnostician: Thom Bright MD | | | Pathologist Electronically Signed 07/06/2019 | | + + + + +---------+ + + | Performing | Address | City/State/Inscription House Health Centercode | Phone Number | | Organization | | | | + +---------+ + + | [place] [facility] | | | | | [employer] | | | | + +---------+ + [...]
--- OUTSIDE RECORDS SUMMARY | ~2019-08-21 | XMS | Encounter Summary ---
Demographics + + + | Address | [address] | | | [place] [address] | + + + | Home Phone | | + + + | Preferred Language | Unknown | + + + | Marital Status | | + + + | Orthodox Affiliation | 1077 | + + + | Race | Unknown | + + + | Ethnic Group | Unknown | + + + Author + + + | Author | [facility] | | | and Vladislavana | + + + | Organization | [facility] [...] Team Providers + +------+ + | Care Sales Mgr Name | Role | Phone | + +------+ + PCP | Unavailable | + +------+ + Encounter Details +--------+ + + + + | Date | Type | Department | Care Team | Description | +--------+ + + + + | 05/15/ | Hospital | [facility] | | | | 1997 | Encounter | MED CTR GENERIC OP | | | | | | CONV DEPT [address] | | | | | | [address] [place], | | | | | | [place] [address] | | | | | | [phone] | | | +--------+ + + + [...] 08/26/ | Office | Gastroenterology | [facility] | | | 2019 | Visit | | RAJAN Ramirez [address] | | | | | | [address] | | | | | | [place] | | | | | | [id number] | | | | | | | | +--------+---------+ + + + documented as of this encounter Visit Diagnoses Not on filedocumented in this encounter"
--- OUTSIDE RECORDS SUMMARY | ~2019-08-21 | XMS | Encounter Summary ---
Demographics + + + | Address | [address] | | | [place] [address] | + + + | Home Phone | | + + + | Preferred Language | Unknown | + + + | Marital Status | | + + + | Denominational Affiliation | 1077 | + + + | Race | Unknown | + + + | Ethnic Group | Unknown | + + + Author + + + | Author | [facility] | | | and Vladislavana | + + + | Organization | [facility] | | | and Vladislavana [...] Team Providers + +------+ + | Care Accounts Payable Representative Name | Role | Phone | + +------+ + PCP | Unavailable | + +------+ + Encounter Details +--------+ + + + + | Date | Type | Department | Care Team | Description | +--------+ + + + + | 09/26/ | Hospital | [facility] | | | | 1997 | Encounter | MED CTR XRAY [address] | | | | | | [address] | | | | | | [place] [address] | | | | | | [phone] | | | +--------+ + + + [...] | 08/26/ | Office | Gastroenterology | [facility] | | 2019 | Visit | | RAJAN Ramirez [address] | | | | | | [address] | | | | | | [place] | | | | | | [address] | | | | | | | | +--------+---------+ + + + documented as of this encounter Visit Diagnoses Not on filedocumented in this encounter"
--- OUTSIDE RECORDS SUMMARY | ~2019-08-21 | XMS | Encounter Summary ---
Demographics + + + | Address | [address] | | | [place] [address] | + + + | Home Phone | | + + + | Preferred Language | Unknown | + + + | Marital Status | | + + + | Mosque Affiliation | 1077 | + + + | Race | Unknown | + + + | Ethnic Group | Unknown | + + + Author + + + | Author | [facility] | | | and Vladislavana | + + + | Organization | [facility] | | | and [...] Team Providers + +------+ + | Care Aadc Plans Staff Officer Name | Role | Phone | + +------+ + | Hilary Chowdhury PA-C | PCP | | + +------+ + Encounter Details +--------+ + + + + | Date | Type | Department | Care Team | Description | +--------+ + + + + | 05/10/ | Abstract | [facility] | Provider, | | | 2018 | | GASTROENTEROLOGY | MD [address] | | | | | [address] [facility] | Maryanne V[place]QUEZ | | | | | [address] [place] | [place] [address] | | | | | [address] | | | | | | [phone] | | | +--------+ + + + [...] + + + | Blood Pressure | - | - | | + + + + + | Pulse | - | - | | + + + + + | Temperature | - | - | | + + + + + | Respiratory Rate | - | - | | + + + + + | Oxygen Saturation | - | - | | + + + + + | Inhaled Oxygen | - | - | | | Concentration | | | | + + + + + | Weight | 67.6 kg (149 lb) | 04/13/2019 9:05 AM | | | | | PDT | | + + + + + | Height | 165.1 cm (5' 5") | 04/13/2019 9:05 AM | | | | | PDT | | + + + + + | Body Mass Index | 24.79 | 04/13/2019 9:05 AM | | | | | PDT | | + + + + + documented in this encounter Plan of Treatment +--------+---------+ + + + | Date | Type | Specialty | Care Team | Description | +--------+---------+ + + + | 08/26/ | Office | Gastroenterology | [facility], | | | 2018 | Visit | | RAJAN Ramirez [address] | | | | | | [address] | | | | | | [place] | | | | | | [address] | | | | | | | | +--------+---------+ + + + documented as of this encounter Procedures + +--------+ + + + | Procedure Name | Priori | Date/Time | Associated Diagnosis | Comments | | | ty | | | | + +--------+ + + + | SPECIMEN TO | Routin | 02/03/2019 | | Results for this | | PATHOLOGY | e | | | procedure are in the | | | | | | results section. | + +--------+ + + + | SPECIMEN TO | Routin | 01/26/2019 | | Results for this | | PATHOLOGY | e | | | procedure are in the | | | | | | results section. | + +--------+ + + + | EXTERNAL LAB: BUN | Routin | 01/25/2019 | | Results for this | | | e | | | procedure are in the | | | | | | results section. | + +--------+ + + + | EXTERNAL LAB: | Routin | 01/25/2019 | | Results for this | | GLUCOSE | e | | | procedure are in the | | | | | | results section. | + +--------+ + + + | EXTERNAL LAB: ALT | Routin | 01/25/2019 | | Results for this | | | e | | | procedure are in the | | | | | | results section. | + +--------+ + + + | EXTERNAL LAB: AST | Routin | 01/25/2019 | | Results for this | | | e | | | procedure are in the | | | | | | results section. | + +--------+ + + + | EXTERNAL LAB: | Routin | 01/25/2019 | | Results for this | | ALKALINE PHOSPHATASE | e | | | procedure are in the | | | | | | results section. | + +--------+ + + + | EXTERNAL LAB: | Routin | 01/25/2019 | | Results for this | | BILIRUBIN, TOTAL | e | | | procedure are in the | | | | | | results section. | + +--------+ + + + | EXTERNAL LAB: | Routin | 01/25/2019 | | Results for this | | ALBUMIN | e | | | procedure are in the | | | | | | results section. | + +--------+ + + + | EXTERNAL LAB: | Routin | 01/25/2019 | | Results for this | | PROTEIN, TOTAL | e | | | procedure are in the | | | | | | results section. | + +--------+ + + + | EXTERNAL LAB: | Routin | 01/25/2019 | | Results for this | | CALCIUM | e | | | procedure are in the | | | | | | results section. | + +--------+ + + + | EXTERNAL LAB: CARBON | Routin | 01/25/2019 | | Results for this | | DIOXIDE | e | | | procedure are in the | | | | | | results section. | + +--------+ + + + | EXTERNAL LAB: | Routin | 01/25/2019 | | Results for this | | CHLORIDE | e | | | procedure are in the | | | | | | results section. | + +--------+ + + + | EXTERNAL LAB: | Routin | 01/25/2019 | | Results for this | | POTASSIUM | e | | | procedure are in the | | | | | | results section. | + +--------+ + + + | EXTERNAL LAB: SODIUM | Routin | 01/25/2019 | | Results for this | | | e | | | procedure are in the | | | | | | results section. | + +--------+ + + + | EXTERNAL LAB: CBC | Routin | 01/25/2019 | | Results for this | | | e | | | procedure are in the | | | | | | results section. | + +--------+ + + + | EXTERNAL LAB: EGFR | Routin | 01/25/2019 | | Results for this | | | e | | | procedure are in the | | | | | | results section. | + +--------+ + + + | EXTERNAL LAB: | Routin | 01/25/2019 | | Results for this | | CREATININE | e | | | procedure are in the | | | | | | results section. | + +--------+ + + + | CBC WITH | Routin | 01/25/2019 | | Results for this | | DIFFERENTIAL | e | | | procedure are in the | | | | | | results section. | + +--------+ + + + | COMPREHENSIVE | Routin | 01/25/2019 | | Results for this | | METABOLIC PANEL | e | | | procedure are in the | | | | | | results section. | + +--------+ + + + | OVA AND PARASITE | Routin | 01/22/2019 | | Results for this | | EXAMINATION | e | | | procedure are in the | | | | | | results section. | + +--------+ + + + | SPECIMEN TO | Routin | 09/23/2013 | | Results for this | | PATHOLOGY | e | | | procedure are in the | | | | | | results section. | + +--------+ + + + documented in this encounter Results Specimen to Pathology (02/03/2019) + + + + + + | Component | Value | Ref Range | Performed | Pathologist | | | | | At | Signature | + + + + + + | Path Final | Endometrial polyp, | | | | | Diagnosis A | biopsy: Simple | | | | | | hyperplasia without | | | | | | atypia with cystic | | | | | | change. Endometrial | | | | | | polyp. Negative for | | | | | | atypia and malignancy. | | | | + + + + + + + + | Specimen | + + | Tissue | + + Specimen to Pathology (01/26/2019) + + + + + + | Component | Value | Ref Range | Performed | Pathologist | | | | | At | Signature | + + + + + + | Path Final | Rectum biopsy: Benign | | | | | Diagnosis A | colonic mucosa with | | | | | | slight polypoid features | | | | | | and slight hyperplastic | | | | | | change (two fragments). | | | | | | Negative for | | | | | | significant epithelial | | | | | | atypia. | | | | + + + + + + + + | Specimen | + + | Tissue | + + External Lab: ROBERTO (01/25/2019) + +-------+ + + + | Component | Value | Ref Range | Performed | Pathologist | | | | | At | Signature | + +-------+ + + + | BUN, | 15 | 6 - 23 | EXTERNAL | | | External | | | LAB | | + +-------+ + + + + +---------+ + + | Performing | Address | City/State/Zipcode | Phone Number | | Organization | | | | + +---------+ + + | EXTERNAL LAB | | | | + +---------+ + + External Lab: Glucose (01/25/2019) + +-------+ + + + | Component | Value | Ref Range | Performed | Pathologist | | | | | At | Signature | + +-------+ + + + | Glucose, | 86 | 70 - 100 | EXTERNAL | | | External | | | LAB | | + +-------+ + + + + +---------+ + + | Performing | Address | City/State/Zipcode | Phone Number | | Organization | | | | + +---------+ + + | EXTERNAL LAB | | | | + +---------+ + + External Lab: ALT (01/25/2019) + +-------+ + + + | Component | Value | Ref Range | Performed | Pathologist | | | | | At | Signature | + +-------+ + + + | ALT, | 12 | 7 - 52 | EXTERNAL | | | External | | | LAB | | + +-------+ + + + + +---------+ + + | Performing | Address | City/State/Zipcode | Phone Number | | Organization | | | | + +---------+ + + | EXTERNAL LAB | | | | + +---------+ + + External Lab: AST (01/25/2019) + +-------+ + + + | Component | Value | Ref Range | Performed | Pathologist | | | | | At | Signature | + +-------+ + + + | AST, | 18 | 13 - 39 | EXTERNAL | | | External | | | LAB | | + +-------+ + + + + +---------+ + + | Performing | Address | City/State/Zipcode | Phone Number | | Organization | | | | + +---------+ + + | EXTERNAL LAB | | | | + +---------+ + + External Lab: Alkaline Phosphatase (01/25/2019) + +-------+ + + + | Component | Value | Ref Range | Performed | Pathologist | | | | | At | Signature | + +-------+ + + + | ALP, | 99 | 31 - 130 | EXTERNAL | | | External | | | LAB | | + +-------+ + + + + +---------+ + + | Performing | Address | City/State/Zipcode | Phone Number | | Organization | | | | + +---------+ + + | EXTERNAL LAB | | | | + +---------+ + + External Lab: Bilirubin, Total (01/25/2019) + +-------+ + + + | Component | Value | Ref Range | Performed | Pathologist | | | | | At | Signature | + +-------+ + + + | Bilirubin, | 1.2 | 0 - 1.2 | EXTERNAL | | | Total, | | | LAB | | | External | | | | | + +-------+ + + + + +---------+ + + | Performing | Address | City/State/Zipcode | Phone Number | | Organization | | | | + +---------+ + + | EXTERNAL LAB | | | | + +---------+ + + External Lab: Albumin (01/25/2019) + +-------+ + + + | Component | Value | Ref Range | Performed | Pathologist | | | | | At | Signature | + +-------+ + + + | Albumin, | 4.5 | 3.5 - 5 | EXTERNAL | | | External | | | LAB | | + +-------+ + + + + +---------+ + + | Performing | Address | City/State/Zipcode | Phone Number | | Organization | | | | + +---------+ + + | EXTERNAL LAB | | | | + +---------+ + + External Lab: Protein, Total (01/25/2019) + +-------+ + + + | Component | Value | Ref Range | Performed | Pathologist | | | | | At | Signature | + +-------+ + + + | Protein, | 7.3 | 6 - 8.3 | EXTERNAL | | | Total, | | | LAB | | | External | | | | | + +-------+ + + + + +---------+ + + | Performing | Address | City/State/Zipcode | Phone Number | | Organization | | | | + +---------+ + + | EXTERNAL LAB | | | | + +---------+ + + External Lab: Calcium (01/25/2019) + +-------+ + + + | Component | Value | Ref Range | Performed | Pathologist | | | | | At | Signature | + +-------+ + + + | Calcium, | 9.6 | 8.5 - 10.3 | EXTERNAL | | | External | | | LAB | | + +-------+ + + + + +---------+ + + | Performing | Address | City/State/Zipcode | Phone Number | | Organization | | | | + +---------+ + + | EXTERNAL LAB | | | | + +---------+ + + External Lab: Carbon Dioxide (01/25/2019) + +-------+ + + + | Component | Value | Ref Range | Performed | Pathologist | | | | | At | Signature | + +-------+ + + + | Carbon | 29 | 19 - 31 | EXTERNAL | | | Dioxide, | | | LAB | | | External | | | | | + +-------+ + + + + +---------+ + + | Performing | Address | City/State/Zipcode | Phone Number | | Organization | | | | + +---------+ + + | EXTERNAL LAB | | | | + +---------+ + + External Lab: Chloride (01/25/2019) + +-------+ + + + | Component | Value | Ref Range | Performed | Pathologist | | | | | At | Signature | + +-------+ + + + | Chloride, | 104 | 95 - 112 | EXTERNAL | | | External | | | LAB | | + +-------+ + + + + +---------+ + + | Performing | Address | City/State/Zipcode | Phone Number | | Organization | | | | + +---------+ + + | EXTERNAL LAB | | | | + +---------+ + + External Lab: Potassium (01/25/2019) + +-------+ + + + | Component | Value | Ref Range | Performed | Pathologist | | | | | At | Signature | + +-------+ + + + | Potassium, | 3.8 | 3.6 - 5.1 | EXTERNAL | | | External | | | LAB | | + +-------+ + + + + +---------+ + + | Performing | Address | City/State/Zipcode | Phone Number | | Organization | | | | + +---------+ + + | EXTERNAL LAB | | | | + +---------+ + + External Lab: Sodium (01/25/2019) + +-------+ + + + | Component | Value | Ref Range | Performed | Pathologist | | | | | At | Signature | + +-------+ + + + | Sodium, | 141 | 132 - 143 | EXTERNAL | | | External | | | LAB | | + +-------+ + + + + +---------+ + + | Performing | Address | City/State/Zipcode | Phone Number | | Organization | | | | + +---------+ + + | EXTERNAL LAB | | | | + +---------+ + + External Lab: eGFR (01/25/2019) + +--------+ + + + | Component | Value | Ref Range | Performed | Pathologist | | | | | At | Signature | + +--------+ + + + | eGFR, | 58 (A) | 60 - 99,999 | EXTERNAL | | | External | | | LAB | | + +--------+ + + + + + | Specimen | + + | Blood | + + + +---------+ + + | Performing | Address | City/State/Zipcode | Phone Number | | Organization | | | | + +---------+ + + | EXTERNAL LAB | | | | + +---------+ + + External Lab: Creatinine (01/25/2019) + +-------+ + + + | Component | Value | Ref Range | Performed | Pathologist | | | | | At | Signature | + +-------+ + + + | Creatinine, | 0.95 | 0.7 - 1.25 | EXTERNAL | | | External | | | LAB | | + +-------+ + + + + + | Specimen | + + | Blood | + + + +---------+ + + | Performing | Address | City/State/Zipcode | Phone Number | | Organization | | | | + +---------+ + + | EXTERNAL LAB | | | | + +---------+ + + Comprehensive Metabolic Panel (01/25/2019) + +-------+ + + + | Component | Value | Ref Range | Performed | Pathologist | | | | | At | Signature | + +-------+ + + + | Anion Gap | 12 | 7 - 21 mmol/L | | | + +-------+ + + + | Bun/Creatin | 15.8 | 6.0 - 28.6 | | | | ine | | Ratio | | | + +-------+ + + + | Albumin/Maricel | 1.6 | 1.1 - 2.4 Ratio | | | | bulin Ratio | | | | | + +-------+ + + + | Globulin | 2.8 | 1.8 - 3.5 g/dl | | | + +-------+ + + + + + | Specimen | + + | Blood | + + CBC with Differential (01/25/2019) + +-------+ + + + | Component | Value | Ref Range | Performed | Pathologist | | | | | At | Signature | + +-------+ + + + | MCH | 30.0 | 27.0 - 33.0 pg | | | + +-------+ + + + | MCHC | 33.0 | 30.0 - 36.0 | | | | | | g/dL | | | + +-------+ + + + | % Basophils | 0.9 | 0.0 - 2.0 % | | | + +-------+ + + + + + | Specimen | + + | Blood | + + External Lab: CBC (01/25/2019) + +---------+ + + + | Component | Value | Ref Range | Performed | Pathologist | | | | | At | Signature | + +---------+ + + + | WBC, | 4.1 (A) | 4.5 - 11 | EXTERNAL | | | External | | | LAB | | + +---------+ + + + | HGB, | 13.4 | 12 - 16 | EXTERNAL | | | External | | | LAB | | + +---------+ + + + | HCT, | 40.9 | 35 - 45 | EXTERNAL | | | External | | | LAB | | + +---------+ + + + | PLT, | 138 (A) | 140 - 440 | EXTERNAL | | | External | | | LAB | | + +---------+ + + + | Neutrophils | 62.9 | 39 - 80 | EXTERNAL | | | %, | | | LAB | | | External | | | | | + +---------+ + + + | Lymphocytes | 27.3 | 24 - 44 | EXTERNAL | | | %, | | | LAB | | | External | | | | | + +---------+ + + + | Monocytes | 6.8 | 0 - 12 | EXTERNAL | | | %, External | | | LAB | | + +---------+ + + + | Eosinophils | 2.1 | 0 - 6 | EXTERNAL | | | %, | | | LAB | | | External | | | | | + +---------+ + + + | RBC, | 4.47 | 3.8 - 5.1 | EXTERNAL | | | External | | | LAB | | + +---------+ + + + | MCV, | 92 | 81 - 99 | EXTERNAL | | | External | | | LAB | | + +---------+ + + + | RDW, | 13.7 | 10.5 - 15 | EXTERNAL | | | External | | | LAB | | + +---------+ + + + + +---------+ + + | Performing | Address | City/State/Zipcode | Phone Number | | Organization | | | | + +---------+ + + | EXTERNAL LAB | | | | + +---------+ + + Ova and Parasite Examination (01/22/2019) + + + + + + | Component | Value | Ref Range | Performed | Pathologist | | | | | At | Signature | + + + + + + | Ova + | Result #1 02/19/2019 No | | | | | Parasite | ova and parasites seen.; | | | | | Exam | (Direct, concentrate, | | | | | | and trichrome performed | | | | | | as indicated.) | | | | + + + + + + + + | Specimen | + + | Stool - Stool | | specimen (specimen) | + + Specimen to Pathology (09/23/2013) + + + + + + | Component | Value | Ref Range | Performed | Pathologist | | | | | At | Signature | + + + + + + | Path Final | MUCOSA,DUODENUM,BIOPSY: | | | | | Diagnosis A | No pathologic diagnosis | | | | + + + + + + | Path Final | MUCOSA, ANTRUM, BIOPSY: | | | | | Diagnosis B | Mild chronic gastritis, | | | | | | Immunostain negative for | | | | | | the presence of | | | | | | Helicobacter. | | | | + + + + + + | Path Final | MUCOSA, DISTAL | | | | | Diagnosis C | ESOPHAGUS, BIOPSY: Mild | | | | | | chronic esophagitis with | | | | | | features consistent | | | | | | with reflux. | | | | + + + + + + | Path Final | MUCOSA, MID ESOPHAGUS, | | | | | Diagnosis D | BIOPSY: No pathologic | | | | | | diagnosis. | | | | + + + + + + + + | Specimen | + + | Tissue | + + documented in this encounter Visit Diagnoses Not on filedocumented in this encounter
--- OUTSIDE RECORDS SUMMARY | ~2019-08-21 | XMS | Encounter Summary ---
Demographics + + + | Address | [address] | | | [place] [address] | + + + | Home Phone | | + + + | Preferred Language | Unknown | + + + | Marital Status | | + + + | Mormonism Affiliation | 1077 | + + + | Race | Unknown | + + + | Ethnic Group | Unknown | + + + Author + + + | Author | [facility] | | | and [place] | + + + | Organization | [facility] | | | and [place] [...] Team Providers + +------+ + | Care Dance Entertainer Name | Role | Phone | + +------+ + PCP | Unavailable | + +------+ + Encounter Details +--------+ + + + + | Date | Type | Department | Care Team | Description | +--------+ + + + + | 08/14/ | Hospital | [facility] | | | | [facility] | Encounter | [facility] | | [facility] | | [facility] [address] | | | | | | [place] | | | | | | [address] | | | | | | [phone] | | | +--------+ + + + [...] | 08/26/ | Office | Gastroenterology | [facility] | | | 2019 | Visit | | RAJAN Ramirez [address] | | | | | | [address] | | | | | | [place] | | | | | | [phone] | | | | | | | | +--------+---------+ + + + documented as of this encounter Visit Diagnoses Not on filedocumented in this encounter"
--- OUTSIDE RECORDS SUMMARY | ~2019-08-21 | XMS | Encounter Summary ---
Demographics + + + | Address | [address] | | | [place] [address] | + + + | Home Phone [...] | [facility] | [...] Team Providers + +------+ + | Care Truck Rental Service Attendant Name | Role | Phone | + +------+ + PCP | Unavailable | + +------+ + Encounter Details +--------+ + + + + | Date | Type | Department | Care Team | Description | +--------+ + + + + | 01/05/ | Hospital | [facility] | | | | 1996 | Encounter | MED CTR EMERGENCY | | | | | | CENTER [address] | | | | | | [place] | | | | | | [address] | | | | | | [phone] | | | +--------+ + + + [...] | 08/26/ | Office | Gastroenterology | [facility] | | | 2019 | Visit | | RAJAN Ramirez [address] | | | | | | [address] | | | | | | [place] | | | | | | [id number] | | | | | | | | +--------+---------+ + + + documented as of this encounter Visit Diagnoses Not on filedocumented in this encounter"
--- OUTSIDE RECORDS SUMMARY | ~2019-08-21 | XMS | Encounter Summary ---
Demographics + + + | Address | [address] | | | [place] [address] | + + + | Home Phone | | + + + | Preferred Language | Unknown | + + + | Marital Status | | + + + | Yarsanism Affiliation | 1077 | + + + | Race | Unknown | + + + | Ethnic Group | Unknown | + + + Author + + + | Author | [facility] | | | and [place]isl[place]ana | + + + | Organization | [facility] | | [...] Team Providers + +------+ + | Care Kineseologist Name | Role | Phone | + +------+ + | Hilary Chowdhury PA-C | PCP | | + +------+ + Encounter Details +--------+ + + + + | Date | Type | Department | Care Team | Description | +--------+ + + + + | 08/05/ | Abstract | [facility] | Provider, | | | 2018 | | GASTROENTEROLOGY | MD [address] | | | | | [address] [facility] [address] [address] | [place] | | | | | [address] [place] | [place] [address] | | | | | [address] | | | | | | [phone] | | | +--------+ + + + [...] | 08/26/ | Office | Gastroenterology | [facility], | | | 2019 | Visit | | RAJAN Ramirez [address] | | | | | | [address] | | | | | | [place] | | | | | | [address] | | | | | | | [...] + + documented in this encounter Results EXTERNAL: COLONOSCOPY (07/05/2019) + + + + + + | Component | Value | Ref Range | Performed | Pathologist | | | | | At | Signature | + + + + + + | Colonoscopy | See Full Report~ [facility] | | | | | | Dr. Fortune | | | | | Impression, | | | | | | External | | | | | + + + + + + documented in this encounter Visit Diagnoses Not on filedocumented in this encounter"
--- OUTSIDE RECORDS SUMMARY | ~2019-08-21 | XMS | Encounter Summary ---
Demographics + + + | Address | [address] | | | [place] [address] | + + + | Home Phone | | + + + | Preferred Language | Unknown | + + + | Marital Status | | + + + | Caodaism Affiliation | 1077 | + + + | Race | Unknown | + + + | Ethnic Group | Unknown | + + + Author + + + | Author | [facility] | | | and [place] | + + + | Organization | [facility] | | | and [...] Team Providers + +------+ + | Care Brim Cutter Name | Role | Phone | + +------+ + | Valentine Oh MD | PCP | | + +------+ + Encounter Details +--------+ + + + + | Date | Type | Department | Care Team | Description | +--------+ + + + + | 01/13/ | Hospital | [facility] | Adri[place], | | | 2001 - | Encounter | [facility] | MD [address] | | | | | GENERIC OP CONV DEPT | [address] | | | 01/14/ | | [address] | [place] | | | 2001 | | [place] | [address] | | | | | [address] | [phone] | | | | | [phone] | | | +--------+ + + + [...] | 08/26/ | Office | Gastroenterology | [facility], | | | 2019 | Visit | | Ashley, DIRECTOR OF COMMUNICATIONS [address] | | | | | | [address] | | | | | | [place] | | | | | | [address] | | | | | | | | +--------+---------+ + + + documented as of this encounter Visit Diagnoses Not on filedocumented in this encounter"
--- OUTSIDE RECORDS SUMMARY | ~2019-08-21 | XMS | Encounter Summary ---
Demographics + + + | Address | [address] | | | [place] [address] | + + + | Home Phone | | + + + | Preferred Language | Unknown | + + + | Marital Status | | + + + | Latter-Day Affiliation | 1077 | + + + | Race | Unknown | + + + | Ethnic Group | Unknown | + + + Author + + + | Author | [facility] | | | and [place]ana | + + + | Organization | [facility] | | | and [...] Team Providers + +------+ + | Care Parts Puller Name | Role | Phone | + [...] | | | | [address] [facility] | [place] | | | | | [address] [place] | [place] [address] | | | | | [address] | | | | | | [phone] | | | +--------+ + + + [...] | 08/26/ | Office | Gastroenterology | [facility], | | | 2018 | Visit | | RAJAN Ramirez [address] | | | | | | [address] | | | | | | [place] | | | | | | [address] | | | | | | | [...]
--- OUTSIDE RECORDS SUMMARY | ~2019-08-21 | XMS | Encounter Summary ---
Demographics + + + | Address | [address] | | | [place] [address] | + + + | Home Phone | | + + + | Preferred Language | Unknown | + + + | Marital Status | | + + + | Voodoo Affiliation | 1077 | + + + | Race | Unknown | + + + | Ethnic Group | Unknown | + + + Author + + + | Author | [facility] [place] | | | and [place]isl[place]ana | + + + | Organization | and [facility] | | | and [place] | [...] Team Providers + +------+ + | Care Mineral Mixer Name | Role | Phone | + [...] | | | | | | [place] [address] | [address] | | | | | | Phone: | Phone: | | | | | | [phone] | [phone] | | | | | | Fax: | Fax: | | | | | | [phone] | [phone] | +--------+--------+ + + + + Encounter [...] | [address] [place] | [place], [address] | (Primary Dx); | | | | [address] [place], [place] | [place], [place] | Unintentional weight | | | | [address] | [address] | loss; Abdominal | | | | [phone] | | pain, generalized | +--------+---------+ + [...] [address] Fortune at [facility]. Reviewed surgical history, medications and allergies, reviewed bowel prep instructions, Rx sent to [email or web address] in [place], [employer] or[facility]ation given to patient. Case request submitted. [...] She was seen by the GI in [facility]. She has also had colonoscopy with Dr Lucas in [facility]. There is a history of eating disorder, [...] DX: Bile Gastritis ~Chemo Ruby MD [facility] EGD 09/23/2013 No esophagitis, tortuous esophagus, [...] MD ESOPHAGEAL MOTILITY STUDY 02/22/2015 GASTRIC FUNDOPLICATION [place] GASTRIC MOTILITY STUDY 12/29/2017 Gastric emptying study. Normal Study. ~Maverick Ulrich MD [facility] HERNIA REPAIR 01/2016 Laparoscopic repair of paraesophageal hernia, Heller myotomy, Liza gastroplasty, partial fundoplication Dr[facility]cl[facility] NECK SURGERY 1995 UPPER GASTROINTESTINAL ENDOSCOPY 12/11/2016 IMPRESSION: Mildly disordered esophageal motility. Small sliding type hiatal hernia. 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 ~Ganga Riley [facility] UPPER GASTROINTESTINAL ENDOSCOPY 05/13/2017 Impression: No [...] | | | | | [place] | | | | | | [address] | | | | | | | [...]
--- OUTSIDE RECORDS SUMMARY | ~2019-08-21 | XMS | Encounter Summary ---
Demographics + + + | Address | [address] | | | [place] [address] | + + + | Home Phone | | + + + | Preferred Language | Unknown | + + + | Marital Status | | + + + | Jew Affiliation | 1077 | + + + | Race | Unknown | + + + | Ethnic Group | Unknown | + + + Author + + + | Author | [facility] | | | and [place] | + + + | Organization | [facility] [...] Team Providers + +------+ + | Care Edger Operator Name | Role | Phone | + +------+ + PCP | Unavailable | + +------+ + Encounter Details +--------+ + + + + | Date | Type | Department | Care Team | Description | +--------+ + + + + | 06/13/ | Hospital | [facility] | | | | 1993 | Encounter | MED CTR LABORATORY | | | | | | [address] | | | | | | [place] | | | | | | [address] | | | | | | [phone] | | | +--------+ + + + [...] [place] | | | | | | [id number] | | | | | | | | +--------+---------+ + + + documented as of this encounter Visit Diagnoses Not on filedocumented in this encounter"
--- OUTSIDE RECORDS SUMMARY | ~2019-08-21 | XMS | Encounter Summary ---
Demographics + + + | Address | [address] | | | [place] [address] | + + + | Home Phone [...] | Organization | [facility] [...] Team Providers + +------+ + | Care Ruby On Rails Engineer Name | Role | Phone | + +------+ + PCP | Unavailable | + +------+ + Encounter Details +--------+ + + + + | Date | Type | Department | Care Team | Description | +--------+ + + + + | 05/21/ | Hospital | [facility] | | | | 1993 - | Encounter | MED CTR GENERIC PSY | | | | | | CONV DEPT [address] | | | | 06/03/ | | [address] [place], | | | | 1993 | | [place] [address] | | | | | | [phone] | | | +--------+ + + + [...] [place] | | | | | | [address] | | | | | | | | +--------+---------+ + + + documented as of this encounter Visit Diagnoses Not on filedocumented in this encounter"
--- OUTSIDE RECORDS SUMMARY | ~2019-08-21 | XMS | Encounter Summary ---
Demographics + + + | Address | [address] | | | [place] [address] | + + + | Home Phone [...] + + | Organization | [facility] | | | and [place]ana | [...] Team Providers + +------+ + | Care Construction Sales Representative Name | Role | Phone | + +------+ + PCP | Unavailable | + +------+ + Encounter Details +--------+ + + + + | Date | Type | Department | Care Team | Description | +--------+ + + + + | 09/27/ | Hospital | [facility] | | | | 1993 - | Encounter | MED CTR GENERIC PSY | | | | | | CONV DEPT [address] | | | | 10/24/ | | [address] [place], | | | | 1993 | | [place] [address] | | | | | | [phone] | | | +--------+ + + + [...] | 08/26/ | Office | Gastroenterology | [facility], | | | 2019 | Visit | | RAJAN Ramirez [address] | | | | | | [address] | | | | | | [place] | | | | | | [address] | | | | | | | | +--------+---------+ + + + documented as of this encounter Visit Diagnoses Not on filedocumented in this encounter"
--- OUTSIDE RECORDS SUMMARY | ~2019-08-21 | XMS | Encounter Summary ---
Demographics + + + | Address | [address] | | | [place] [address] | + + + | Home Phone | | + + + | Preferred Language | Unknown | + + + | Marital Status | | + + + | Confucianist Affiliation | 1077 | + + + | Race | Unknown | + + + | Ethnic Group | Unknown | + + + Author + + + | Author | [facility] | | | and [place]isl[place] | + + + | Organization | [facility] | | | [...] Team Providers + +------+ + | Care Liability Claims Manager Name | Role | Phone | + +------+ + PCP | Unavailable | + +------+ + Encounter Details +--------+ + + + + | Date | Type | Department | Care Team | Description | +--------+ + + + + | 08/14/ | Hospital | [facility] | | | | 1996 - | Encounter | MED CTR ICU [address] | | | | | | [address], | | | | 08/16/ | | [place] [address] | | | | 1996 | | [phone] | | | +--------+ + + + [...] [place] | | | | | | [address] | | | | | | | | +--------+---------+ + + + documented as of this encounter Visit Diagnoses Not on filedocumented in this encounter"
--- OUTSIDE RECORDS SUMMARY | ~2019-08-21 | XMS | Encounter Summary ---
Demographics + + + | Address | [address] | | | [place] [address] | + + + | Home Phone | | + + + | Preferred Language | Unknown | + + + | Marital Status | | + + + | Adventism Affiliation | 1077 | + + + | Race | Unknown | + + + | Ethnic Group | Unknown | + + + Author + + + | Author | [facility] | | | and [place]isl[place]ana | + + + | Organization | [facility] | | | and [...] Team Providers + +------+ + | Care Lockstitch Coat Joiner Name | Role | Phone | + +------+ + PCP | Unavailable | + +------+ + Encounter Details +--------+ + + + + | Date | Type | Department | Care Team | Description | +--------+ + + + + | 06/11/ | Hospital | [facility] | | | | 1992 | Encounter | MED CTR XRAY [address] | | | | | | [address] | | | | | | [place] [address] | | | | | | [phone] | | | +--------+ + + + [...] [place] | | | | | | [address] | | | | | | | | +--------+---------+ + + + documented as of this encounter Visit Diagnoses Not on filedocumented in this encounter"
--- OUTSIDE RECORDS SUMMARY | ~2019-08-21 | XMS | Encounter Summary ---
Demographics + + + | Address | [address] | | | [place] [address] | + + + | Home Phone | | + + + | Preferred Language | Unknown | + + + | Marital Status | | + + + | Catholic Affiliation | 1077 | + + + | Race | Unknown | + + + | Ethnic Group | Unknown | + + + Author + + + | Author | [facility] | | | and [place] | + + + | Organization | [facility] [...] Team Providers + +------+ + | Care Human Resources Generalist Name | Role | Phone | + +------+ + PCP | Unavailable | + +------+ + Encounter Details +--------+ + + + + | Date | Type | Department | Care Team | Description | +--------+ + + + + | 02/05/ | Hospital | [facility] | | | | 1997 | Encounter | MED CTR EMERGENCY | | | | | | CENTER [address] | | | | | | [place] | | | | | | [address] | | | | | | [phone] | | | +--------+ + + + [...] | 08/26/ | Office | Gastroenterology | [facility] | | | 2019 | Visit | | RAJAN Ramirez [address] | | | | | | [address] | | | | | | [place] | | | | | | [address] | | | | | | | | +--------+---------+ + + + documented as of this encounter Visit Diagnoses Not on filedocumented in this encounter"
--- OUTSIDE RECORDS SUMMARY | ~2019-08-21 | XMS | Encounter Summary ---
Demographics + + + | Address | [address] | | | [place] [address] | + + + | Home Phone | | + + + | Preferred Language | Unknown | + + + | Marital Status | | + + + | Latter Day Affiliation | 1077 | + + + | Race | Unknown | + + + | Ethnic Group | Unknown | + + + Author + + + | Author | [facility] | | | and [place]isl[place] | + + + | Organization | [facility] | | | and [place] [...] Team Providers + +------+ + | Care Senior Gis Analyst Name | Role | Phone | + +------+ + PCP | Unavailable | + +------+ + Encounter Details +--------+ + + + + | Date | Type | Department | Care Team | Description | +--------+ + + + + | 09/26/ | Hospital | [facility] | | | | 1997 | Encounter | MED CTR XRAY [address] | | | | | | [address] | | | | | | [place] [address] | | | | | | [phone] | | | +--------+ + + + [...] | 08/26/ | Office | Gastroenterology | [facility] | | 2019 | Visit | | RAJAN Ramirez [address] | | | | | | [address] | | | | | | [place] | | | | | | [address] | | | | | | | | +--------+---------+ + + + documented as of this encounter Visit Diagnoses Not on filedocumented in this encounter"
--- OUTSIDE RECORDS SUMMARY | ~2019-08-21 | XMS | Encounter Summary ---
Demographics + + + | Address | [address] | | | [place] [address] | + + + | Home Phone | | + + + | Preferred Language | Unknown | + + + | Marital Status | | + + + | Episcopalian Affiliation | 1077 | + + + | Race | Unknown | + + + | Ethnic Group | Unknown | + + + Author + + + | Author | [facility] | | | and [place]isl[place] | + + + | Organization | [facility] | | | and [place]ana [...] Team Providers + +------+ + | Care Orthotic/Prosthetic Practitioner Name | Role | Phone | + +------+ + PCP | Unavailable | + +------+ + Encounter Details +--------+ + + + + | Date | Type | Department | Care Team | Description | +--------+ + + + + | 07/17/ | Hospital | [facility] | | | | 1992 | Encounter | MED CTR LABORATORY | | | | | | [address] | | | | | | [place] | | | | | | [address] | | | | | | [phone] | | | +--------+ + + + [...] | 08/26/ | Office | Gastroenterology | [facility] | | | 2019 | Visit | | RAJAN Ramirez [address] | | | | | | [address] | | | | | | [place] | | | | | | [address] | | | | | | | | +--------+---------+ + + + documented as of this encounter Visit Diagnoses Not on filedocumented in this encounter"
--- OUTSIDE RECORDS SUMMARY | ~2019-08-21 | XMS | Encounter Summary ---
Demographics + + + | Address | [address] | | | [place] [address] | + + + | Home Phone [...] Organization | [facility] | | | and [place] [...] Team Providers + +------+ + | Care Distribution Clerk Name | Role | Phone | + +------+ + | Valentine Oh MD | PCP | | + +------+ + Encounter Details +--------+ + + + + | Date | Type | Department | Care Team | Description | +--------+ + + + + | 04/17/ | Hospital | [facility] | Huy Daniels MD | | | 1999 - | Encounter | [facility] | [place], | | | | | GENERIC OP CONV DEPT | [address] | | | 05/12/ | | [address] | [place] | | | 1999 | | [place] | [address] | | | | | [address] | | | | | | [phone] | | | +--------+ + + + [...] [place] | | | | | | [address] | | | | | | | | +--------+---------+ + + + documented as of this encounter Visit Diagnoses Not on filedocumented in this encounter"
--- OUTSIDE RECORDS SUMMARY | ~2019-08-21 | XMS | Encounter Summary ---
Demographics + + + | Address | [address] | | | [place] [address] | + + + | Home Phone | | + + + | Preferred Language | Unknown | + + + | Marital Status | Single | + + + | Scientologist Affiliation | Unknown | + + + | Race | White | + + + | Ethnic Group | Not or | + + + Author + + + | Author | [facility] | + + + | Organization | [facility] | + + + | [...] Team Providers + +------+ + | Care Cafeteria Monitor Name | Role | Phone | + [...] 07/22/ | Abstract | [facility] | Austino[place]dan, | Medical Records | | 2019 | | Center at [facility] [address] | MD [address] | Review | | | | [address] | [facility] | | | | | Mailcode: Center | [place], [place] | | | | | [facility] and | [address] | | | | | [facility] [address] | [phone] | | | | | [place], [place] | | | | | | [address] | | | | | | [phone] | | | +--------+ + + + [...] | | 2019 | Visit | | [address] | | | | | | [place] | | | | | | [place], [place] | | | | | | [address] | | | | | | [phone] | | | | | | | | +--------+---------+ + + + documented as of this encounter Visit Diagnoses Not on filedocumented in this encounter"
--- OUTSIDE RECORDS SUMMARY | ~2019-08-21 | XMS | Encounter Summary ---
Demographics + + + | Address | [address] | | | [place] [address] | + + + | Home Phone | | + + + | Preferred Language | Unknown | + + + | Marital Status | Single | + + + | Christianity Affiliation | Unknown | + + + | Race | White | + + + | Ethnic Group | Not or | + + + Author + + + | Author | [facility] | + + + | Organization | [facility] | + + + | Address | [...] Providers + +------+ + | Care Manager Transportation Planning Name | Role | Phone | + [...] | 2015 | Encounter | Center at [facility] [address] | [address] | test | | | | [address] | [address] [place], | | | | | Mailcode: [place] | [place] [address] | | | | | for [facility] and | [phone] | | | | | [facility] [address] | | | | | | [employer], [place] | | | | | | [address] | | | | | | [phone] | | | +--------+ + + + [...] Rd | | | | | | [place], [place] | | | | | | [address] | | | | | | [phone] | | | | | | | | +--------+---------+ + + + documented as of this encounter Visit Diagnoses Not on filedocumented in this encounter"
--- OUTSIDE RECORDS SUMMARY | ~2019-08-21 | XMS | Encounter Summary ---
Demographics + + + | Address | [address] | | | [place] [address] | + + + | Home Phone | | + + + | Preferred Language | Unknown | + + + | Marital Status | | + + + | Catholic Affiliation | 1077 | + + + | Race | Unknown | + + + | Ethnic Group | Unknown | + + + Author + + + | Author | [facility] | | | and [place]isl[place]ana | + + + | Organization | [facility] | | | and [place]isl[place]ana [...] Team Providers + +------+ + | Care Signal Maintainer Helper Name | Role | Phone | + +------+ + PCP | Unavailable | + +------+ + Encounter Details +--------+ + + + + | Date | Type | Department | Care Team | Description | +--------+ + + + + | 09/17/ | Hospital | [facility] | | | | 1993 - | Encounter | MED CTR GENERIC PSY | | | | | | CONV DEPT [address] | | | | 09/24/ | | [address] [place], | | | | 1994 | | [place] [address] | | | | | | [phone] | | | +--------+ + + + [...] | 08/26/ | Office | Gastroenterology | [facility], | | | 2019 | Visit | | RAJAN Ramirez [address] | | | | | | [address] | | | | | | [place] | | | | | | [address] | | | | | | | | +--------+---------+ + + + documented as of this encounter Visit Diagnoses Not on filedocumented in this encounter"
--- OUTSIDE RECORDS SUMMARY | ~2019-08-21 | XMS | Encounter Summary ---
Demographics + + + | Address | [address] | | | [place] [address] | + + + | Home Phone [...] + | Organization | [facility] | | | and [...] Team Providers + +------+ + | Care Anvil Seating Press Operator Name | Role | Phone | + +------+ + PCP | Unavailable | + +------+ + Encounter Details +--------+ + + + + | Date | Type | Department | Care Team | Description | +--------+ + + + + | 10/25/ | Hospital | [facility] | | | | 1992 | Encounter | MED CTR XRAY [address] | | | | | | [address] | | | | | | [place] [address] | | | | | | [phone] | | | +--------+ + + + [...] 08/26/ | Office | Gastroenterology | [facility] | | 2019 | Visit | | RAJAN [address] | | | | | | [address] | | | | | | [place] | | | | | | [address] | | | | | | | | +--------+---------+ + + + documented as of this encounter Visit Diagnoses Not on filedocumented in this encounter"
--- OUTSIDE RECORDS SUMMARY | ~2019-08-21 | XMS | Encounter Summary ---
Demographics + + + | Address | [address] | | | [place] [address] | + + + | Home Phone [...] | [facility] | | | and [...] Providers + +------+ + | Care Manager Medicaid Name | Role | Phone | + +------+ + PCP | Unavailable | + +------+ + Encounter Details +--------+ + + + + | Date | Type | Department | Care Team | Description | +--------+ + + + + | 05/15/ | Hospital | [facility] | | | | 1997 | Encounter | MED CTR GENERIC OP | | | | | | CONV DEPT [address] | | | | | | [address], | | | | | | [place] [address] | | | | | | [phone] | | | +--------+ + + + [...] | 08/26/ | Office | Gastroenterology | [facility] | | | 2019 | Visit | | RAJAN Ramirez [address] | | | | | | [address] | | | | | | [place] | | | | | | [id number] | | | | | | | | +--------+---------+ + + + documented as of this encounter Visit Diagnoses Not on filedocumented in this encounter"
--- OUTSIDE RECORDS SUMMARY | ~2019-08-21 | XMS | Encounter Summary ---
Demographics + + + | Address | [address] | | | [place] [address] | + + + | Home Phone | | + + + | Preferred Language | Unknown | + + + | Marital Status | | + + + | Gnosticism Affiliation | 1077 | + + + | Race | Unknown | + + + | Ethnic Group | Unknown | + + + Author + + + | Author | [facility] | | | and Vladislavana | + + + | Organization | [facility] | | [...] Providers + +------+ + | Care Systems Integration Engineer Name | Role | Phone | + +------+ + | Hilary Chowdhury PA-C | PCP | | + +------+ + Reason for Visit +--------+ + | Reason | Comments | +--------+ + | LABS | | +--------+ + Encounter Details +--------+ + + + + | Date | Type | Department | Care Team | Description | +--------+ + + + + | 06/23/ | Telephone | [facility] [place] | [place], | LABS | | 2019 | | GASTROENTEROLOGY | [address]JAN [address] | | | | | [address] [place] | [place] | | | | | [address] [place], [place] | [place], [place] | | | | | [address] | [address] | | | | | [phone] | | | +--------+ + + + [...] | 08/26/ | Office | Gastroenterology | [facility], | | | 2019 | Visit | | RAJAN Ramirez [address] | | | | | | [address] | | | | | | [place] | | | | | | [address] | | | | | | | | +--------+---------+ + + + documented as of this encounter Visit Diagnoses Not on filedocumented in this encounter"
--- OUTSIDE RECORDS SUMMARY | ~2019-08-21 | XMS | Encounter Summary ---
Demographics + + + | Address | [address] | | | [place] [address] | + + + | Home Phone [...] + | Organization | [facility] [place] | [...] Team Providers + +------+ + | Care Cardiology Consultant Name | Role | Phone | + +------+ + PCP | Unavailable | + +------+ + Encounter Details +--------+ + + + + | Date | Type | Department | Care Team | Description | +--------+ + + + + | 09/13/ | Hospital | [facility] | | | | 1992 - | Encounter | MED CTR GENERIC PSY | | | | | | CONV DEPT [address] | | | | 09/26/ | | [address], | | | | 1993 | | [place] [address] | | | | | | [phone] | | | +--------+ + + + [...] | 08/26/ | Office | Gastroenterology | [facility], | | | 2019 | Visit | | RAJAN Ramirez [address] | | | | | | [address] | | | | | | [place] | | | | | | [address] | | | | | | | | +--------+---------+ + + + documented as of this encounter Visit Diagnoses Not on filedocumented in this encounter"
--- OUTSIDE RECORDS SUMMARY | ~2019-08-21 | XMS | Encounter Summary ---
Demographics + + + | Address | [address] | | | [place] [address] | + + + | Home Phone | | + + + | Preferred Language | Unknown | + + + | Marital Status | | + + + | Judaism Affiliation | 1077 | + + + | Race | Unknown | + + + | Ethnic Group | Unknown | + + + Author + + + | Author | [facility] [place] | | | and Vladislavana | + + + | Organization | [facility] | | [...] Providers + +------+ + | Care Distribution Warehouse Manager Name | Role | Phone | + +------+ + PCP | Unavailable | + +------+ + Encounter Details +--------+ + + + + | Date | Type | Department | Care Team | Description | +--------+ + + + + | 09/26/ | Hospital | [facility] | | | | 1997 | Encounter | MED CTR XRAY [address] | | | | | | [address] | | | | | | [place] [address] | | | | | | [phone] | | | +--------+ + + + [...] | 08/26/ | Office | Gastroenterology | [facility] | | 2019 | Visit | | RAJAN Ramirez [address] | | | | | | [address] | | | | | | [place] | | | | | | [address] | | | | | | | | +--------+---------+ + + + documented as of this encounter Visit Diagnoses Not on filedocumented in this encounter"
--- OUTSIDE RECORDS SUMMARY | ~2019-08-21 | XMS | Encounter Summary ---
Demographics + + + | Address | [address] | | | [place] [address] | + + + | Home Phone | | + + + | Preferred Language | Unknown | + + + | Marital Status | Single | + + + | Yarsanism Affiliation | Unknown | + + + | Race | White | + + + | Ethnic Group | Not or | + + + Author + + + | Author | [facility] | + + + | Organization | [facility] | + + + | Address | [...] Providers + +------+ + | Care Human Resource Consultant Name | Role | Phone | [...] + + | 08/04/ | Abstract | [facility] | [place], | Medical Records | | 2019 | | [facility] at [facility] [address] | MD [address] | Review | | | | RON Lee | [facility] | | | | | Mailcode: Center | [place], [place] | | | | | [facility] and | [address] | | | | | [facility] | [phone] | | | | | [place], [place] | | | | | | [address] | | | | | | [phone] | | | +--------+ + + + [...] | | 2019 | Visit | | [address] | | | | | | [place] | | | | | | [place], [place] | | | | | | [address] | | | | | | [phone] | | | | | | | | +--------+---------+ + + + documented as of this encounter Visit Diagnoses Not on filedocumented in this encounter"
--- OUTSIDE RECORDS SUMMARY | ~2019-08-21 | XMS | Encounter Summary ---
Demographics + + + | Address | [address] | | | [place] [address] | + + + | Home Phone | | + + + | Preferred Language | Unknown | + + + | Marital Status | Single | + + + | Jewish Affiliation | Unknown | + + + | Race | White | + + + | Ethnic Group | Not or | + + + Author + + + | Author | [facility] | + + + | Organization | [facility] | + + + | [...] Team Providers + +------+ + | Care Account Executive Trainee Name | Role | Phone | + [...] | | | | RON Lee | [facility] | | | | | Mailcode: Center | [place], [place] | | | | | [facility] and | [address] | | | | | [facility] | [phone] | | | | | [place], [place] | | | | | | [address] | | | | | | [phone] | | | +--------+ + + + [...] Quintana | | | | | | [place], [place] | | | | | | [address] | | | | | | [phone] | | | | | | | | +--------+---------+ + + + documented as of this encounter Visit Diagnoses Not on filedocumented in this encounter"
--- OUTSIDE RECORDS SUMMARY | ~2019-08-21 | XMS | Encounter Summary ---
Demographics + + + | Address | [address] | | | [place] [address] | + + + | Home Phone [...] | [facility] [place] | | [...] Team Providers + +------+ + | Care Tower Air Traffic Control Specialist Name | Role | Phone | + +------+ + PCP | Unavailable | + +------+ + Encounter Details +--------+ + + + + | Date | Type | Department | Care Team | Description | +--------+ + + + + | 02/05/ | Hospital | [facility] | | | | 1997 | Encounter | MED CTR EMERGENCY | | | | | | CENTER [address] | | | | | | [place] | | | | | | [address] | | | | | | [phone] | | | +--------+ + + + [...] | 08/26/ | Office | Gastroenterology | [facility] | | | 2019 | Visit | | RAJAN Ramirez [address] | | | | | | [address] | | | | | | [place] | | | | | | [address] | | | | | | | | +--------+---------+ + + + documented as of this encounter Visit Diagnoses Not on filedocumented in this encounter"
--- OUTSIDE RECORDS SUMMARY | ~2019-08-21 | XMS | Encounter Summary ---
Demographics + + + | Address | [address] | | | [place] [address] | + + + | Home Phone | | + + + | Preferred Language | Unknown | + + + | Marital Status | | + + + | Sabianism Affiliation | 1077 | + + + | Race | Unknown | + + + | Ethnic Group | Unknown | + + + Author + + + | Author | [facility] [place] | | | and Vladislavana | + + + | Organization | [facility] | | | and [...] Team Providers + +------+ + | Care Health Practice Manager Name | Role | Phone | + +------+ + PCP | Unavailable | + +------+ + Encounter Details +--------+ + + + + | Date | Type | Department | Care Team | Description | +--------+ + + + + | 06/15/ | Hospital | [facility] | | | | 1993 | Encounter | MED CTR EMERGENCY | | | | | | CENTER [address] | | | | | | [place] | | | | | | [address] | | | | | | [phone] | | | +--------+ + + + [...] | 08/26/ | Office | Gastroenterology | [facility] | | | 2019 | Visit | | RAJAN Ramirez [address] | | | | | | [address] | | | | | | [place] | | | | | | [address] | | | | | | | | +--------+---------+ + + + documented as of this encounter Visit Diagnoses Not on filedocumented in this encounter"
--- OUTSIDE RECORDS SUMMARY | ~2019-08-21 | XMS | Encounter Summary ---
Demographics + + + | Address | [address] | | | [place] [address] | + + + | Home Phone | | + + + | Preferred Language | Unknown | + + + | Marital Status | | + + + | Sikh Affiliation | 1077 | + + + | Race | Unknown | + + + | Ethnic Group | Unknown | + + + Author + + + | Author | [facility] | | | and Vladislavana | + + + | Organization | [facility] [...] Team Providers + +------+ + | Care Sleep Tech Name | Role | Phone | + +------+ + PCP | Unavailable | + +------+ + Encounter Details +--------+ + + + + | Date | Type | Department | Care Team | Description | +--------+ + + + + | 06/11/ | Hospital | [facility] | | | | 1992 | Encounter | MED CTR XRAY [address] | | | | | | [address] | | | | | | [place] [address] | | | | | | [phone] | | | +--------+ + + + [...] 08/26/ | Office | Gastroenterology | [facility] | | 2019 | Visit | | RAJAN Ramirez [address] | | | | | | [address] | | | | | | [place] | | | | | | [address] | | | | | | | | +--------+---------+ + + + documented as of this encounter Visit Diagnoses Not on filedocumented in this encounter"
--- OUTSIDE RECORDS SUMMARY | ~2019-08-21 | XMS | Encounter Summary ---
Demographics + + + | Address | [address] | | | [place] [address] | + + + | Home Phone | | + + + | Preferred Language | Unknown | + + + | Marital Status | | + + + | Anabaptist Affiliation | 1077 | + + + | Race | Unknown | + + + | Ethnic Group | Unknown | + + + Author + + + | Author | [facility] | | | and Vladislavana | + + + | Organization | [facility] | | | and [...] Providers + +------+ + | Care Production Coordinator Name | Role | Phone | + +------+ + PCP | Unavailable | + +------+ + Encounter Details +--------+ + + + + | Date | Type | Department | Care Team | Description | +--------+ + + + + | 12/23/ | Hospital | [facility] | | | | 1994 | Encounter | MED CTR EMERGENCY | | | | | | CENTER [address] | | | | | | [place] | | | | | | [address] | | | | | | [phone] | | | +--------+ + + + [...] | 08/26/ | Office | Gastroenterology | [facility] | | | 2019 | Visit | | RAJAN Ramirez [address] | | | | | | [address] | | | | | | [place] | | | | | | [address] | | | | | | | | +--------+---------+ + + + documented as of this encounter Visit Diagnoses Not on filedocumented in this encounter"
--- OUTSIDE RECORDS SUMMARY | ~2019-08-21 | XMS | Clinical Summary ---
Demographics + + + | Address | [address] | | | [place] [address] | + + + | Home Phone [...] + | Organization | [facility] | | | and Vladisl[place]ana [...] Team Providers + +------+ + | Care Pig Handler Name | Role | Phone | + [...] automatically from request for surgery | | [id number] | + + + + + | Unintentional weight loss | 06/30/2019 | + + + + + | Overview: Added automatically from request for surgery | | [id number] | + + + + + | Abdominal pain, generalized | 06/30/2019 | + + + + + | Overview: Added automatically from request for surgery | | [id number] | + + + + + | [...] | 06/23/ | Telephone | Gastroenterology | [facility], | LABS | | 2018 | | | RAJAN Ramirez | | +--------+ + + + + | 06/08/ | Office | Gastroenterology | [facility], | Diarrhea, | | 2018 | Visit [...] | 08/26/ | Office | Gastroenterology | [facility] | | 2019 | Visit | | RAJAN Ramirez [address] | | | | | | [address] | | | | | | [place] | | | | | | [address] | | | | | | | [...] | [employer]ATION | | 07/05/2019 10:17 AMMRN: [id number] #: [id number] of | | | : 1950Admit Type: AmbulatoryAge: 68Room: Endo Room 2Gender: | | | FemaleNote Status: FinalizedAttending MD: MAGNUS SMITH , | | | MDProcedure: ColonoscopyIndications: Chronic | | | diarrhea, Rectal painProviders: MAGNUS SMITH MD, | | | Tova Yuen RN, Brisa Olmedo RN, | | | Loni Arambula, Cardboard Cutter, Tc Soto, TechnicianReferring MD: | | | [...] | preparation was evaluated using the BBPS ([place] Bowel | | | Preparation Scale) with [...] Scope In: 10:33:01 AMScope Out: 11:02:11 AM [facility] | | | [facility], [address] [place] [address] | | | [phone] | | | - Biopsies were taken [...] Out: 11:02:11 AM | | | [facility], [address] [place] | | | [id number] | | + + ----+ + +---------+ [...] + | Colonoscopy | See Full Report~ [facility] | | | | | | Dr. [...] component was | | | performed by [address] [address] | | | (Neurophysiology Tech: Lurdes Saul MD; CLIA# [id number]). Professional | | | [facility] | | | [address] [address] | | | (Neurophysiology Tech: Thom Bright M.D.; CLIA#: | | | [id number]). Diagnostician: Thom Bright MD | | | [...] +--------+ +---------+--------+ | MEDICARE | MEDICA | [id number] | 05/23/19 | [phone] | | Medica | | | RE | | 99-Pre | 5 | | re | | | PART A | | sent | | | | | | AND B | | | | | | + +--------+ +--------+ +---------+--------+ | | CHAMPV | [id number] | 04/29/20 | [phone] | | Indemn [...] | | al/Fam | | 1950 | [phone] | [place] [address] | | | johnathan | | | 8 (Home) | | + +--------+ +--------+ + + Advance Directives + + + + + | Type | Date Recorded | Patient | Explanation | | | | Golf Teacher | | + + + + + | Power of | | | | | Bmet | | | | + + + + + | Advance | 07/05/2019 | | | | Directive | 7:57 AM | | | + + + + +
--- OUTSIDE RECORDS SUMMARY | ~2019-08-21 | XMS | Encounter Summary ---
Demographics + + + | Address | [address] | | | [place] [address] | + + + | Home Phone | | + + + | Preferred Language | Unknown | + + + | Marital Status | | + + + | Druze Affiliation | 1077 | + + + | Race | Unknown | + + + | Ethnic Group | Unknown | + + + Author + + + | Author | [facility] | | | and Vladisl[place]ana | + + + | Organization | [facility] | | | and [...] Team Providers + +------+ + | Care Engagement Quality Consultant Name | Role | Phone | + +------+ + PCP | Unavailable | + +------+ + Encounter Details +--------+ + + + + | Date | Type | Department | Care Team | Description | +--------+ + + + + | 02/05/ | Hospital | [facility] | | | | 1997 - | Encounter | MED CTR GENERIC PSY | | | | | | CONV DEPT [address] | | | | 02/09/ | | [address], | | | | 1997 | | [place] [address] | | | | | | [phone] | | | +--------+ + + + [...] | Office | Gastroenterology | [facility], | | | 2019 | Visit | | RAJAN Ramirez [address] | | | | | | [address] | | | | | | [place] | | | | | | [address] | | | | | | | | +--------+---------+ + + + documented as of this encounter Visit Diagnoses Not on filedocumented in this encounter"
--- OUTSIDE RECORDS SUMMARY | ~2019-08-21 | XMS | Encounter Summary ---
Demographics + + + | Address | [address] | | | [place] [address] | + + + | Home Phone | | + + + | Preferred Language | Unknown | + + + | Marital Status | | + + + | Hinduism Affiliation | 1077 | + + + | Race | Unknown | + + + | Ethnic Group | Unknown | + + + Author + + + | Author | [facility] | | | and [place]isl[place] | + + + | Organization | [facility] | | [...] Team Providers + +------+ + | Care Tool Liaison Name | Role | Phone | + +------+ + PCP | Unavailable | + +------+ + Encounter Details +--------+ + + + + | Date | Type | Department | Care Team | Description | +--------+ + + + + | 06/13/ | Hospital | [facility] | | | | 1993 | Encounter | MED CTR LABORATORY | | | | | | [address] | | | | | | [place] | | | | | | [address] | | | | | | [phone] | | | +--------+ + + + [...] | 08/26/ | Office | Gastroenterology | [facility] | | | 2019 | Visit | | RAJAN Ramirez [address] | | | | | | [address] | | | | | | [place] | | | | | | [address] | | | | | | | | +--------+---------+ + + + documented as of this encounter Visit Diagnoses Not on filedocumented in this encounter"
--- OUTSIDE RECORDS SUMMARY | ~2019-08-21 | XMS | Encounter Summary ---
Demographics + + + | Address | [address] | | | [place] [address] | + + + | Home Phone [...] + + + | Organization | and [facility] | | | and [place] [...] Team Providers + +------+ + | Care Skin Diving Teacher Name | Role | Phone | + +------+ + PCP | Unavailable | + +------+ + Encounter Details +--------+ + + + + | Date | Type | Department | Care Team | Description | +--------+ + + + + | 08/14/ | Hospital | [facility] | | | | 1996 | Encounter | MED CTR EMERGENCY | | | | | | CENTER [address] | | | | | | [place] | | | | | | [address] | | | | | | [phone] | | | +--------+ + + + [...] | 08/26/ | Office | Gastroenterology | [facility] | | | 2019 | Visit | | RAJAN [address] | | | | | | [address] | | | | | | [place] | | | | | | [address] | | | | | | | | +--------+---------+ + + + documented as of this encounter Visit Diagnoses Not on filedocumented in this encounter"
--- OUTSIDE RECORDS SUMMARY | ~2019-08-21 | XMS | Encounter Summary ---
Demographics + + + | Address | [address] | | | [place] [address] | + + + | Home Phone | | + + + | Preferred Language | Unknown | + + + | Marital Status | Single | + + + | Mandaeism Affiliation | Unknown | + + + | Race | White | + + + | Ethnic Group | Not or | + + + Author + + + | Author | [facility] | + + + | Organization | [facility] | + + + | [...] Team Providers + +------+ + | Care Haunted History Tour Guide Name | Role | Phone | [...] | | | diarrhea | medicine | [facility] | | | | | | [address] | | | | | | [place] | [address]aling, | | | | | | [address] | [address] | | | | | | [place], | [place], [place] | | | | | | [place] [address] | [address] | | | | | | Phone: | Phone: | | | | | | [phone] | [phone] | | | | | | Fax: | Fax: | | | | | | [phone] | [phone] | +--------+--------+ + + + + Encounter [...] | | | | Mailcode: Center | [place], [place] | | | | | for Health and | [address] | | | | | [facility] | [phone] | | | | | [place], [place] | | | | | | [address] | | | | | | [phone] | | | +--------+---------+ + + + [...] different fro m the original. Gastroenterology Clinic [facility] ~ Initial Consultation / New Patient Evaluation Referring Physician: Hilary Chowdhury Chief Complaint: Chief Complaint Patient presents with New patient consultation Patient Identification: Corrina Nixon is a 68 y.o. female with a history of hypothyroi dism, major depressive disorder and remote anorexia nervosa who presents to [facility] Gast[facility]ology Clinic for evaluation and treatment [...] cancer, or other issues. ~Huy Tello MD [facility] ESOPHAGEAL MOTILITY STUDY 02/22/2015 (presume some abnormality though I have leonora records ) GASTRIC FUNDOPLICATION 2015 GASTRIC MOTILITY STUDY 12/29/2017 Gastric emptying study. Normal Study. ~Maverick Ulrich MD [facility] HERNIA REPAIR 01/2016 Laparoscopic repair of paraesophageal hernia, Heller myotomy, Liza gastroplasty, partial fundoplication Dr. Mclain Swanstrom NECK SURGERY 1995 UPPER GASTROINTESTINAL ENDOSCOPY 12/11/2016 IMPRESSION: Mildly disordered esophageal motility. Small sliding type hiatal hernia. Modera te sized diverticulum arising from the horizontal portion of the duodenum. ~Ganga Riley [facility] UPPER GASTROINTESTINAL ENDOSCOPY 05/13/2017 Impression: No significant [...] file Gets together: Not on file Attends church service: Not on file Active member of [...] MD MS GI and Hepatology Fellow Pager [phone] Associated attestation - Ronald Turk MD - [...] | 2019 | Visit | | [address] | | | | | | [facility] | | | | | | [place], [place] | | | | | | [address] | | | | | | [phone] | | | | | | | | +--------+---------+ + + + documented as of this encounter Visit Diagnoses + + | Diagnosis | + + | Chronic abdominal pain - Primary Abdominal pain, unspecified site | + + | Chronic diarrhea Diarrhea | + + documented in this encounter
--- OUTSIDE RECORDS SUMMARY | ~2019-08-21 | XMS | Encounter Summary ---
Demographics + + + | Address | [address] | | | [place] [address] | + + + | Home Phone | | + + + | Preferred Language | Unknown | + + + | Marital Status | Single | + + + | Roman Catholic Affiliation | Unknown | + + + | Race | White | + + + | Ethnic Group | Not or | + + + Author + + + | Author | [facility] | + + + | Organization | [facility] | + + + | Address | [...] Team Providers + +------+ + | Care Sports Equipment Racker Name | Role | Phone | + [...] Closed | | Gastroenterol | Diagnoses | [place], | [facility] Endo | | | | ogy | Dysphagia | MD Jacquelin | [address] | | | | | Procedures | [address] | [address] | | | | | CONSULT TO | [address] | [address] | | | | | GI PROCEDURE | [address] | Mailcode: | | | | | UNIT: | [place], [place] | [address] | | | | | ESOPHAGEAL | [address] | [place] | | | | | MANOMETRY | Phone: | [address] | | | | | | [phone] | [place], | | | | | | Fax: | [place] [address] | | | | | | [phone] | Phone: | | | | | | | [phone] | | | | | | | Fax: | | | | | | | [phone] | +--------+--------+ + + + + Encounter Details +--------+ + + + + | Date | Type | Department | Care Team | Description | +--------+ + + + + | 02/21/ | Hospital | [facility] | Nurse, G[address] | | | 2015 | Encounter | [place] [address] | [facility] | | | | | Jarred Lee Mailcode: | Road [place], [place] | | | | | [address] | [address] | | | | | Health and Healing, | | | | | | Building [address] | | | | | | [place], [place] | | | | | | [address] | | | | | | [phone] | | | +--------+ + + + [...] Rd | | | | | | [place], [place] | | | | | | [address] | | | | | | [phone] | | | | | | | [...]
--- OUTSIDE RECORDS SUMMARY | ~2019-08-21 | XMS | Encounter Summary ---
Demographics + + + | Address | [address] | | | [place] [address] | + + + | Home Phone | | + + + | Preferred Language | Unknown | + + + | Marital Status | | + + + | Gnosticist Affiliation | 1077 | + + + | Race | Unknown | + + + | Ethnic Group | Unknown | + + + Author + + + | Author | [facility] | | | and Vladislavana | + + + | Organization | [facility] | | | and [...] Team Providers + +------+ + | Care Environment Coordinator Name | Role | Phone | + +------+ + PCP | Unavailable | + +------+ + Encounter Details +--------+ + + + + | Date | Type | Department | Care Team | Description | +--------+ + + + + | 08/14/ | Hospital | [facility] | | | | 1991 | Encounter | MED CTR XRAY [address] | | | | | | [address] | | | | | | [place] [address] | | | | | | [phone] | | | +--------+ + + + [...] | 08/26/ | Office | Gastroenterology | [facility] | | 2019 | Visit | | RAJAN Ramirez [address] | | | | | | [address] | | | | | | [place] | | | | | | [address] | | | | | | | | +--------+---------+ + + + documented as of this encounter Visit Diagnoses Not on filedocumented in this encounter"
--- OUTSIDE RECORDS SUMMARY | ~2019-08-21 | XMS | Encounter Summary ---
Demographics + + + | Address | [address] | | | [place] [address] | + + + | Home Phone [...] Organization | [facility] | | | and Vladislavana | [...] Team Providers + +------+ + | Care Bicycle Rental Clerk Name | Role | Phone | + +------+ + PCP | Unavailable | + +------+ + Encounter Details +--------+ + + + + | Date | Type | Department | Care Team | Description | +--------+ + + + + | 07/17/ | Hospital | [facility] | | | | 1992 | Encounter | MED CTR LABORATORY | | | | | | [address] | | | | | | [place] | | | | | | [address] | | | | | | [phone] | | | +--------+ + + + [...] Office | Gastroenterology | [facility] | | | 2019 | Visit | | RAJAN Ramirez [address] | | | | | | [address] | | | | | | [place] | | | | | | [address] | | | | | | | | +--------+---------+ + + + documented as of this encounter Visit Diagnoses Not on filedocumented in this encounter"
--- OUTSIDE RECORDS SUMMARY | ~2019-08-21 | XMS | Encounter Summary ---
Demographics + + + | Address | [address] | | | [place] [address] | + + + | Home Phone [...] Organization | [facility] | [...] Team Providers + +------+ + | Care Imaging Center Manager Name | Role | Phone | + +------+ + PCP | Unavailable | + +------+ + Encounter Details +--------+ + + + + | Date | Type | Department | Care Team | Description | +--------+ + + + + | 12/23/ | Hospital | [facility] | | | | 1994 | Encounter | MED CTR EMERGENCY | | | | | | CENTER [address] | | | | | | [place] | | | | | | [address] | | | | | | [phone] | | | +--------+ + + + [...] | 08/26/ | Office | Gastroenterology | [facility] | | | 2019 | Visit | | RAJAN Ramirez [address] | | | | | | [address] | | | | | | [place] | | | | | | [id number] | | | | | | | | +--------+---------+ + + + documented as of this encounter Visit Diagnoses Not on filedocumented in this encounter"
--- OUTSIDE RECORDS SUMMARY | ~2019-08-21 | XMS | Encounter Summary ---
Demographics + + + | Address | [address] | | | [place] [address] | + + + | Home Phone [...] | Organization | [facility] | | | and Vladislavana | + + + | Address | Unknown | + + + | Phone | Unavailable | + + + Support + + +---------+ + | Name | Relationship | Address | Phone | + + +---------+ + | Devonte Nxion | ECON | Unknown | | + + +---------+ + Care Team Providers + +------+ + | Care Reed Cleaner Name | Role | Phone | + +------+ + | Valentine Oh MD | PCP | | + +------+ + Encounter Details +--------+ + + + + | Date | Type | Department | Care Team | Description | +--------+ + + + + | 01/23/ | [facility] | [facility] | Jose Borrego MD | | | 2008 | Encounter | MED CTR GENERIC OP | [address] | | | | | CONV DEPT [address] | [address] [place] | | | | | [place] [place], | [address] | | | | | [place] [address] | | | | | | [phone] | | | +--------+ + + + [...] [place] | | | | | | [address] | | | | | | | | +--------+---------+ + + + documented as of this encounter Visit Diagnoses Not on filedocumented in this encounter"
--- OUTSIDE RECORDS SUMMARY | ~2019-08-21 | XMS | Encounter Summary ---
Demographics + + + | Address | [address] | | | [place] [address] | + + + | Home Phone | | + + + | Preferred Language | Unknown | + + + | Marital Status | | + + + | Yazidism Affiliation | 1077 | + + + | Race | Unknown | + + + | Ethnic Group | Unknown | + + + Author + + + | Author | [facility] | | | and Vladislavana | + + + | Organization | [facility] | [...] Team Providers + +------+ + | Care Exercise Physiology Professor Name | Role | Phone | + +------+ + | Valentine Oh MD | PCP | | + +------+ + Encounter Details +--------+ + + + + | Date | Type | Department | Care Team | Description | +--------+ + + + + | 04/17/ | Hospital | [facility] | Huy Daniels MD | | | 1999 - | Encounter | [facility] | Rafael Valladares, | | | | | GENERIC OP CONV DEPT | [address] | | | 05/12/ | | [address] | [place] | | | 1999 | | [place] | [address] | | | | | [address] | | | | | | [phone] | | | +--------+ + + + [...] | 08/26/ | Office | Gastroenterology | [facility], | | | 2019 | Visit | | RAJAN [address] | | | | | | [address] | | | | | | [place] | | | | | | [address] | | | | | | | | +--------+---------+ + + + documented as of this encounter Visit Diagnoses Not on filedocumented in this encounter"
--- OUTSIDE RECORDS SUMMARY | ~2019-08-21 | XMS | Encounter Summary ---
Demographics + + + | Address | [address] | | | [place] [address] | + + + | Home Phone | | + + + | Preferred Language | Unknown | + + + | Marital Status | | + + + | Restoration Affiliation | 1077 | + + + | Race | Unknown | + + + | Ethnic Group | Unknown | + + + Author + + + | Author | [facility] | | | and Vladislavana | + + + | Organization | [facility] | | | and Vladislavana [...] Providers + +------+ + | Care Sales Account Executive Name | Role | Phone | + +------+ + PCP | Unavailable | + +------+ + Encounter Details +--------+ + + + + | Date | Type | Department | Care Team | Description | +--------+ + + + + | 06/15/ | Hospital | [facility] | | | | 1993 | Encounter | MED CTR EMERGENCY | | | | | | CENTER [address] | | | | | | [place] | | | | | | [address] | | | | | | [phone] | | | +--------+ + + + [...] [place] | | | | | | [id number] | | | | | | | | +--------+---------+ + + + documented as of this encounter Visit Diagnoses Not on filedocumented in this encounter"
--- OUTSIDE RECORDS SUMMARY | ~2019-08-21 | XMS | Encounter Summary ---
Demographics + + + | Address | [address] | | | [place] [address] | + + + | Home Phone | | + + + | Preferred Language | Unknown | + + + | Marital Status | | + + + | Synagogue Affiliation | 1077 | + + + | Race | Unknown | + + + | Ethnic Group | Unknown | + + + Author + + + | Author | [facility] | | | and Vladislavana | + + + | Organization | [facility] | | | and [place]isl[place]ana | [...] + +------+ + | Care Human Resource Assistant Name | Role | Phone | + +------+ + PCP | Unavailable | + +------+ + Encounter Details +--------+ + + + + | Date | Type | Department | Care Team | Description | +--------+ + + + + | 06/21/ | Hospital | [facility] | | | | 1992 | Encounter | MED CTR XRAY [address] | | | | | | [address] | | | | | | [place] [address] | | | | | | [phone] | | | +--------+ + + + [...] | 08/26/ | Office | Gastroenterology | [facility] | | 2019 | Visit | | RAJAN Ramirez [address] | | | | | | [address] | | | | | | [place] | | | | | | [address] | | | | | | | | +--------+---------+ + + + documented as of this encounter Visit Diagnoses Not on filedocumented in this encounter"
--- OUTSIDE RECORDS SUMMARY | ~2019-08-21 | XMS | Encounter Summary ---
Demographics + + + | Address | [address] | | | [place] [address] | + + + | Home Phone | | + + + | Preferred Language | Unknown | + + + | Marital Status | | + + + | Advent Affiliation | 1077 | + + + | Race | Unknown | + + + | Ethnic Group | Unknown | + + + Author + + + | Author | [facility] | | | and Vladislavana | + + + | Organization | [facility] | | | and Vladislavana [...] Team Providers + +------+ + | Care Yarn Texturing Machine Operator Name | Role | Phone | + +------+ + | Valentine Oh MD | PCP | | + +------+ + Encounter Details +--------+ + + + + | Date | Type | Department | Care Team | Description | +--------+ + + + + | 01/13/ | Hospital | [facility] | Adriano, | | | 2001 - | Encounter | [facility] | MD [address] | | | | | GENERIC OP CONV DEPT | [address] | | | 01/14/ | | [address] | [place] | | | 2001 | | [place] | [address] | | | | | [address] | [phone] | | | | | [phone] | | | +--------+ + + + [...] | 08/26/ | Office | Gastroenterology | [facility], | | | 2019 | Visit | | Ashley, PATROL OFFICER [address] | | | | | | [address] | | | | | | [place] | | | | | | [address] | | | | | | | | +--------+---------+ + + + documented as of this encounter Visit Diagnoses Not on filedocumented in this encounter"
--- OUTSIDE RECORDS SUMMARY | ~2019-08-21 | XMS | Encounter Summary ---
Demographics + + + | Address | [address] | | | [place] [address] | + + + | Home Phone [...] Organization | [facility] | [...] Team Providers + +------+ + | Care Employment Interviewer Name | Role | Phone | + +------+ + | Valentine Oh MD | PCP | | + +------+ + Encounter Details +--------+ + + + + | Date | Type | Department | Care Team | Description | +--------+ + + + + | 06/02/ | Hospital | [facility] | Adriano, | | | 2001 | Encounter | [facility] | MD [address] | | | | | GENERIC OP CONV DEPT | [address] | | | | | [address] | [place], [place] | | | | | [place], [place] | [address] | | | | | [address] | [phone] | | | | | [phone] | | | +--------+ + + + [...] 08/26/ | Office | Gastroenterology | [facility], | | | 2019 | Visit | | RAJAN Ramirez [address] | | | | | | [address] | | | | | | [place] | | | | | | [address] | | | | | | | | +--------+---------+ + + + documented as of this encounter Visit Diagnoses Not on filedocumented in this encounter"
--- OUTSIDE RECORDS SUMMARY | ~2019-08-21 | XMS | Encounter Summary ---
Demographics + + + | Address | [address] | | | [place] [address] | + + + | Home Phone | | + + + | Preferred Language | Unknown | + + + | Marital Status | | + + + | Religion Affiliation | 1077 | + + + | Race | Unknown | + + + | Ethnic Group | Unknown | + + + Author + + + | Author | [facility] | | | and Vladislavana | + + + | Organization | [facility] | | | and Vladislavana [...] Providers + +------+ + | Care Account Contact Associate Name | Role | Phone | + +------+ + PCP | Unavailable | + +------+ + Encounter Details +--------+ + + + + | Date | Type | Department | Care Team | Description | +--------+ + + + + | 06/21/ | Hospital | [facility] | | | | 1992 | Encounter | MED CTR XRAY [address] | | | | | | [address] | | | | | | [place] [address] | | | | | | [phone] | | | +--------+ + + + [...] | Office | Gastroenterology | [facility] | | 2019 | Visit | | RAJAN [address] | | | | | | [address] | | | | | | [place] | | | | | | [address] | | | | | | | | +--------+---------+ + + + documented as of this encounter Visit Diagnoses Not on filedocumented in this encounter"
--- OUTSIDE RECORDS SUMMARY | ~2019-08-21 | XMS | Encounter Summary ---
Demographics + + + | Address | [address] | | | [place] [address] | + + + | Home Phone | | + + + | Preferred Language | Unknown | + + + | Marital Status | | + + + | Muslim Affiliation | 1077 | + + + | Race | Unknown | + + + | Ethnic Group | Unknown | + + + Author + + + | Author | [facility] | | | and Vladislavana | + + + | Organization | [facility] | | | and [...] Team Providers + +------+ + | Care Sleever Name | Role | Phone | + +------+ + PCP | Unavailable | + +------+ + Encounter Details +--------+ + + + + | Date | Type | Department | Care Team | Description | +--------+ + + + + | 01/05/ | Hospital | [facility] | | | | 1996 | Encounter | MED CTR EMERGENCY | | | | | | CENTER [address] | | | | | | [place] | | | | | | [address] | | | | | | [phone] | | | +--------+ + + + [...] 08/26/ | Office | Gastroenterology | [facility] | | | 2019 | Visit | | RAJAN [address] | | | | | | [address] | | | | | | [place] | | | | | | [address] | | | | | | | | +--------+---------+ + + + documented as of this encounter Visit Diagnoses Not on filedocumented in this encounter"
--- OUTSIDE RECORDS SUMMARY | ~2019-08-21 | XMS | Encounter Summary ---
Demographics + + + | Address | [address] | | | [place] [address] | + + + | Home Phone [...] Author + + + | Author | [facility] | + + + | Organization | [facility] | + + + | [...] Team Providers + +------+ + | Care Portfolio Administrator Name | Role | Phone | + [...] | | | | RON Lee | [facility] | | | | | Mailcode: Center | [place], [place] | | | | | [facility] and | [address] | | | | | [facility] [address] | [phone] | | | | | [place], [place] | | | | | | [address] | | | | | | [phone] | | | +--------+ + + + [...] | | 2019 | Visit | | [address] | | | | | | [place] | | | | | | [place], [place] | | | | | | [address] | | | | | | [phone] | | | | | | | | +--------+---------+ + + + documented as of this encounter Visit Diagnoses Not on filedocumented in this encounter"
--- OUTSIDE RECORDS SUMMARY | ~2019-08-21 | XMS | Encounter Summary ---
Demographics + + + | Address | [address] | | | [place] [address] | + + + | Home Phone | | + + + | Preferred Language | Unknown | + + + | Marital Status | | + + + | Restorationism Affiliation | 1077 | + + + | Race | Unknown | + + + | Ethnic Group | Unknown | + + + Author + + + | Author | [facility] | | | and Vladislavana | + + + | Organization | [facility] | | | and [...] Team Providers + +------+ + | Care Dough Catcher Name | Role | Phone | [...] | | | | | [place] [address] | | | | | | [phone] | | | +--------+ + + + [...] [place] | | | | | | [address] | | | | | | | | +--------+---------+ + + + documented as of this encounter Visit Diagnoses Not on filedocumented in this encounter"
--- OUTSIDE RECORDS SUMMARY | ~2019-08-21 | XMS | Encounter Summary ---
Demographics + + + | Address | [address] | | | [place] [address] | + + + | Home Phone | | + + + | Preferred Language | Unknown | + + + | Marital Status | | + + + | Quaker Affiliation | 1077 | + + + | Race | Unknown | + + + | Ethnic Group | Unknown | + + + Author + + + | Author | [facility] | | | and Vladislavana | + + + | Organization | [facility] | | | and Vladisl[place]ana [...] Team Providers + +------+ + | Care Guest Services Ambassador Name | Role | Phone | + [...] | | l weight | | [place] [address] | | | | | loss | | Phone: | | | | | Abdominal | | [phone] | | | | | pain, | | Fax: | | | | | generalized | | [phone] | | | | | Procedures | | | | | | | ID | | | | | | | COLONOSCOPY | | | | | | | FLX DX | | | | | | | W/COLLJ SPEC | | | | | | | WHEN PFRMD | | | | | | | ID | | | | | | | COLONOSCOPY | | | | | | | W/BIOPSY | | | | | | | SINGLE/MULTI | | | | | | | PLE ID | | | | | | | [...] + + | 07/05/ | Hospital | [facility] | Magnus Smith | Diarrhea, | | 2019 | Encounter | MED CTR MP INTRA OP | MD Huy [address] | unspecified type; | | | | [address] | [address] [place] | Unintentional weight | | | | [place], [place] | [place] [address] | loss; Abdominal | | | | [address] | [phone] | pain, generalized | | | | [phone] | | | +--------+ + + + [...] You can't be awakened Date Last Reviewed: 07/09/201619998961-0003 [employer] [address] [place] [address], [place] [address]. All righ ts reserved. This information is [...] 08/26/ | Office | Gastroenterology | [facility], | | | 2019 | Visit | | RAJAN [address] | | | | | | [address] | | | | | | [place] | | | | | | [address] | | | | | | | [...] | PROVATION | | 07/05/2019 10:17 AMMRN: [id number] #: [id number] of | | | : 1950Admit Type: AmbulatoryAge: 68Room: Endo Room 2Gender: | | | FemaleNote Status: FinalizedAttending MD: MAGNUS SMITH , | | | MDProcedure: ColonoscopyIndications: Chronic | | | diarrhea, Rectal painProviders: MAGNUS SMITH MD, | | | Tova Yuen RN, Brisa Olmedo RN, | | | Loni Arambula, Paste Worker, Tc Soto TechnicianReferring MD: | | | [...] | preparation was evaluated using the BBPS ([place] Bowel | | | Preparation Scale) [...] Scope In: 10:33:01 AMScope Out: 11:02:11 AM [facility] | | | [facility] [place] [address] | | | [phone] | | | - Biopsies were taken [...] |Scope Out: 11:02:11 AM | | | [facility] [place] [address] [place], [place] | | | [address] | | + + ----+ + +---------+ + + | Performing | Address | City/State/[facility] Cent[facility] | Phone Number | | [...] no significant diagnostic | | | abnormality. [facility]C2NR GROSS DESCRIPTION: Five specimens | | [...] component was | | | performed by [employer], [address] [place] [address] | | | (Fermenter: Lurdes Saul MD; CLIA# [id number]). Professional | | | interpretation was performed by [facility], [facility]. | | | [facility], [place] [address] | | | (Fermenter: Thom Bright M.D.; CLIA#: | | | [id number]). Diagnostician: Thom Bright MD | | | Pathologist Electronically Signed 07/06/2019 | | + + + + +---------+ + + | Performing | Address | City/State/[facility] Centercode | Phone Number | | Organization | | | | + +---------+ + + | [place] [facility] | | | | | [facility] | | | | + +---------+ + [...]
--- OUTSIDE RECORDS SUMMARY | ~2019-08-21 | XMS | Encounter Summary ---
Demographics + + + | Address | [address] | | | [place] [address] | + + + | Home Phone | | + + + | Preferred Language | Unknown | + + + | Marital Status | | + + + | Mandaen Affiliation | 1077 | + + + | Race | Unknown | + + + | Ethnic Group | Unknown | + + + Author + + + | Author | [facility] | | | and Vladislavana | + + + | Organization | [facility] [...] Team Providers + +------+ + | Care Blister Rust Eradicator Name | Role | Phone | + [...] | | | | [address] | [address] | | | | | [address] [place] | [place] [address] | | | | | [address] | | | | | | [phone] | | | +--------+ + + + [...] | 08/26/ | Office | Gastroenterology | [facility], | | | 2018 | Visit | | RAJAN Ramirez [address] | | | | | | [address] | | | | | | [place] | | | | | | [address] | | | | | | | [...]
--- OUTSIDE RECORDS SUMMARY | ~2019-08-21 | XMS | Encounter Summary ---
Demographics + + + | Address | [address] | | | [place] [address] | + + + | Home Phone | | + + + | Preferred Language | Unknown | + + + | Marital Status | Single | + + + | Mandaen Affiliation | Unknown | + + + | Race | White | + + + | Ethnic Group | Not or | + + + Author + + + | Author | [facility] | + + + | Organization | [facility] | + + + | Address [...] Team Providers + +------+ + | Care Geospatial Image Analyst Name | Role | Phone | [...] | | RON Lee | [address], | | | | | Mailcode: Center | [place] [address] | | | | | for [facility] and | [phone] | | | | | [facility] [address] | | | | | | [place], [place] | | | | | | [address] | | | | | | [phone] | | | +--------+ + + + [...] Rd | | | | | | [place], [place] | | | | | | [address] | | | | | | [phone] | | | | | | | | +--------+---------+ + + + documented as of this encounter Visit Diagnoses Not on filedocumented in this encounter"
--- OUTSIDE RECORDS SUMMARY | ~2019-08-21 | XMS | Encounter Summary ---
Demographics + + + | Address | [address] | | | [place] [address] | + + + | Home Phone [...] Organization | [facility] | | | and Vladislavana [...] Team Providers + +------+ + | Care Collector Name | Role | Phone | + +------+ + PCP | Unavailable | + +------+ + Encounter Details +--------+ + + + + | Date | Type | Department | Care Team | Description | +--------+ + + + + | 11/10/ | Hospital | [facility] | | | | 1993 - | Encounter | MED CTR GENERIC PSY | | | | | | CONV DEPT [address] | | | | 11/16/ | | [address], | | | | 1993 | | [place] [address] | | | | | | [phone] | | | +--------+ + + + [...] | 08/26/ | Office | Gastroenterology | [facility], | | | 2019 | Visit | | RAJAN Ramirez [address] | | | | | | [address] | | | | | | [place] | | | | | | [address] | | | | | | | | +--------+---------+ + + + documented as of this encounter Visit Diagnoses Not on filedocumented in this encounter"
--- OUTSIDE RECORDS SUMMARY | ~2019-08-21 | XMS | Encounter Summary ---
Demographics + + + | Address | [address] | | | [place] [address] | + + + | Home Phone | | + + + | Preferred Language | Unknown | + + + | Marital Status | | + + + | Jewish Affiliation | 1077 | + + + | Race | Unknown | + + + | Ethnic Group | Unknown | + + + Author + + + | Author | [facility] | | | and Vladislavana | + + + | Organization | [facility] | | | and Vladislavana [...] Providers + +------+ + | Care Tool Machinist Name | Role | Phone | + [...] | [address] [place] | [place], [address] | | | | | [address] [place], [place] | [place], [place] | | | | | [address] | [address] | | | | | [phone] | | | +--------+ + + + [...] 08/26/ | Office | Gastroenterology | [facility], | | | 2019 | Visit | | RAJAN Ramirez [address] | | | | | | [address] | | | | | | [place] | | | | | | [address] | | | | | | | | +--------+---------+ + + + documented as of this encounter Visit Diagnoses Not on filedocumented in this encounter"
--- OUTSIDE RECORDS SUMMARY | ~2019-08-21 | XMS | Encounter Summary ---
Demographics + + + | Address | [address] | | | [place] [address] | + + + | Home Phone | | + + + | Preferred Language | Unknown | + + + | Marital Status | | + + + | Restorationism Affiliation | 1077 | + + + | Race | Unknown | + + + | Ethnic Group | Unknown | + + + Author + + + | Author | [facility] | | | and Vladislavana | + + + | Organization | [facility] | | | and [...] Providers + +------+ + | Care Senior Ux Designer Name | Role | Phone | [...] | | | | [address] [facility] | [place] | | | | | [address] [place] | [place] [address] | | | | | [address] | | | | | | [phone] | | | +--------+ + + + [...] 08/26/ | Office | Gastroenterology | [facility], | | | 2019 | Visit | | RAJAN Ramirez [address] | | | | | | [address] | | | | | | [place] | | | | | | [address] | | | | | | | [...] + | Colonoscopy | See Full Report~ [facility] | | | | | | Dr. Fortune | | | | | Impression, | | | | | | External | | | | | + + + + + + documented in this encounter Visit Diagnoses Not on filedocumented in this encounter"
--- OUTSIDE RECORDS SUMMARY | ~2019-08-21 | XMS | Encounter Summary ---
Demographics + + + | Address | [address] | | | [place] [address] | + + + | Home Phone [...] + | Organization | [facility] | | [...] Team Providers + +------+ + | Care Sewer Hand Name | Role | Phone | + +------+ + PCP | Unavailable | + +------+ + Encounter Details +--------+ + + + + | Date | Type | Department | Care Team | Description | +--------+ + + + + | 07/14/ | Hospital | [facility] | | | | 1997 | Encounter | MED CTR GENERIC OP | | | | | | CONV DEPT [address] | | | | | | [address], | | | | | | [place] [address] | | | | | | [phone] | | | +--------+ + + + [...] 08/26/ | Office | Gastroenterology | [facility] | | | 2019 | Visit | | RAJAN Ramirez [address] | | | | | | [address] | | | | | | [place] | | | | | | [address] | | | | | | | | +--------+---------+ + + + documented as of this encounter Visit Diagnoses Not on filedocumented in this encounter"
--- OUTSIDE RECORDS SUMMARY | ~2019-08-21 | XMS | Encounter Summary ---
Demographics + + + | Address | [address] | | | [place] [address] | + + + | Home Phone | | + + + | Preferred Language | Unknown | + + + | Marital Status | | + + + | Quaker Affiliation | 1077 | + + + | Race | Unknown | + + + | Ethnic Group | Unknown | + + + Author + + + | Author | [facility] | | | and Vladislavana | + + + | Organization | [facility] | | [...] Team Providers + +------+ + | Care Glass Installer Name | Role | Phone | [...] | | | | [address] [facility] | [place] | | | | | [address] [place] | [place] [address] | | | | | [address] | | | | | | [phone] | | | +--------+ + + + [...] [place] | | | | | | [address] | | | | | | | [...] + | Colonoscopy | See Full Report~ [facility] | | | | | | Dr. Fortune | | | | | Impression, | | | | | | External | | | | | + + + + + + documented in this encounter Visit Diagnoses Not on filedocumented in this encounter"
--- OUTSIDE RECORDS SUMMARY | ~2019-08-21 | XMS | Encounter Summary ---
Demographics + + + | Address | [address] | | | [place] [address] | + + + | Home Phone | | + + + | Preferred Language | Unknown | + + + | Marital Status | Single | + + + | Confucianism Affiliation | Unknown | + + + | Race | White | + + + | Ethnic Group | Not or | + + + Author + + + | Author | [facility] | + + + | Organization | [facility] | + + + | Address [...] Team Providers + +------+ + | Care Double Bottom Driver Name | Role | Phone | [...] | | [address] | [address], | | | | | Mailcode: Center | [place] [address] | | | | | for [facility] and | [phone] | | | | | [facility] [address] | | | | | | [place], [place] | | | | | | [address] | | | | | | [phone] | | | +--------+ + + + [...] Rd | | | | | | [place], [place] | | | | | | [address] | | | | | | [phone] | | | | | | | | +--------+---------+ + + + documented as of this encounter Visit Diagnoses Not on filedocumented in this encounter"
--- OUTSIDE RECORDS SUMMARY | ~2019-08-21 | XMS | Encounter Summary ---
Demographics + + + | Address | [address] | | | [place] [address] | + + + | Home Phone | | + + + | Preferred Language | Unknown | + + + | Marital Status | | + + + | Congregation Affiliation | 1077 | + + + | Race | Unknown | + + + | Ethnic Group | Unknown | + + + Author + + + | Author | [facility] | | | and Vladislavana | + + + | Organization | [facility] | | | and Vladislavana [...] Team Providers + +------+ + | Care Equipment Service Lead Name | Role | Phone | + +------+ + PCP | Unavailable | + +------+ + Encounter Details +--------+ + + + + | Date | Type | Department | Care Team | Description | +--------+ + + + + | 03/31/ | Hospital | [facility] | | | | 1992 | Encounter | MED CTR LABORATORY | | | | | | [address] | | | | | | [place] | | | | | | [address] | | | | | | [phone] | | | +--------+ + + + [...] | 08/26/ | Office | Gastroenterology | [facility] | | | 2019 | Visit | | RAJAN Ramirez [address] | | | | | | [address] | | | | | | [place] | | | | | | [address] | | | | | | | | +--------+---------+ + + + documented as of this encounter Visit Diagnoses Not on filedocumented in this encounter"
--- OUTSIDE RECORDS SUMMARY | ~2019-08-21 | XMS | Encounter Summary ---
Demographics + + + | Address | [address] | | | [place] [address] | + + + | Home Phone [...] | Organization | [facility] | [...] Team Providers + +------+ + | Care Aircraft Engine Mechanic Supervisor Name | Role | Phone | + +------+ + PCP | Unavailable | + +------+ + Encounter Details +--------+ + + + + | Date | Type | Department | Care Team | Description | +--------+ + + + + | 06/15/ | Hospital | [facility] | | | | 1993 | Encounter | MED CTR EMERGENCY | | | | | | CENTER [address] | | | | | | [place] | | | | | | [address] | | | | | | [phone] | | | +--------+ + + + [...] | 08/26/ | Office | Gastroenterology | [facility] | | | 2019 | Visit | | RAJAN Ramirez [address] | | | | | | [address] | | | | | | [place] | | | | | | [id number] | | | | | | | | +--------+---------+ + + + documented as of this encounter Visit Diagnoses Not on filedocumented in this encounter"
--- OUTSIDE RECORDS SUMMARY | ~2019-08-21 | XMS | Clinical Summary ---
Demographics + + + | Address | [address] | | | [place] [address] | + + + | Home Phone | | + + + | Preferred Language | Unknown | + + + | Marital Status | Single | + + + | Jehovah'S Witness Affiliation | Unknown | + + + [...] Team Providers + +------+ + | Care Counselor Dormitory Name | Role | Phone | + +------+ + | Akilah Phoenix | PCP | | + +------+ + Source Comments RANI is fully live on both EpicCare Ambulatory and EpicCare InPatient.[facility] Allergies + + + + + + [...] [address] | | | | | | [place], [place] | | | | | | [address] | | | | | | [phone] | | | | | | | [...] | MEDICA | xxxxxxxxxxx | 05/23/19 | [phone] | [address] | Med[address] | | | RE A & | | [address] | 1 | [address] | re | | | B | | sent | | [place] | | | | | | | | [address] | | + +--------+ +--------+ + +--------+ [...] | 1950 | [phone] | [place] [address] | | | johnathan | | | 8 (Home) | | + +--------+ +--------+ + +
--- OUTSIDE RECORDS SUMMARY | ~2019-08-21 | XMS | Encounter Summary ---
Demographics + + + | Address | [address] | | | [place] [address] | + + + | Home Phone [...] Author + + + | Author | [facility] | + + + | Organization | [facility] | + + + | Address [...] Team Providers + +------+ + | Care Early Childhood Special Educator Name | Role | Phone | + [...] | | | | Mailcode: Center | [place], [place] | | | | | for Health and | [address] | | | | | [place] [address] | [phone] | | | | | [place], [place] | | | | | | [address] | | | | | | [phone] | | | +--------+ + + + [...] 2019 | Visit | | [address] | | | | | [address] | | | | | | [place], [place] | | | | | | [address] | | | | | | [phone] | | | | | | | | +--------+---------+ + + + documented as of this encounter Visit Diagnoses Not on filedocumented in this encounter"
--- OUTSIDE RECORDS SUMMARY | ~2019-08-21 | XMS | Encounter Summary ---
Demographics + + + | Address | [address] | | | [place] [address] | + + + | Home Phone [...] + | Organization | [facility] | | | and [...] Team Providers + +------+ + | Care Scrap Hooker Name | Role | Phone | + +------+ + PCP | Unavailable | + +------+ + Encounter Details +--------+ + + + + | Date | Type | Department | Care Team | Description | +--------+ + + + + | 09/17/ | Hospital | [facility] | | | | 1993 | Encounter | MED CTR EMERGENCY | | | | | | CENTER [address] | | | | | | [place] | | | | | | [address] | | | | | | [phone] | | | +--------+ + + + [...] | 08/26/ | Office | Gastroenterology | [facility] | | | 2019 | Visit | | RAJAN [address] | | | | | | [address] | | | | | | [place] | | | | | | [address] | | | | | | | | +--------+---------+ + + + documented as of this encounter Visit Diagnoses Not on filedocumented in this encounter"
--- OUTSIDE RECORDS SUMMARY | ~2019-08-21 | XMS | Encounter Summary ---
Demographics + + + | Address | [address] | | | [place] [address] | + + + | Home Phone | | + + + | Preferred Language | Unknown | + + + | Marital Status | Single | + + + | Anabaptist Affiliation | Unknown | + + + | Race | White | + + + | Ethnic Group | Not or | + + + Author + + + | Author | [facility] | + + + | Organization | [facility] | + + + | Address [...] Team Providers + +------+ + | Care Wrapper Stripper Name | Role | Phone | + [...] | Dysphagia | MD Jacquelin | [address] | | | | | Procedures | [address] | [address] | | | | | CONSULT TO | [address] | [address] | | | | | GI PROCEDURE | [address] | Mailcode: | | | | | UNIT: | [place], [place] | [address] | | | | | ESOPHAGEAL | [address] | [place] | | | | | MANOMETRY | Phone: | [employer] [address] | | | | | | [phone] | [place], | | | | | | Fax: | [place] [address] | | | | | | [phone] | Phone: | | | | | | | [phone] | | | | | | | Fax: | | | | | | | [phone] | +--------+--------+ + + + + Reason [...] | | | | | | [place] [address] | Healing, | | | | | | Phone: | [employer] [address] | | | | | | [phone] | [place], [place] | | | | | | Fax: | [address] | | | | | | [phone] | Phone: | | | | | | | [phone] | | | | | | | Fax: | | | | | | | [phone] | +--------+--------+ + + + + Encounter [...] | | RON Lee | [address] [place], | Gastroesophageal | | | | Mailcode: [place] | [place] [address] | reflux disease with | | | | for Health and | [phone] | esophagitis; [facility] | | | | Healing, [address] | | hernia with | | | | [place], [place] | | gastroesophageal | | | | [address] | | reflux | | | | [phone] | | | +--------+---------+ + + + [...] hernia, has been seeing Dr. Lucas in [place] who is planning magda stiven to fix [...] of colon cancer SOCIAL HISTORY Lives in [facility] No tobacco No etoh No [...] | 2019 | Visit | | [address] | | | | | | [facility] | | | | | | [place], [place] | | | | | | [address] | | | | | | [phone] | | | | | | | [...]
--- OUTSIDE RECORDS SUMMARY | ~2019-08-21 | XMS | Encounter Summary ---
Demographics + + + | Address | [address] | | | [place] [address] | + + + | Home Phone [...] [facility] | | | and [...] Team Providers + +------+ + | Care Insurance Application Investigator Name | Role | Phone | + +------+ + | Vaelntine Oh MD | PCP | | + +------+ + Encounter Details +--------+ + + + + | Date | Type | Department | Care Team | Description | +--------+ + + + + | 08/26/ | Hospital | [facility] | [place], | | | 2000 | Encounter | [facility] | [address] | | | | | GENERIC OP CONV DEPT | [address] | | | | | [address] | [place], [place] | | | | | [place], [place] | [address] | | | | | [address] | [phone] | | | | | [phone] | | | +--------+ + + + [...] | 08/26/ | Office | Gastroenterology | [facility], | | | 2019 | Visit | | RAJAN [address] | | | | | | [address] | | | | | | [place] | | | | | | [address] | | | | | | | | +--------+---------+ + + + documented as of this encounter Visit Diagnoses Not on filedocumented in this encounter"
--- OUTSIDE RECORDS SUMMARY | ~2019-08-21 | XMS | Encounter Summary ---
Demographics + + + | Address | [address] | | | [place] [address] | + + + | Home Phone [...] | Organization | [facility] [...] Team Providers + +------+ + | Care Rv Mechanic Name | Role | Phone | + +------+ + PCP | Unavailable | + +------+ + Encounter Details +--------+ + + + + | Date | Type | Department | Care Team | Description | +--------+ + + + + | 08/14/ | Hospital | [facility] | | | | 1996 - | Encounter | MED CTR ICU [address] | | | | | | [address], | | | | 08/16/ | | [place] [address] | | | | 1996 | | [phone] | | | +--------+ + + + [...] 08/26/ | Office | Gastroenterology | [facility] | | | 2019 | Visit | | RAJAN [address] | | | | | | [address] | | | | | | [place] | | | | | | [address] | | | | | | | | +--------+---------+ + + + documented as of this encounter Visit Diagnoses Not on filedocumented in this encounter"
--- OUTSIDE RECORDS SUMMARY | ~2019-08-21 | XMS | Encounter Summary ---
Demographics + + + | Address | [address] | | | [place] [address] | + + + | Home Phone [...] Team Providers + +------+ + | Care Erp Specialist Name | Role | Phone | [...] Rd | | | | | | [place], [place] | | | | | | [address] | | | | | | [phone] | | | | | | | | +--------+---------+ + + + documented as of this encounter Visit Diagnoses Not on filedocumented in this encounter"
--- OUTSIDE RECORDS SUMMARY | ~2019-08-21 | XMS | Encounter Summary ---
Demographics + + + | Address | [address] | | | [place] [address] | + + + | Home Phone | | + + + | Preferred Language | Unknown | + + + | Marital Status | | + + + | Jain Affiliation | 1077 | + + + | Race | Unknown | + + + | Ethnic Group | Unknown | + + + Author + + + | Author | [facility] | | | and Vladislavana | + + + | Organization | [facility] | | | and [...] Providers + +------+ + | Care Glass Designer Name | Role | Phone | + +------+ + PCP | Unavailable | + +------+ + Encounter Details +--------+ + + + + | Date | Type | Department | Care Team | Description | +--------+ + + + + | 09/17/ | Hospital | [facility] | | | | 1993 - | Encounter | MED CTR GENERIC PSY | | | | | | CONV DEPT [address] | | | | 09/24/ | | [address], | | | | 1994 | | [place] [address] | | | | | | [phone] | | | +--------+ + + + [...] | 08/26/ | Office | Gastroenterology | [facility], | | | 2019 | Visit | | RAJAN [address] | | | | | | [address] | | | | | | [place] | | | | | | [address] | | | | | | | | +--------+---------+ + + + documented as of this encounter Visit Diagnoses Not on filedocumented in this encounter"
--- OUTSIDE RECORDS SUMMARY | ~2019-08-21 | XMS | Encounter Summary ---
Demographics + + + | Address | [address] | | | [place] [address] | + + + | Home Phone [...] [facility] | | | and [...] Team Providers + +------+ + | Care Milking Machine Technician Name | Role | Phone | [...] | [address] [place] | [place], [address] | | | | | [address] [place], [place] | [place], [place] | | | | | [address] | [address] | | | | | [phone] | | | +--------+ + + + [...] | 08/26/ | Office | Gastroenterology | [facility], | | | 2019 | Visit | | RAJAN [address] | | | | | | [address] | | | | | | [place] | | | | | | [address] | | | | | | | | +--------+---------+ + + + documented as of this encounter Visit Diagnoses Not on filedocumented in this encounter"
--- OUTSIDE RECORDS SUMMARY | ~2019-08-21 | XMS | Encounter Summary ---
Demographics + + + | Address | [address] | | | [place] [address] | + + + | Home Phone [...] | Organization | [facility] | | | and [...] Team Providers + +------+ + | Care Price Clerk Name | Role | Phone | + +------+ + PCP | Unavailable | + +------+ + Encounter Details +--------+ + + + + | Date | Type | Department | Care Team | Description | +--------+ + + + + | 03/31/ | Hospital | [facility] | | | | 1992 | Encounter | MED CTR LABORATORY | | | | | | [address] | | | | | | [place] | | | | | | [address] | | | | | | [phone] | | | +--------+ + + + [...] 08/26/ | Office | Gastroenterology | [facility] | | | 2019 | Visit | | RAJAN [address] | | | | | | [address] | | | | | | [place] | | | | | | [address] | | | | | | | | +--------+---------+ + + + documented as of this encounter Visit Diagnoses Not on filedocumented in this encounter"
--- OUTSIDE RECORDS SUMMARY | ~2019-08-21 | XMS | Encounter Summary ---
Demographics + + + | Address | [address] | | | [place] [address] | + + + | Home Phone | | + + + | Preferred Language | Unknown | + + + | Marital Status | | + + + | Christianity Affiliation | 1077 | + + + | Race | Unknown | + + + | Ethnic Group | Unknown | + + + Author + + + | Author | [facility] | | | and Vladislavana | + + + | Organization | [facility] | | | and Vladislavana [...] Team Providers + +------+ + | Care Pay Agent Name | Role | Phone | + +------+ + PCP | Unavailable | + +------+ + Encounter Details +--------+ + + + + | Date | Type | Department | Care Team | Description | +--------+ + + + + | 08/16/ | Hospital | [facility] | | | | 1996 - | Encounter | MED CTR GENERIC PSY | | | | | | CONV DEPT [address] | | | | 08/22/ | | [address], | | | | 1996 | | [place] [address] | | | | | | [phone] | | | +--------+ + + + [...] | 08/26/ | Office | Gastroenterology | [facility], | | | 2019 | Visit | | RAJAN Ramirez [address] | | | | | | [address] | | | | | | [place] | | | | | | [address] | | | | | | | | +--------+---------+ + + + documented as of this encounter Visit Diagnoses Not on filedocumented in this encounter"
--- OUTSIDE RECORDS SUMMARY | ~2019-08-21 | XMS | Encounter Summary ---
Demographics + + + | Address | [address] | | | [place] [address] | + + + | Home Phone [...] | Organization | [facility] | | | [...] Team Providers + +------+ + | Care Digital Marketing Strategist Name | Role | Phone | + +------+ + PCP | Unavailable | + +------+ + Encounter Details +--------+ + + + + | Date | Type | Department | Care Team | Description | +--------+ + + + + | 09/17/ | Hospital | [facility] | | | | 1993 | Encounter | MED CTR EMERGENCY | | | | | | CENTER [address] | | | | | | [place] | | | | | | [address] | | | | | | [phone] | | | +--------+ + + + [...] | 08/26/ | Office | Gastroenterology | [facility] | | | 2019 | Visit | | RAJAN Ramirez [address] | | | | | | [address] | | | | | | [place] | | | | | | [address] | | | | | | | | +--------+---------+ + + + documented as of this encounter Visit Diagnoses Not on filedocumented in this encounter"
--- OUTSIDE RECORDS SUMMARY | ~2019-08-21 | XMS | Encounter Summary ---
Demographics + + + | Address | [address] | | | [place] [address] | + + + | Home Phone | | + + + | Preferred Language | Unknown | + + + | Marital Status | | + + + | Scientology Affiliation | 1077 | + + + | Race | Unknown | + + + | Ethnic Group | Unknown | + + + Author + + + | Author | [facility] | | | and Vladislavana | + + + | Organization | [facility] | | | and [...] Team Providers + +------+ + | Care Stamping Machine Operator Name | Role | Phone | + +------+ + | Valentine Oh MD | PCP | | + +------+ + Encounter Details +--------+ + + + + | Date | Type | Department | Care Team | Description | +--------+ + + + + | 09/23/ | Hospital | [facility] | Huy Daniels MD | | | 2001 | Encounter | [facility] | | | | | | GENERIC OP CONV DEPT | | | | | | [address] | | | | | | [place] | | | | | | [address] | | | | | | [phone] | | | +--------+ + + + [...] | 08/26/ | Office | Gastroenterology | [facility], | | | 2019 | Visit | | RAJAN Ramirez [address] | | | | | | [address] | | | | | | [place] | | | | | | [address] | | | | | | | | +--------+---------+ + + + documented as of this encounter Visit Diagnoses Not on filedocumented in this encounter"
--- OUTSIDE RECORDS SUMMARY | ~2019-08-21 | XMS | Encounter Summary ---
Demographics + + + | Address | [address] | | | [place] [address] | + + + | Home Phone [...] + + | Author | [facility] | | | and Vladislavana | + + + | Organization | [facility] | | | and [...] Team Providers + +------+ + | Care Cloth Wire Weaver Name | Role | Phone | + +------+ + PCP | Unavailable | + +------+ + Encounter Details +--------+ + + + + | Date | Type | Department | Care Team | Description | +--------+ + + + + | 06/20/ | Hospital | [facility] | | | | 1992 | Encounter | MED CTR LABORATORY | | | | | | [address] | | | | | | [place] | | | | | | [address] | | | | | | [phone] | | | +--------+ + + + [...] [place] | | | | | | [id number] | | | | | | | | +--------+---------+ + + + documented as of this encounter Visit Diagnoses Not on filedocumented in this encounter"
--- OUTSIDE RECORDS SUMMARY | ~2019-08-21 | XMS | Encounter Summary ---
Demographics + + + | Address | [address] | | | [place] [address] | + + + | Home Phone | | + + + | Preferred Language | Unknown | + + + | Marital Status | | + + + | Jainism Affiliation | 1077 | + + + | Race | Unknown | + + + | Ethnic Group | Unknown | + + + Author + + + | Author | [facility] | | | and Vladislavana | + + + | Organization | [facility] | [...] Team Providers + +------+ + | Care Brass Molder Name | Role | Phone | + +------+ + PCP | Unavailable | + +------+ + Encounter Details +--------+ + + + + | Date | Type | Department | Care Team | Description | +--------+ + + + + | 09/05/ | Hospital | [facility] | | | | 1996 | Encounter | MED CTR XRAY [address] | | | | | | [address] | | | | | | [place] [address] | | | | | | [phone] | | | +--------+ + + + [...] | 08/26/ | Office | Gastroenterology | [facility] | | 2019 | Visit | | RAJAN Ramirez [address] | | | | | | [address] | | | | | | [place] | | | | | | [address] | | | | | | | | +--------+---------+ + + + documented as of this encounter Visit Diagnoses Not on filedocumented in this encounter"
--- OUTSIDE RECORDS SUMMARY | ~2019-08-21 | XMS | Encounter Summary ---
Demographics + + + | Address | [address] | | | [place] [address] | + + + | Home Phone [...] + | Organization | [facility] | | [...] Team Providers + +------+ + | Care Prison Librarian Name | Role | Phone | + +------+ + PCP | Unavailable | + +------+ + Encounter Details +--------+ + + + + | Date | Type | Department | Care Team | Description | +--------+ + + + + | 07/08/ | Hospital | [facility] | | | | 1991 | Encounter | MED CTR EMERGENCY | | | | | | CENTER [address] | | | | | | [place] | | | | | | [address] | | | | | | [phone] | | | +--------+ + + + [...] | 08/26/ | Office | Gastroenterology | [facility] | | | 2019 | Visit | | RAJAN [address] | | | | | | [address] | | | | | | [place] | | | | | | [id number] | | | | | | | | +--------+---------+ + + + documented as of this encounter Visit Diagnoses Not on filedocumented in this encounter"
--- OUTSIDE RECORDS SUMMARY | ~2019-08-21 | XMS | Encounter Summary ---
Demographics + + + | Address | [address] | | | [place] [address] | + + + | Home Phone | | + + + | Preferred Language | Unknown | + + + | Marital Status | Single | + + + | Scientology Affiliation | Unknown | + + + | Race | White | + + + | Ethnic Group | Not or | + + + Author + + + | Author | [facility] | + + + | Organization | [facility] | + + + | Address [...] Team Providers + +------+ + | Care Mining Machinery Assembler Name | Role | Phone | [...] | | | | [address] | [facility] | | | | | Mailcode: Center | [place], [place] | | | | | [facility] and | [address] | | | | | [facility] [address] | [phone] | | | | | [place], [place] | | | | | | [address] | | | | | | [phone] | | | +--------+ + + + [...] | | 2019 | Visit | | [address] | | | | | | [address] | | | | | | [place], [place] | | | | | | [address] | | | | | | [phone] | | | | | | | | +--------+---------+ + + + documented as of this encounter Visit Diagnoses Not on filedocumented in this encounter"
--- OUTSIDE RECORDS SUMMARY | ~2019-08-21 | XMS | Encounter Summary ---
Demographics + + + | Address | [address] | | | [place] [address] | + + + | Home Phone [...] | Organization | [facility] | | | and [...] Team Providers + +------+ + | Care Mechanical Equipment Sales Engineer Name | Role | Phone | + +------+ + PCP | Unavailable | + +------+ + Encounter Details +--------+ + + + + | Date | Type | Department | Care Team | Description | +--------+ + + + + | 05/08/ | Hospital | [facility] | | | | 1992 - | Encounter | MED CTR OP REHAB | | | | | | [address] | | | | 08/22/ | | [place] [address] | | | | 1992 | | [phone] | | | +--------+ + + + [...] [place] | | | | | | [id number] | | | | | | | | +--------+---------+ + + + documented as of this encounter Visit Diagnoses Not on filedocumented in this encounter"
--- OUTSIDE RECORDS SUMMARY | ~2019-08-21 | XMS | Encounter Summary ---
Demographics + + + | Address | [address] | | | [place] [address] | + + + | Home Phone [...] | [facility] | | | and [place]islavana [...] Team Providers + +------+ + | Care Pantry Goods Worker Name | Role | Phone | + +------+ + PCP | Unavailable | + +------+ + Encounter Details +--------+ + + + + | Date | Type | Department | Care Team | Description | +--------+ + + + + | 05/15/ | Hospital | [facility] | | | | 1997 | Encounter | MED CTR GENERIC OP | | | | | | CONV DEPT [address] | | | | | | [address] [place], | | | | | | [place] [address] | | | | | | [phone] | | | +--------+ + + + [...] 08/26/ | Office | Gastroenterology | [facility] | | | 2019 | Visit | | RAJAN [address] | | | | | | [address] | | | | | | [place] | | | | | | [address] | | | | | | | | +--------+---------+ + + + documented as of this encounter Visit Diagnoses Not on filedocumented in this encounter"
--- OUTSIDE RECORDS SUMMARY | ~2019-08-21 | XMS | Encounter Summary ---
Demographics + + + | Address | [address] | | | [place] [address] | + + + | Home Phone [...] | Organization | [facility] | [...] Team Providers + +------+ + | Care Contestant Coordinator Name | Role | Phone | + +------+ + PCP | Unavailable | + +------+ + Encounter Details +--------+ + + + + | Date | Type | Department | Care Team | Description | +--------+ + + + + | 07/17/ | Hospital | [facility] | | | | 1992 | Encounter | MED CTR LABORATORY | | | | | | [address] | | | | | | [place] | | | | | | [address] | | | | | | [phone] | | | +--------+ + + + [...] | Office | Gastroenterology | [facility] | | | 2019 | Visit | | RAJAN [address] | | | | | | [address] | | | | | | [place] | | | | | | [address] | | | | | | | | +--------+---------+ + + + documented as of this encounter Visit Diagnoses Not on filedocumented in this encounter"
--- OUTSIDE RECORDS SUMMARY | ~2019-08-21 | XMS | Encounter Summary ---
Demographics + + + | Address | [address] | | | [place] [address] | + + + | Home Phone | | + + + | Preferred Language | Unknown | + + + | Marital Status | | + + + | Mosque Affiliation | 1077 | + + + | Race | Unknown | + + + | Ethnic Group | Unknown | + + + Author + + + | Author | [facility] | | | and Vladislavana | + + + | Organization | [facility] | | [...] Providers + +------+ + | Care Railroad Carman Name | Role | Phone | + +------+ + PCP | Unavailable | + +------+ + Encounter Details +--------+ + + + + | Date | Type | Department | Care Team | Description | +--------+ + + + + | 07/08/ | Hospital | [facility] | | | | 1991 | Encounter | MED CTR EMERGENCY | | | | | | CENTER [address] | | | | | | [place] | | | | | | [address] | | | | | | [phone] | | | +--------+ + + + [...] | 08/26/ | Office | Gastroenterology | [facility] | | | 2019 | Visit | | RAJAN [address] | | | | | | [address] | | | | | | [place] | | | | | | [id number] | | | | | | | | +--------+---------+ + + + documented as of this encounter Visit Diagnoses Not on filedocumented in this encounter"
--- OUTSIDE RECORDS SUMMARY | ~2019-08-21 | XMS | Encounter Summary ---
Demographics + + + | Address | [address] | | | [place] [address] | + + + | Home Phone | | + + + | Preferred Language | Unknown | + + + | Marital Status | | + + + | Voodoo Affiliation | 1077 | + + + | Race | Unknown | + + + | Ethnic Group | Unknown | + + + Author + + + | Author | [facility] | | | and Vladislavana | + + + | Organization | [facility] [...] Team Providers + +------+ + | Care Ticker Maintainer Name | Role | Phone | + [...] [place] | | | | | [address], [place] | [place] [address] | | | | | [address] | [phone] | | | | | [phone] | | | +--------+ + + + [...] | Gastroenterology | [facility], | | | 2019 | Visit | | RAJAN [address] | | | | | | [address] | | | | | | [place] | | | | | | [address] | | | | | | | [...]
--- OUTSIDE RECORDS SUMMARY | ~2019-08-21 | XMS | Encounter Summary ---
Demographics + + + | Address | [address] | | | [place] [address] | + + + | Home Phone [...] Author + + + | Author | [facility] | + + + | Organization | [facility] | + + + | [...] Team Providers + +------+ + | Care Cabbage Salter Name | Role | Phone | + [...] | | | | Mailcode: Center | [place], [place] | | | | | for Health and | [address] | | | | | [place] [address] | [phone] | | | | | [place], [place] | | | | | | [address] | | | | | | [phone] | | | +--------+ + + + [...] Rd | | | | | | [place], [place] | | | | | | [address] | | | | | | [phone] | | | | | | | | +--------+---------+ + + + documented as of this encounter Visit Diagnoses Not on filedocumented in this encounter"
--- OUTSIDE RECORDS SUMMARY | ~2019-08-21 | XMS | Encounter Summary ---
Demographics + + + | Address | [address] | | | [place] [address] | + + + | Home Phone | | + + + | Preferred Language | Unknown | + + + | Marital Status | | + + + | Islam Affiliation | 1077 | + + + | Race | Unknown | + + + | Ethnic Group | Unknown | + + + Author + + + | Author | [facility] | | | and [place]isl[place]ana | + + + | Organization | [facility] | [...] Providers + +------+ + | Care Traffic Maintenance Supervisor Name | Role | Phone | + +------+ + PCP | Unavailable | + +------+ + Encounter Details +--------+ + + + + | Date | Type | Department | Care Team | Description | +--------+ + + + + | 08/29/ | Hospital | [facility] | | | | 1996 | Encounter | MED CTR LABORATORY | | | | | | [address] | | | | | | [place] | | | | | | [address] | | | | | | [phone] | | | +--------+ + + + [...] | 08/26/ | Office | Gastroenterology | [facility] | | | 2019 | Visit | | RAJAN [address] | | | | | | [address] | | | | | | [place] | | | | | | [address] | | | | | | | | +--------+---------+ + + + documented as of this encounter Visit Diagnoses Not on filedocumented in this encounter"
--- OUTSIDE RECORDS SUMMARY | ~2019-08-21 | XMS | Encounter Summary ---
Demographics + + + | Address | [address] | | | [place] [address] | + + + | Home Phone [...] | Organization | [facility] [...] Team Providers + +------+ + | Care Student Teaching Coordinator Name | Role | Phone | + +------+ + PCP | Unavailable | + +------+ + Encounter Details +--------+ + + + + | Date | Type | Department | Care Team | Description | +--------+ + + + + | 05/21/ | Hospital | [facility] | | | | 1993 - | Encounter | MED CTR GENERIC PSY | | | | | | CONV DEPT [address] | | | | 06/03/ | | [address] [place], | | | | 1993 | | [place] [address] | | | | | | [phone] | | | +--------+ + + + [...] | Office | Gastroenterology | [facility], | | | 2019 | Visit | | RAJAN [address] | | | | | | [address] | | | | | | [place] | | | | | | [address] | | | | | | | | +--------+---------+ + + + documented as of this encounter Visit Diagnoses Not on filedocumented in this encounter"
--- OUTSIDE RECORDS SUMMARY | ~2019-08-21 | XMS | Encounter Summary ---
Demographics + + + | Address | [address] | | | [place] [address] | + + + | Home Phone [...] | Organization | [facility] | | | [...] Team Providers + +------+ + | Care Blast Furnace Keeper Name | Role | Phone | + +------+ + PCP | Unavailable | + +------+ + Encounter Details +--------+ + + + + | Date | Type | Department | Care Team | Description | +--------+ + + + + | 09/01/ | Hospital | [facility] | | | | 1993 | Encounter | MED CTR EMERGENCY | | | | | | CENTER [address] | | | | | | [place] | | | | | | [address] | | | | | | [phone] | | | +--------+ + + + [...] | Office | Gastroenterology | [facility] | | | 2019 | Visit | | RAJAN [address] | | | | | | [address] | | | | | | [place] | | | | | | [address] | | | | | | | | +--------+---------+ + + + documented as of this encounter Visit Diagnoses Not on filedocumented in this encounter"
--- OUTSIDE RECORDS SUMMARY | ~2019-08-21 | XMS | Encounter Summary ---
Demographics + + + | Address | [address] | | | [place] [address] | + + + | Home Phone [...] + | Organization | [facility] | | | and [place]isl[place]ana [...] Team Providers + +------+ + | Care Lead Software Developer Name | Role | Phone | + +------+ + PCP | Unavailable | + +------+ + Encounter Details +--------+ + + + + | Date | Type | Department | Care Team | Description | +--------+ + + + + | 07/14/ | Hospital | [facility] | | | | 1997 | Encounter | MED CTR GENERIC OP | | | | | | CONV DEPT [address] | | | | | | [address] [place], | | | | | | [place] [address] | | | | | | [phone] | | | +--------+ + + + [...] [place] | | | | | | [id number] | | | | | | | | +--------+---------+ + + + documented as of this encounter Visit Diagnoses Not on filedocumented in this encounter"
--- OUTSIDE RECORDS SUMMARY | ~2019-08-21 | XMS | Encounter Summary ---
Demographics + + + | Address | [address] | | | [place] [address] | + + + | Home Phone [...] | Organization | [facility] | | | and [place]isl[place]ana [...] Team Providers + +------+ + | Care Form Setter Name | Role | Phone | + +------+ + PCP | Unavailable | + +------+ + Encounter Details +--------+ + + + + | Date | Type | Department | Care Team | Description | +--------+ + + + + | 08/29/ | Hospital | [facility] | | | | 1996 | Encounter | MED CTR LABORATORY | | | | | | [address] | | | | | | [place] | | | | | | [address] | | | | | | [phone] | | | +--------+ + + + [...] | 08/26/ | Office | Gastroenterology | [facility] | | | 2019 | Visit | | RAJAN [address] | | | | | | [address] | | | | | | [place] | | | | | | [phone] | | | | | | | | +--------+---------+ + + + documented as of this encounter Visit Diagnoses Not on filedocumented in this encounter"
--- OUTSIDE RECORDS SUMMARY | ~2019-08-21 | XMS | Encounter Summary ---
Demographics + + + | Address | [address] | | | [place] [address] | + + + | Home Phone | | + + + | Preferred Language | Unknown | + + + | Marital Status | | + + + | Evangelical Affiliation | 1077 | + + + | Race | Unknown | + + + | Ethnic Group | Unknown | + + + Author + + + | Author | [facility] | | | and [place]isl[place] | + + + | Organization | [facility] | | [...] Providers + +------+ + | Care Skin Specialist Name | Role | Phone | + +------+ + PCP | Unavailable | + +------+ + Encounter Details +--------+ + + + + | Date | Type | Department | Care Team | Description | +--------+ + + + + | 08/14/ | Hospital | [facility] | | | | 1991 | Encounter | MED CTR XRAY [address] | | | | | | [address] | | | | | | [place] [address] | | | | | | [phone] | | | +--------+ + + + [...] 08/26/ | Office | Gastroenterology | [facility] | | 2019 | Visit | | RAJAN [address] | | | | | | [address] | | | | | | [place] | | | | | | [address] | | | | | | | | +--------+---------+ + + + documented as of this encounter Visit Diagnoses Not on filedocumented in this encounter"
--- OUTSIDE RECORDS SUMMARY | ~2019-08-21 | XMS | Encounter Summary ---
Demographics + + + | Address | [address] | | | [place] [address] | + + + | Home Phone | | + + + | Preferred Language | Unknown | + + + | Marital Status | | + + + | Jain Affiliation | 1077 | + + + | Race | Unknown | + + + | Ethnic Group | Unknown | + + + Author + + + | Author | [facility] | | | and [place] | + + + | Organization | [facility] | | | and [place] [...] Team Providers + +------+ + | Care Mat Cleaning Machine Operator Name | Role | Phone | + +------+ + PCP | Unavailable | + +------+ + Encounter Details +--------+ + + + + | Date | Type | Department | Care Team | Description | +--------+ + + + + | 11/05/ | Hospital | [facility] | | | | 1993 | Encounter | MED CTR XRAY [address] | | | | | | [address] | | | | | | [place] [address] | | | | | | [phone] | | | +--------+ + + + [...] | 08/26/ | Office | Gastroenterology | [facility] | | 2019 | Visit | | RAJAN [address] | | | | | | [address] | | | | | | [place] | | | | | | [address] | | | | | | | | +--------+---------+ + + + documented as of this encounter Visit Diagnoses Not on filedocumented in this encounter"
--- OUTSIDE RECORDS SUMMARY | ~2019-08-21 | XMS | Encounter Summary ---
Demographics + + + | Address | [address] | | | [place] [address] | + + + | Home Phone | | + + + | Preferred Language | Unknown | + + + | Marital Status | Single | + + + | Worship Affiliation | Unknown | + + + | Race | White | + + + | Ethnic Group | Not or | + + + Author + + + | Author | [facility] | + + + | Organization | [facility] | + + + | [...] Team Providers + +------+ + | Care Automobile Tester Name | Role | Phone | + [...] | | | diarrhea | medicine | [facility] | | | | | | [address] and | | | | | | [address] | [address]aling, | | | | | | [address] | [address] | | | | | | [place], | [place], [place] | | | | | | [place] [address] | [address] | | | | | | Phone: | Phone: | | | | | | [phone] | [phone] | | | | | | Fax: | Fax: | | | | | | [phone] | [phone] | +--------+--------+ + + + + Encounter [...] | | | | Mailcode: Center | [place], [place] | | | | | for Health and | [address] | | | | | [facility] [address] | [phone] | | | | | [place], [place] | | | | | | [address] | | | | | | [phone] | | | +--------+---------+ + + + [...] different fro m the original. Gastroenterology Clinic [facility] ~ Initial Consultation / New Patient Evaluation Referring Physician: Hilary Chowdhury Chief Complaint: Chief Complaint Patient presents with New patient consultation Patient Identification: Corrina Nixon is a 68 y.o. female with a history of hypothyroi dism, major depressive disorder and remote anorexia nervosa who presents to the [facility]ology [facility] for evaluation and [...] cancer, or other issues. ~Huy Tello MD [facility] ESOPHAGEAL MOTILITY STUDY 02/22/2015 (presume some abnormality though I have leonora records ) GASTRIC FUNDOPLICATION 2015 GASTRIC MOTILITY STUDY 12/29/2017 Gastric emptying study. Normal Study. ~Maverick Ulrich MD [facility] HERNIA REPAIR 01/2016 Laparoscopic repair of paraesophageal hernia, Heller myotomy, Liza gastroplasty, partial fundoplication Dr. Mclain Swanstrom NECK SURGERY 1995 UPPER GASTROINTESTINAL ENDOSCOPY 12/11/2016 IMPRESSION: Mildly disordered esophageal motility. Small sliding type hiatal hernia. Modera te sized diverticulum arising from the horizontal portion of the duodenum. ~Ganga Riley [facility] UPPER GASTROINTESTINAL ENDOSCOPY 05/13/2017 Impression: No [...] file Gets together: Not on file Attends scientology service: Not on file Active member of [...] MD MS GI and Hepatology Fellow Pager [phone] Associated attestation - Ronald Turk MD - [...] | 2019 | Visit | | [address] | | | | | | [facility] | | | | | | [place], [place] | | | | | | [address] | | | | | | [phone] | | | | | | | | +--------+---------+ + + + documented as of this encounter Visit Diagnoses + + | Diagnosis | + + | Chronic abdominal pain - Primary Abdominal pain, unspecified site | + + | Chronic diarrhea Diarrhea | + + documented in this encounter
--- OUTSIDE RECORDS SUMMARY | ~2019-08-21 | XMS | Encounter Summary ---
Demographics + + + | Address | [address] | | | [place] [address] | + + + | Home Phone [...] [facility] | | | and [...] Team Providers + +------+ + | Care Bilingual Speech Therapist Name | Role | Phone | + +------+ + PCP | Unavailable | + +------+ + Encounter Details +--------+ + + + + | Date | Type | Department | Care Team | Description | +--------+ + + + + | 08/14/ | Hospital | [facility] | | | | 1996 | Encounter | [facility] EM[facility] | | | | | | CENTER [address] | | | | | | [place] | | | | | | [address] | | | | | | [phone] | | | +--------+ + + + [...] | 08/26/ | Office | Gastroenterology | [facility] | | | 2019 | Visit | | RAJAN Ramirez [address] | | | | | | [address] | | | | | | [place] | | | | | | [phone] | | | | | | | | +--------+---------+ + + + documented as of this encounter Visit Diagnoses Not on filedocumented in this encounter"
--- OUTSIDE RECORDS SUMMARY | ~2019-08-21 | XMS | Clinical Summary ---
Demographics + + + | Address | [address] | | | [place] [address] | + + + | Home Phone | | + + + | Preferred Language | Unknown | + + + | Marital Status | | + + + | Church Affiliation | 1077 | + + + | Race | Unknown | + + + | Ethnic Group | Unknown | + + + Author + + + | Author | [facility] | | | and Vladislavana | + + + | Organization | [facility] | | | and Vladislavana [...] Team Providers + +------+ + | Care News Operations Manager Name | Role | Phone | [...] automatically from request for surgery | | [id number] | + + + + + | Unintentional weight loss | 06/30/2019 | + + + + + | Overview: Added automatically from request for surgery | | [id number] | + + + + + | Abdominal pain, generalized | 06/30/2019 | + + + + + | Overview: Added automatically from request for surgery | | [id number] | + + + + + | [...] | 06/23/ | Telephone | Gastroenterology | [facility], | LABS | | 2018 | | | RAJAN Ramirez | | +--------+ + + + + | 06/08/ | Office | [facility] | [facility], | Diarrhea, | | 2018 | Visit [...] | 08/26/ | Office | Gastroenterology | [facility] | | 2019 | Visit | | RAJAN Ramirez [address] | | | | | | [address] | | | | | | [place] | | | | | | [phone] | | | | | | | [...] | PROVATION | | 07/05/2019 10:17 AMMRN: [id number] #: [id number] of | | | : 1950Admit Type: AmbulatoryAge: 68Room: Endo Room 2Gender: | | | FemaleNote Status: FinalizedAttending MD: MAGNUS SMITH , | | | MDProcedure: ColonoscopyIndications: Chronic | | | diarrhea, Rectal painProviders: MAGNUS SMITH MD, | | | Tova Yuen RN, Brisa Olmedo RN, | | | Loni Arambula, Telemarketing Agent, Tc Soto, TechnicianReferring MD: | | | [...] | preparation was evaluated using the BBPS (Eldred Bowel | | | Preparation Scale) with [...] Scope In: 10:33:01 AMScope Out: 11:02:11 AM [facility] | | | [facility], [address] [place] [address] | | | [phone] | | | - Biopsies were taken [...] Out: 11:02:11 AM | | | [facility], [address] [place] | | | [address] | | + + ----+ + +---------+ [...] + | Colonoscopy | See Full Report~ [facility] | | | | | | [...] diagnostic | | | abnormality. CLR:[facility]:C2NR GROSS DESCRIPTION: Five specimens | [...] component was | | | performed by [employer] [address] | | | (Correspondence School Instructor: Lurdes Saul MD; CLIA# [id number]). Professional | | | interpretation was performed by [facility]. | | | [address] [address] | | | (Correspondence School Instructor: Thom Bright M.D.; CLIA#: | | | [id number]). Diagnostician: Thom Bright MD | | | [...] +--------+ +---------+--------+ | MEDICARE | MEDICA | [id number] | 05/23/19 | [phone] | | Medica | | | RE | | 99-Pre | 5 | | re | | | PART A | | sent | | | | | | AND B | | | | | | + +--------+ +--------+ +---------+--------+ | | CHAMPV | [id number] | 04/29/20 | [phone] | | Indemn [...] | | al/Fam | | 1950 | [phone] | [place] [address] | | | johnathan | | | 8 (Home) | | + +--------+ +--------+ + + Advance Directives + + + + + | Type | Date Recorded | Patient | Explanation | | | | Aircraft Line Assembler | | + + + + + | Power of | | | | | Machine Lead Burner | | | | + + + + + | Advance | 07/05/2019 | | | | Directive | 7:57 AM | | | + + + + +
--- OUTSIDE RECORDS SUMMARY | ~2019-08-21 | XMS | Encounter Summary ---
Demographics + + + | Address | [address] | | | [place] [address] | + + + | Home Phone | | + + + | Preferred Language | Unknown | + + + | Marital Status | | + + + | Zoroastrianism Affiliation | 1077 | + + + | Race | Unknown | + + + | Ethnic Group | Unknown | + + + Author + + + | Author | [facility] | | | and Vladislavana | + + + | Organization | [facility] | [...] Providers + +------+ + | Care Leather Coverer Name | Role | Phone | + +------+ + PCP | Unavailable | + +------+ + Encounter Details +--------+ + + + + | Date | Type | Department | Care Team | Description | +--------+ + + + + | 09/17/ | Hospital | [facility] | | | | 1993 - | Encounter | MED CTR GENERIC PSY | | | | | | CONV DEPT [address] | | | | 09/24/ | | [address] [place], | | | | 1994 | | [place] [address] | | | | | | [phone] | | | +--------+ + + + [...] [place] | | | | | | [address] | | | | | | | | +--------+---------+ + + + documented as of this encounter Visit Diagnoses Not on filedocumented in this encounter"
--- OUTSIDE RECORDS SUMMARY | ~2019-08-21 | XMS | Encounter Summary ---
Demographics + + + | Address | [address] | | | [place] [address] | + + + | Home Phone | | + + + | Preferred Language | Unknown | + + + | Marital Status | | + + + | Hindu Affiliation | 1077 | + + + | Race | Unknown | + + + | Ethnic Group | Unknown | + + + Author + + + | Author | [facility] | | | and Vladislavana | + + + | Organization | [facility] | | [...] Team Providers + +------+ + | Care Optimization Analyst Name | Role | Phone | + +------+ + | Valentine Oh MD | PCP | | + +------+ + Encounter Details +--------+ + + + + | Date | Type | Department | Care Team | Description | +--------+ + + + + | 04/09/ | Hospital | [address] | Elham Burkett, | | | 1999 - | Encounter | [facility] | MD Mario Jernigan | | | | | GENERIC OP CONV DEPT | [place] [address] | | | 04/10/ | | [address] | [phone] | | | 1999 | | [place] | | | | | | [address] | | | | | | [phone] | | | +--------+ + + + [...] | 08/26/ | Office | [facility]ology | [facility] | | [facility] | Visit | | RAJAN Ramirez [address] | | | | | | [address] | | | | | | [place] | | | | | | [address] | | | | | | | | +--------+---------+ + + + documented as of this encounter Visit Diagnoses Not on filedocumented in this encounter"
[~2019-08-21 17:44] MED LIST changes: +TRAMADOL HCL50 MG PO
--- OUTSIDE RECORDS SUMMARY | 2019-08-21 17:48 | XMS ---
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 Too VISIT COUNT (12 MO.) 2 GILMA Alvarenga TOTAL 2 NOTE: Visits indicate total known visits. ED/UCC VISIT TRACKING (12 MO.) 08/21/2019 17:45 GILMA [place] TYPE: Emergency COMPLAINT: - RECTAL BLEEDING 05/18/2019 22:57 GILMA Stewart [place] TYPE: Emergency COMPLAINT: - FALL/FOOT PAIN DIAGNOSES: - Dizziness and giddiness - Other long-term (current) drug therapy - Fall on same level, unspecified, initial encounter - Major depressive disorder, single episode, unspecified - Allergy status to narcotic agent status - Unspecified sprain of right foot, initial encounter - Allergy status to oth drug/meds/biol subst status INPATIENT VISIT TRACKING (12 MO.) No inpatient visits to display in this time frame [email or web address]
[2019-08-22] MEDS ORDERED: NORTRIPTYL10 MG/5 ML PO (00:48)
[2019-08-22] MEDS ORDERED: LOPERAMIDE2 MG PO (00:48)
--- NOTE | 2019-08-22 01:00 | NUR ---
PATIENT ARRIVED VIA STRETCHER. TRANSFERED INDEPENDENTLY TO THE BED. VS STABLE. PATIENT PLACED ON FRAME RUNNER. PATIENT REPORTS CHRONIC PAIN IN HER ABD/EPIGASTRIC AREA SINCE A HIATAL HERNIA REPAIR DONE SEVERAL YEARS AGO. PAIN IS WORSE WITH FOOD. PATIENT TAKES PRN TRAMADOL 50 MG AT HOME FOR THIS PAIN. PATIENT ALSO REPORTS A LARGE RECTAL PROLAPSE, WHICH IS AN ONGOING PROBLEM FOR SOMETIME. PATIENT REPORTS THE NEED TO REDUCE THE PROLAPSE WITH EACH TRIP TO THE BATHROOM. PATIENT EXPERIENCES PAIN WHEN THIS OCCURS BUT IS CURRENTLY NOT IN PAIN. NO NAUSEA. ABD IS TENDER AND BOWEL SOUNDS ARE ACTIVE. PATIENT'S SKIN IS INTACT. LUNGS ARE CLEAR. PATIENT REPORTS WEARING 2L NC AT HOME WHILE SLEEPING. PULSE OX IN PLACE TO MONITOR NEED FOR O2. IV FLUIDS PER ORDER. CALL LIGHT IN REACH. PATIENT DENIES ANY FURTHER NEEDS.
--- NOTE | 2019-08-22 03:00 | NUR ---
PATIENT UP TO VOID. AMBULATED TO THE BATHROOM, STEADY ON HER FEET. HR 70'S WITH ACTIVITY. PATIENT DENIES FEELING DIZZY OR LIGHTHEADED. REPORTS PAIN IN EPIGASTRIC AREA, 06/01. WARM PACK PROVIDED. PATIENT RETURNED TO BED. IV FLUIDS PER ORDER, SITE WNL. CALL LIGHT IN REACH.
--- NOTE | 2019-08-22 04:39 | NUR ---
PATIENT UP TO BSC. STEADY ON HER FEET. REPORTS SOME PAIN RELIEF WITH WARM PACK APPLIED TO HER ABD. DENIES ANY CONCERNS. IV FLUIDS PER ORDER, SITE WNL. VS STABLE. PATIENT RETURNED TO BED. NO FURTHER NEEDS AT THIS TIME.
--- NOTE | 2019-08-22 06:30 | NUR ---
PATIENT UP TO BSC. HAD MEDIUM SOFT FORMED BM WITH A SMITH COLOR. PATIENT WAS SURPRISED THIS WAS NOT LOOSE STOOL, WHICH IS HER BASELINE. PATIENT APPEARED TO REDUCE THE RECTAL PROLAPSE BY HAND AND STATED SHE DID. UNABLE TO VISUALIZE AT THIS TIME. APPEARED VERY PAINFUL. PATIENT RETURNED TO BED. DENIED ANY FURTHER NEEDS. CALL LIGHT IN REACH.
--- NOTE | 2019-08-22 07:30 | NUR ---
PATIENT SHIFT REPORT RECIEVED FROM CHARGE ACCOUNT CLERK RN. PATIENT RESTING IN BED AT THIS TIME. PATIENT CALLS APPROPRIATELY. CALL LIGHT IN REACH. WILL CONTINUE TO CLOSELY MONITOR.
[2019-08-22] MEDS ORDERED: OMEPRAZOLE20 MG PO (07:55)
--- NOTE | 2019-08-22 08:15 | NUR ---
PATIENT CALLED TO GET UP TO THE BATHROOM. PATIENT UP AND IS STABLE ON HER FEET. PATIENT BACK TO BED ON HER OWN. PATIENT HAD A MEDIUM SOFT SMITH BOWEL MOVEMENT WITH NO BLOOD NOTED. ASSESSMENT COMPLETED. PATIENT BREATH SOUNDS CLEAR. BOWEL TONES ACTIVE. PATIENT COMPLAINS OF UPPER LEFT AND RIGHT ABD PAIN. PATIENT DENIES ANY OTHER NEEDS AT THIS TIME. WILL CONTINUE TO CLOSELY MONITOR.
[2019-08-22] MEDS ORDERED: NEURONTIN300 MG PO (08:34)
[2019-08-22] MEDS ORDERED: GABAPENTIN300 MG PO (08:34)
--- NOTE | 2019-08-22 09:34 | NUR ---
IN FOR PTS INITIAL CASE MANAGEMENT ASSESSMENT. PT REPORTS NO NEEDS AT HOME. FAMILY IN ROOM WITH PT.
--- NOTE | 2019-08-22 10:00 | NUR ---
PATIENT UP TO BEDSIDE CAMMODE ON HER OWN AND IS TOELRATING WELL. NO FURTHER SIGNS OF BLEEDING. PATIENT DENEIS ANY LIGHTHEADEDNESS. NO SOB WITH ACTIVITY. CLEAR LIQUID TRAY ORDERED FOR PATIENT. WILL PLAN TO TRANSFER PATIENT TO [facility] PER MD BEYER. WILL CONTINUE TO CLOSELY MONTIOR.
--- NOTE | 2019-08-22 11:35 | NUR ---
MED REC COMPLETE
[2019-08-22] MEDS ORDERED: PHENADOZ25 MG PR (11:37)
[2019-08-22] MEDS ORDERED: CYANOCOBAL1000 MCG/M SUB-Q (11:37)
[2019-08-22] MEDS ORDERED: VENTOLIN HFA18 GM INH (11:38)
[2019-08-22] MEDS ORDERED: ULTRAM50 MG PO (11:39)
--- NOTE | 2019-08-22 12:00 | NUR ---
[facility]. FAMILY HAS BEEN IN AND OUT TO SEE PATIENT TODAY. PATIENT AND FAMILY UPDATED ON PLAN OF CARE. WILL CONTINUE TO CLOSELY MONITOR AND TRANSFER TO [facility] TODAY. PATIENT IS TOLERATING WELL AND NO SIGNS OF RECTAL BLEEDING. VITALS REMAIN STABLE. PATIENT STATES "I HOPE I GET TO GO HOME TODAY". ADDITIONAL BROTH PROVIDED. WILL CONTINUE TO CLOSELY MONITOR.
--- NOTE | 2019-08-22 13:15 | NUR ---
PATIENT WILL BE TRANSFERED TO ROOM 118. REPORT GIVEN TO VELVET BAKER. UPDATED ON PLAN OF CARE. RN DENIES FURTHER QUESTIONS. UPDATED PATIENT PATIENT IS AGREEABLE TO PLAN OF CARE. WILL CONTINUE TO CLOSELY MONITOR.
--- NOTE | 2019-08-22 14:01 | NUR ---
PT TO ROOM 118 FROM CCU. PT ORIENTED TO ROOM/UNIT AND POC DISCUSSED. ASSESSMENT COMPLETED CALL LIGHT AND H2O IN REACH. NO NEEDS OR CONCERNS VOICED.
--- NOTE | 2019-08-22 14:01 | NUR ---
PATIENT WALKED TO ROOM 118 WITH NO ISSUES. PATIENT TOELRATED WELL. OLIVIA VERDIN IN ROOM TO ORIENT PATIENT AND FAMILY TO HER NEW ROOM. ALL BELONINGS SENT WITH PATIENT. ALL QUESTIONS ANSWERED. WILL CONTINUE TO CLOSELY MONITOR.
--- NOTE | 2019-08-22 16:15 | NUR ---
CALL LIGHT ANSWERED. PATIENT RESTING IN BED. PATIENT GOES TO USE BATHROOM. ONE PERSON ASSISTING. PATIENT BACKS TO BED. CALL LIGHT WITHIN REACH. NO OTHER NEEDS AT THIS TIME
--- NOTE | 2019-08-22 17:05 | NUR ---
PT VOICED READINESS FOR DISHCARGE. PT SITTING UP IN BED TEXTING ON PHONE. CALL LIGHT AND H2O IN REACH. NO FURTHER NEEDS OR CONCERNS VOICED.
--- NOTE | 2019-08-22 17:20 | NUR ---
PATIENT RESTING IN BED. VISITOR IN ROOM. VITAL SIGNS AND I&O DONE. CALL LIGHT WITHIN REACH. NO OTHER NEEDS AT THIS TIME
== END 2019-08-22 18:35 | disposition home or self-care (01) ==
LOC: ED 17:44 → MS 17:46 → CCU 17:46 → MS 08-22 13:45
PROVIDERS: ADMIT Internal Medicine
DX: K92.2 Gastrointestinal hemorrhage, unspecified (principal); E03.9 Hypothyroidism, unspecified; D61.818 Other pancytopenia; K62.3 Rectal prolapse; R10.10 Upper abdominal pain, unspecified; G89.29 Other chronic pain; F33.9 Major depressive disorder, recurrent, unspecified; Z79.899 Other long term (current) drug therapy; Z88.8 Allergy status to other drugs, medicaments and biological substances; Z88.5 Allergy status to narcotic agent
CPT/HCPCS: 36415; 80053; 85014; 85018; 85025; 85610; 85730; 86850; 86900; 86901; 86920; 96360; 96361; 99284-25; G0378; J7030; J7121

== ENCOUNTER 2019-10-25 13:57 | Emergency (ER) | payer MEDICARE, OTHER ==
[~2019-10-25] VITALS: Ht 167.6 cm; Wt 64.0 kg
[~2019-10-25 13:57] MED LIST changes: +CYANOCOBAL1000 MCG/M SUB-Q; +GABAPENTIN300 MG PO; +LOPERAMIDE2 MG PO; +NEURONTIN300 MG PO; +NORTRIPTYL10 MG/5 ML PO; +OMEPRAZOLE20 MG PO; +PHENADOZ25 MG PR; +VENTOLIN HFA18 GM INH
--- OUTSIDE RECORDS SUMMARY | 2019-10-25 14:00 | XMS ---
PreManage Notification: BARBARA ROTHMAN Security Radiologic Therapist Events No recent Security Events currently on file CRITERIA MET - [facility] PROVIDERS JANNETTE GARCIA Physician Vascular Technician 05/19/2019-Current PHONE: Unknown Paty has no Care Guidelines for this patient. Care History Medical/Surgical 08/23/2019 [facility] - [facility] MIKEY Gage VISIT COUNT (12 MO.) 3 [facility] TOTAL 3 NOTE: Visits indicate total known visits. ED/UCC VISIT TRACKING (12 MO.) 10/25/2019 13:58 [facility] [place] TYPE: Emergency COMPLAINT: - SHAKINESS, HALLUCINATIONS 08/21/2019 17:45 [facility] [place] TYPE: Emergency COMPLAINT: - RECTAL BLEEDING 05/18/2019 22:57 [facility] [place] TYPE: Emergency COMPLAINT: - FALL/FOOT PAIN DIAGNOSES: - Dizziness and giddiness - Other rodent exterminator (current) drug therapy - Fall on same level, unspecified, initial encounter - Major depressive disorder, single episode, unspecified - Allergy status to narcotic agent status - Unspecified sprain of right foot, initial encounter - Allergy status to oth drug/meds/biol subst status INPATIENT VISIT TRACKING (12 MO.) 08/21/2019 17:[address] [facility] [place] TYPE: Observation COMPLAINT: - GI BLEED DIAGNOSES: - Other chronic pain - Hemorrhage of anus and rectum - Other pancytopenia - Allergy status to oth drug/meds/biol subst status - Other fdc (current) drug therapy - Allergy status to narcotic agent status - Major depressive disorder, single episode, unspecified - Gastrointestinal hemorrhage, unspecified - Major depressive disorder, recurrent, unspecified - Rectal prolapse - Upper abdominal pain, unspecified - Hypothyroidism, unspecified [email or web address]
== END 2019-10-25 18:15 | disposition home or self-care (01) ==
LOC: ED 13:57
DX: E86.0 Dehydration (principal); F50.9 Eating disorder, unspecified; F32.9 Major depressive disorder, single episode, unspecified; Z87.891 Personal history of nicotine dependence; Z88.8 Allergy status to other drugs, medicaments and biological substances; Z88.5 Allergy status to narcotic agent; Z79.899 Other long term (current) drug therapy
CPT/HCPCS: 80053; 85025; 96360; 96361; 99284-25; J7030

== ENCOUNTER 2021-08-14 14:37 | Emergency (ER) | payer MEDICARE, OTHER ==
[~2021-08-14] VITALS: Ht 167.6 cm; Wt 64.0 kg
[2021-08-14] MEDS ORDERED: ALLOPURINOL100 MG PO (15:19)
[2021-08-14] MEDS ORDERED: LEVOTHYROXINE150 MC1 PO (15:20)
[2021-08-14] MEDS ORDERED: ULTRAM50 MG PO (15:21)
[2021-08-14] MEDS ORDERED: LEXAPRO20 MG PO (15:22)
[2021-08-14] MEDS ORDERED: MYSOLINE50 MG PO (15:22)
[2021-08-14] MEDS ORDERED: PROAIR HFA8.5 GM INH (17:32)
[2021-08-14] MEDS ORDERED: PREDNISONE20 MG PO (17:32)
--- NOTE | 2021-08-15 19:53 | EKG ---
[facility] [address] [place] [address] Signed Normal sinus rhythm Left axis deviation Right bundle branch block Abnormal ECG When compared with ECG of 20-AUG-2018 08:42, No significant change was found Confirmed by RANDAL GALVAN DO ([id number]) on 08/15/2021 7:53:05 PM Electronically Signed By: RANDAL GALVAN DO 08/15/211952 PATIENT NAME: ROTHMANBARBARA Electrocardiogram DATE OF : 50 PHYSICIAN: RANDAL GALVAN DO REPORT #: [id number] REPORT IS CONFIDENTIAL AND NOT TO BE RELEASED WITHOUT AUTHORIZATION
== END 2021-08-14 17:50 | disposition home or self-care (01) ==
LOC: ED 14:37
DX: J40 Bronchitis, not specified as acute or chronic (principal); Z87.891 Personal history of nicotine dependence; Z88.8 Allergy status to other drugs, medicaments and biological substances; Z88.5 Allergy status to narcotic agent; Z79.899 Other long term (current) drug therapy; Z20.822 Contact with and (suspected) exposure to COVID-19
CPT/HCPCS: 71045; 80053; 83605; 83880; 84484; 85025; 93005; 93010; 94640; 94664; 99285-25; C9803; J7040; U0003

== ENCOUNTER 2022-07-28 16:16 | Emergency (ER) | payer MEDICARE, OTHER ==
[~2022-07-28] VITALS: Ht 167.6 cm; Wt 64.0 kg
[~2022-07-28 16:16] MED LIST changes: +ALLOPURINOL100 MG PO; +LEVOTHYROXINE175 MC1 PO; +LEXAPRO20 MG PO; +MYSOLINE50 MG PO; +PREDNISONE20 MG PO; +PROAIR HFA8.5 GM INH
--- OUTSIDE RECORDS SUMMARY | 2022-07-28 16:18 | XMS ---
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 Care History Medical/Surgical 08/23/2019 [facility] MIKEY Gage VISIT COUNT (12 MO.) [address] [facility] TOTAL 2 NOTE: Visits indicate total known visits. ED/UCC VISIT TRACKING (12 MO.) 07/28/2022 16:16 [facility] [place] TYPE: Emergency COMPLAINT: - DIZZINESS 08/14/2021 14:38 [facility] [place] TYPE: Emergency COMPLAINT: - SOB, HEADACHE, COUGH, FEVER DIAGNOSES: - Cough, unspecified - Allergy status to narcotic agent - COUGH, UNSPECIFIED - Other assisted (current) drug therapy - Allergy status to other drugs, medicaments and biological substances - Personal history of nicotine dependence - Bronchitis, not specified as acute or chronic - Contact with and (suspected) exposure to COVID-19 INPATIENT VISIT TRACKING (12 MO.) No inpatient visits to display in this time frame [email or web address]
[2022-07-28] MEDS ORDERED: DICYCLOMINE HCL20 MG PO (16:31)
--- NOTE | 2022-07-28 21:37 | EKG ---
[facility] [address] [place] [address] Signed Normal sinus rhythm Right bundle branch block Abnormal ECG When compared with ECG of 14-AUG-2021 15:28, No significant change was found Confirmed by Glenn Moya MD () on 07/28/2022 9:36:42 PM Electronically Signed By: GLENN MOYA MD 07/28/22 2137 PATIENT NAME: BARBARA ROTHMAN FAUSTINO Electrocardiogram DATE OF : 50 PHYSICIAN: GLENN MOYA MD REPORT #: [id number] REPORT IS CONFIDENTIAL AND NOT TO BE RELEASED WITHOUT AUTHORIZATION
== END 2022-07-28 18:39 | disposition home or self-care (01) ==
LOC: ED 16:16
DX: E86.0 Dehydration (principal); R53.1 Weakness; Z87.891 Personal history of nicotine dependence; Z88.8 Allergy status to other drugs, medicaments and biological substances; Z88.5 Allergy status to narcotic agent; Z79.899 Other long term (current) drug therapy; Z79.891 Long term (current) use of opiate analgesic
CPT/HCPCS: 36415; 71045; 80053; 81001; 83735; 84439; 84443; 84484; 85025; 93005; 93010; 96360; 99285-25; A9270; J7030

== ENCOUNTER 2022-10-16 18:28 | Emergency (ER) | payer MEDICARE, OTHER ==
[~2022-10-16] VITALS: Ht 167.6 cm; Wt 73.5 kg
[~2022-10-16 18:28] MED LIST changes: +DICYCLOMINE HCL20 MG PO
--- OUTSIDE RECORDS SUMMARY | 2022-10-16 18:31 | XMS ---
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 Care History Medical/Surgical 08/23/2019 [facility] - [facility] MIKEY Gage VISIT COUNT (12 MO.) 2 [facility] TOTAL 2 NOTE: Visits indicate total known visits. 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
== END 2022-10-16 18:55 | disposition home or self-care (01) ==
LOC: ED 18:28
PROC: 0XQPXZZ Repair Left Index Finger, External Approach (ICD-10-PCS; principal; 2022-10-16)
DX: S61.211A Laceration without foreign body of left index finger without damage to nail, initial encounter (principal); Z87.891 Personal history of nicotine dependence; Z88.8 Allergy status to other drugs, medicaments and biological substances; Z88.5 Allergy status to narcotic agent; Z79.899 Other long term (current) drug therapy; W27.4XXA Contact with kitchen utensil, initial encounter
CPT/HCPCS: 12001; 99282-25

== ENCOUNTER 2022-10-20 18:03 | Emergency (ER) | payer MEDICARE, OTHER ==
[~2022-10-20] VITALS: Ht 167.6 cm; Wt 73.5 kg
--- OUTSIDE RECORDS SUMMARY | 2022-10-20 18:08 | XMS ---
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 Care History Medical/Surgical 08/23/2019 [facility] - PATIENT [facility] MIKEY Gage VISIT COUNT (12 MO.) 3 [facility]. TOTAL 3 NOTE: Visits indicate total known visits. ED/UCC VISIT TRACKING (12 MO.) 10/20/2022 18:05 [facility] [place] TYPE: Emergency COMPLAINT: - WOUND CK 10/16/2022 18:28 [facility] [place] TYPE: Emergency COMPLAINT: - LACERATION DIAGNOSES: - Other shelter (current) drug therapy - Allergy status to other drugs, medicaments and biological substances - Laceration without foreign body of left index finger without damage to nail, initial encounter - Personal history of nicotine dependence - Contact with kitchen utensil, initial encounter - Allergy status to narcotic agent 07/28/2022 16:16 [facility] [place] TYPE: Emergency COMPLAINT: - DIZZINESS DIAGNOSES: - Dehydration - 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
[2022-10-20] MEDS ORDERED: CEPHALEXIN500 M1 PO (18:57)
== END 2022-10-20 19:25 | disposition home or self-care (01) ==
LOC: ED 18:03
DX: S61.211D Laceration without foreign body of left index finger without damage to nail, subsequent encounter (principal); L08.9 Local infection of the skin and subcutaneous tissue, unspecified; Z87.891 Personal history of nicotine dependence; Z88.8 Allergy status to other drugs, medicaments and biological substances; Z88.5 Allergy status to narcotic agent; Z79.899 Other long term (current) drug therapy
CPT/HCPCS: 99282; A9270

== ENCOUNTER 2024-12-20 15:58 | Emergency (ER) | payer MEDICARE, OTHER ==
[~2024-12-20] VITALS: Ht 167.6 cm; Wt 79.0 kg
[~2024-12-20 15:58] MED LIST changes: +CEPHALEXIN500 M1 PO
[2024-12-20] MEDS ORDERED: KETOROLAC TROMETHAMINE 30 MG/ML VIAL IV ONE (23:15)
[2024-12-20 23:27] LABS: BASOPHILS 0.5 % (0-2); EOSINOPHILS 4.2 % (0-6); HEMATOCRIT 41.6 % (35.0-50.0); HEMOGLOBIN 14.2 g/dL (12.0-18.0); LYMPHOCYTES 37.3 % (24-44); MCH 30.2 (27-36); MCHC 34.1 g/dl (30-36); MCV 88.6 fl (81-99); MONOCYTES 10.2 % (0-12); NEUTROPHILS 47.8 % (39-80); PLATELET COUNT 125 K/uL (140-440); RBC 4.69 M/ul (4.3-5.7); RDW 13.9 (10.5-15.0)
[2024-12-21 00:05] LABS: ALBUMIN 3.8 g/dL (3.4-5.0); ALBUMIN/GLOBULIN RATIO 1.27 (1.1-2.4); ANION GAP 9.5 (7-21); BILIRUBIN, TOTAL 0.7 mg/dL (0.2-1.0); BUN/CREATININE RATIO 11.71 (6.0-28.6); CALCIUM 9.6 mg/dL (8.5-10.1); CREATININE, SERUM 1.11 mg/dL (0.55-1.02); POTASSIUM 3.5 mmol/L (3.5-5.1); PROTEIN, TOTAL 6.8 g/dL (6.4-8.2)
[2024-12-21 00:41] LABS: ERYTHROCYTE SEDIMENTATION RATE 3
[2024-12-21 02:32] VITALS: BP 147/80
== END 2024-12-21 02:31 | disposition home or self-care (01) ==
LOC: ED 15:58
PROVIDERS: Internal Medicine
DX: M17.12 Unilateral primary osteoarthritis, left knee (principal); Z87.891 Personal history of nicotine dependence; Z88.9 Allergy status to unspecified drugs, medicaments and biological substances; Z88.5 Allergy status to narcotic agent
CPT/HCPCS: 36415; 73560; 80053; 84550; 85025; 85651; 86140; 96374; 99283-25; J1885

== ENCOUNTER 2025-01-18 20:21 | Emergency (ER) | payer MEDICARE, OTHER ==
[~2025-01-18] VITALS: Ht 167.6 cm; Wt 78.5 kg
[2025-01-18] MEDS ORDERED: diphenhydrAMINE HCL 50 MG/ML VIAL IV ONE (21:15)
[2025-01-18 21:20] LABS: BASOPHILS 0.2 % (0-2); EOSINOPHILS 0.9 % (0-6); HEMATOCRIT 40.4 % (35.0-50.0); HEMOGLOBIN 13.8 g/dL (12.0-18.0); LYMPHOCYTES 9.1 % (24-44); MCH 30.4 (27-36); MCHC 34.1 g/dl (30-36); MCV 89.3 fl (81-99); MONOCYTES 9.8 % (0-12); PLATELET COUNT 113 K/uL (140-440); RBC 4.53 M/ul (4.3-5.7); RDW 13.8 (10.5-15.0)
[2025-01-18 21:38] LABS: ALBUMIN 3.7 g/dL (3.4-5.0); ALBUMIN/GLOBULIN RATIO 1.16 (1.1-2.4); ALCOHOL, MEDICAL <3 ng/dL (<3); ALKALINE PHOSPHATASE 400 U/L (46-116); ALT (SGPT) 305 U/L (14-59); ANION GAP 9.5 (7-21); AST (SGOT) 307 U/L (15-37); BILIRUBIN, TOTAL 3.6 mg/dL (0.2-1.0); CALCIUM 9.5 mg/dL (8.5-10.1); CARBON DIOXIDE 31 mmol/L (21-32); CHLORIDE 102 mmol/L (98-107); CREATININE, SERUM 1.25 mg/dL (0.55-1.02); GLOMERULAR FILTRATION RATE,EST 45 mL/min (>60); POTASSIUM 4.5 mmol/L (3.5-5.1); PROTEIN, TOTAL 6.9 g/dL (6.4-8.2); UREA NITROGEN 15 mg/dL (7-18)
[2025-01-18] MEDS ORDERED: LACTATED RINGER'S 1,000 ML IV ONE (22:45)
[2025-01-18 22:58] LABS: CREATINE KINASE 47 U/L (26-192)
[2025-01-18 22:59] LABS: ACETAMINOPHEN 0 ug/mL (10-30); SALICYLATE <0.2 mg/dL (2.8-20.0)
[2025-01-18 23:29] LABS: BILIRUBIN, URINE NEGATIVE (negative); BLOOD/HGB, URINE NEGATIVE (Negative); KETONE, URINE NEGATIVE (Negative); LEUK ESTERASE, URINE NEGATIVE (negative); NITRITE, URINE NEGATIVE (negative)
[2025-01-18 23:43] LABS: AMPHETAMINES, URINE NEGATIVE (NEGATIVE); BARBITURATES, URINE NEGATIVE (NEGATIVE); BENZODIAZEPINE, URINE NEGATIVE (NEGATIVE); BUPRENORPHINE, URINE NEGATIVE (NEGATIVE); CANNABINOID, URINE NEGATIVE (NEGATIVE); COCAINE, URINE NEGATIVE (NEGATIVE); ECSTASY, URINE NEGATIVE (NEGATIVE); FENTANYL, URINE NEGATIVE (NEGATIVE); METHADONE, URINE NEGATIVE (NEGATIVE); OPIATES, URINE NEGATIVE (NEGATIVE); OXYCODONE, URINE NEGATIVE (NEGATIVE); PHENCYCLIDINE, URINE NEGATIVE (NEGATIVE)
[2025-01-19] MEDS ORDERED: LEVODOPA/CARBIDOPA 25/100 1 EA TAB PO ONE (01:45)
--- OUTSIDE RECORDS SUMMARY | 2025-01-19 02:51 | XMS ---
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 Care History Medical/Surgical 08/23/2019 [facility] \R\- [facility] MIKEY Gage VISIT COUNT ([address] 2 [facility] TOTAL 2 NOTE: Visits indicate total known visits. ED/UCC VISIT TRACKING (12 MO.) 01/19/2025 02:44 [facility] [place] TYPE: Emergency COMPLAINT: - WEAKNESS 12/20/2024 15:58 [facility] [place] TYPE: Emergency COMPLAINT: - KNEE ISSUE DIAGNOSES: - Allergy status to narcotic agent - Allergy status to unspecified drugs, medicaments and biological substances - Pain in left knee - Personal history of nicotine dependence - Unilateral primary osteoarthritis, left knee INPATIENT VISIT TRACKING (12 MO.) No inpatient visits to display in this time frame [email or web address]
[2025-01-19 02:55] VITALS: BP 140/77
--- NOTE | 2025-01-20 08:13 | EKG ---
[facility] [address] [place] [address] Signed Normal sinus rhythm Left axis deviation Right bundle branch block Abnormal ECG When compared with ECG of 28-JUL-2022 16:34, Vent. rate has increased BY 33 BPM Confirmed by Eren Carlson DO ([id number]) on 01/20/2025 8:13:37 AM Electronically Signed By: EREN CARLSON DO 01/20/25 0813 PATIENT NAME: BARBARA ROTHMAN FAUSTINO Electrocardiogram DATE OF : 50 PHYSICIAN: EREN CARLSON DO REPORT #: [id number] REPORT IS CONFIDENTIAL AND NOT TO BE RELEASED WITHOUT AUTHORIZATION
== END 2025-01-19 02:45 | disposition home or self-care (01) ==
LOC: ED 20:21
PROVIDERS: Internal Medicine
DX: G20.C Parkinsonism, unspecified (principal); R74.01 Elevation of levels of liver transaminase levels; Z87.891 Personal history of nicotine dependence; Z79.899 Other long term (current) drug therapy
CPT/HCPCS: 36415; 70450; 70496; 70498; 71045; 76705; 80053; 80307; 81003; 82140; 82550; 83605; 83690; 83880; 84484; 85025; 93005; 93010; 99285-25; G0480; J1200; J7121; Q9967

== ENCOUNTER 2025-06-01 21:52 | Emergency (ER) | payer MEDICARE, OTHER ==
[~2025-06-01] VITALS: Ht 167.6 cm; Wt 78.5 kg
[2025-06-01] MEDS ORDERED: ACETAMINOPHEN 500 MG TAB PO ONE (23:15)
[2025-06-01 23:38] VITALS: BP 137/75
== END 2025-06-01 23:39 | disposition home or self-care (01) ==
LOC: ED 21:52
DX: S70.01XA Contusion of right hip, initial encounter (principal); S70.11XA Contusion of right thigh, initial encounter; Z87.891 Personal history of nicotine dependence; Z88.8 Allergy status to other drugs, medicaments and biological substances; Z88.5 Allergy status to narcotic agent; Z79.890 Hormone replacement therapy; Z79.899 Other long term (current) drug therapy; W18.30XA Fall on same level, unspecified, initial encounter
CPT/HCPCS: 73502; 99283; A9270